=== PATIENT | male | born 1930 | race Caucasian/White ===

== ENCOUNTER 2016-06-02 09:30 | Inpatient (IN) | payer BC, OTHER ==
[~2016-06-02] VITALS: Ht 177.8 cm; Wt 93.2 kg
[~2016-06-02 09:30] MED LIST: ASPEC81 PO; AVD5 PO; B-COCAP2 PO; CRD4 PO; CRS10 PO; HYDR-5688 PO; LANS30CA12; METO1TAB69 PO; METR0.754; OMEG10007 PO; PRENTAB26 PO; PRLSR20 PO; SILD100T PO
[2016-06-02] MEDS ORDERED: CELE100C PO (09:45)
[2016-06-02] MEDS ORDERED: LISI1TAB3 PO (09:45)
[2016-06-02] MEDS ORDERED: CARB25TA12 PO (09:45)
[2016-06-02] MEDS ORDERED: B-CO1CAP3 PO (09:45)
[2016-06-02] MEDS ORDERED: MULTCAP42 PO (09:45)
[2016-06-02] MEDS ORDERED: METR0.7527 TOP (09:45)
[2016-06-02] MEDS ORDERED: METOPROLOL SUCC 50MG EXT REL TAB PO STA (10:10)
[2016-06-02] MEDS ORDERED: ACETAMINOPHEN 325 MG TAB PO STA (10:10)
[2016-06-02] MEDS ORDERED: ROSUVASTATIN CALCIUM 5 MG TAB PO ONE (10:15)
[2016-06-02] MEDS ORDERED: LISINOPRIL 5 MG TAB PO ONE (10:15)
[2016-06-02] MEDS ORDERED: SODIUM CHLORIDE 0.9% 1000ML 1,000 ML IV ONE (10:15)
[2016-06-02] MEDS ORDERED: CARBIDOPA/LEVODOPA 25/100MG TAB PO ONE ×2 (10:15→15:00)
[2016-06-02] MEDS ORDERED: ACETAMINOPHEN 500 MG TAB PO ONE (10:18)
[2016-06-02] MEDS ORDERED: LISINOPRIL 10 MG TAB PO ONE (10:30)
--- NOTE | 2016-06-02 10:33 | EMERGENCY ROOM VISIT NOTE ---
History Report prepared by Markie: Trinity Alford Under the Supervision of: Dr. Rolan Turner M.D. First contact with patient: 09:55 Chief Complaint: FEVER Stated Complaint: WEAKNESS History of Present Illness The patient is a 85 year old male who presents to the Emergency Room with complaints of worsening weakness beginning yesterday evening. He states that he just feels generally weak all over and denies feeling more weak on one side of his body. The patient had a fever on arrival in the ED. He denies feeling confused but is unsure of the day or month. He does not know who the president is. He denies any cough or abdominal pain. The patient's family states that he has had increased urinary frequency and some urinary incontinence. He was recently treated for a UTI. He has been moving his bowels normally and eating and drinking normally. The patient has not taken any medications for his fever. He has not had any of his daily medications today. Source of History: patient, family, spouse/significant other Onset: yesterday evening Position: other (global) Quality: other (weakness) Timing: worsening Associated Symptoms: + fevers, + urinary symptoms, No abdominal pain, No cough Review of Systems All systems have been listed, reviewed, and are negative other than those previously mentioned. Please see Additional Medical History Sheet. Past Medical & Surgical Medical Problems: (1) Aortic stenosis (2) Bilateral sensorineural hearing loss (3) CKD (chronic kidney disease), stage III (4) Dyslipidemia (5) Esophageal reflux (6) HTN (hypertension) (7) Hx of malignant melanoma (8) Hypoxia (9) Mild coronary artery disease (10) Osteoarthritis (11) Parkinsons disease (12) Rosacea Surgical Problems: (1) H/O aortic valve replacement (2) H/O arthroscopic knee surgery (3) H/O exploratory laparotomy (4) H/O inguinal hernia repair (5) H/O total hip arthroplasty (6) History of appendectomy (7) History of cataract surgery (8) S/P appendectomy (9) S/P AVR (aortic valve replacement) (10) S/P cardiac cath (11) S/P ear surgery (12) S/p excision malignant melanoma (13) S/p reduction of bowel obstruction Family History Non-pertinent due to advanced age. Social History Smoking Status: Never Smoker Marital Status: Housing Status: lives with family Occupation Status: retired Current/Historical Medications Scheduled Aspirin Enteric Coated (Ecotrin Or Generic *), 81 MG PO HS B-Complex Vitamins (B Complex), 1 CAP PO DAILY Carbidopa/Levodopa (Sinemet 25MG/100MG), 2 TAB PO TID Doxazosin Mesylate (Cardura *), 4 MG PO HS Dutasteride (Avodart *), 0.5 MG PO DAILY Lisinopril (Zestril), 30 MG PO DAILY Metoprolol Succ (Toprol Xl) (Toprol-Xl ), 100 MG PO DAILY Metronidazole (Topical) (Metrogel), 1 APPLN TOP DAILY Multiple Vitamin (Multivitamins), 1 CAP PO DAILY Omeprazole (Prilosec), 20 MG PO HS Rosuvastatin Calcium (Crestor *), 10 MG PO DAILY Scheduled PRN Celecoxib (Celebrex), 200 MG PO DAILY PRN for Pain Allergies Coded Allergies: No Known Allergies (Verified , 06/02/16) Physical Exam Vital Signs Date Time Temp Pulse Resp B/P Pulse Ox O2 Delivery O2 Flow Rate FiO2 06/02/16 14:10 73 22 96 06/02/16 14:00 138/67 06/02/16 13:40 70 17 96 06/02/16 13:30 125/61 06/02/16 13:15 93 Nasal Cannula 2.0 06/02/16 13:10 70 24 95 06/02/16 13:00 107/62 06/02/16 12:53 37.1 06/02/16 12:40 75 25 92 06/02/16 12:35 80 17 93 06/02/16 12:30 105/64 06/02/16 12:05 Nasal Cannula 2.0 06/02/16 12:05 80 22 92 06/02/16 12:04 86 Room Air 06/02/16 12:03 89 Room Air 06/02/16 12:00 107/55 06/02/16 11:35 84 23 93 06/02/16 11:30 116/65 06/02/16 11:05 88 23 91 06/02/16 11:00 90 23 140/68 06/02/16 10:47 93 Nasal Cannula 2.0 06/02/16 10:36 92 Room Air 06/02/16 10:30 101 25 183/96 91 3/9/17 10:01 179/96 06/02/16 09:38 39.0 99 22 183/95 99 Room Air Physical Exam GENERAL: Patient awake, alert, oriented x 3. Very hard of hearing, confused, disoriented to time and person. Patient follows commands. Patient does not appear toxic. Patient is adequately hydrated and well-nourished but feels warm to touch. SKIN: No erythema, pallor, cyanosis or rash HEENT: Normal head, pupils equal, reactive to light and accommodation. Ears with bilateral hearing aids but after removal no signs of infection. Oral cavity and posterior pharynx appear normal, upper and lower dentures with no signs of infection. Neck: Without adenopathy, no neck vein distention. LUNGS: Clear to auscultation. No wheezes, no rales, no rhonchi. HEART: 2/6 systolic murmurs. No gallops. No rubs CHEST: Well-healed sternotomy scar. ABDOMEN: No masses, no rebound, no hepatomegaly or splenomegaly. Well-healed suprapubic scar. EXTREMITIES: No signs of trauma. No pedal or pretibial edema. No calf or thigh tenderness. Old bruise on his right hand. NEUROLOGIC: Cranial nerves II-XII within normal limits. No gross motor sensory function deficits. Medical Decision & Procedures ER Provider Diagnostic Interpretation: Radiology results as stated below per my review and radiologist interpretation: CHEST ONE VIEW PORTABLE HISTORY: fever COMPARISON: Chest 08/10/2010. FINDINGS: The heart remains mildly enlarged. There are poststernotomy changes and a cardiac valve prosthesis. No focal lung consolidations to suggest pneumonia. No pleural effusions. No pneumothorax. Surgical within the left axilla. No evidence for pulmonary edema. IMPRESSION: No significant change compared to the prior study. No acute process. Electronically signed by: Italo Byrd M.D. 06/02/2016 11:38 AM Dictated Date/Time: 06/02/2016 11:37 AM Laboratory Results 06/02/16 09:48 Red Blood Count 4.15, Mean Corpuscular Volume 91.6, Mean Corpuscular Hemoglobin 31.8, Mean Corpuscular Hemoglobin Concent 34.7, Mean Platelet Volume 9.5, Neutrophils (%) (Auto) 93.3, Lymphocytes (%) (Auto) 3.9, Monocytes (%) (Auto) 1.6, Eosinophils (%) (Auto) 0.0, Basophils (%) (Auto) 0.3, Neutrophils # (Auto) 6.43, Lymphocytes # (Auto) 0.27, Monocytes # (Auto) 0.11, Eosinophils # (Auto) 0.00, Basophils # (Auto) 0.02 Test 06/02/16 09:48 06/02/16 10:29 06/02/16 10:36 06/02/16 13:06 White Blood Count 6.89 K/uL (4.8-10.8) Red Blood Count 4.15 M/uL (4.7-6.1) Hemoglobin 13.2 g/dL (14.0-18.0) Hematocrit 38.0 % (42-52) Mean Corpuscular Volume 91.6 fL (80-100) Mean Corpuscular Hemoglobin 31.8 pg (25-34) Mean Corpuscular Hemoglobin Concent 34.7 g/dl (32-36) Platelet Count 202 K/uL (130-400) Mean Platelet Volume 9.5 fL (7.4-10.4) Neutrophils (%) (Auto) 93.3 % Lymphocytes (%) (Auto) 3.9 % Monocytes (%) (Auto) 1.6 % Eosinophils (%) (Auto) 0.0 % Basophils (%) (Auto) 0.3 % Neutrophils # (Auto) 6.43 K/uL (1.4-6.5) Lymphocytes # (Auto) 0.27 K/uL (1.2-3.4) Monocytes # (Auto) 0.11 K/uL (0.11-0.59) Eosinophils # (Auto) 0.00 K/uL (0-0.5) Basophils # (Auto) 0.02 K/uL (0-0.2) RDW Standard Deviation 46.9 fL (36.4-46.3) RDW Coefficient of Variation 14.1 % (11.5-14.5) Immature Granulocyte % (Auto) 0.9 % Immature Granulocyte # (Auto) 0.06 K/uL (0.00-0.02) Total Bilirubin 0.5 mg/dl (0.2-1) Aspartate Amino Transf (AST/SGOT) 28 U/L (15-37) Alanine Aminotransferase (ALT/SGPT) 31 U/L (12-78) Alkaline Phosphatase 100 U/L (45-117) Total Protein 7.1 gm/dl (6.4-8.2) Albumin 3.7 gm/dl (3.4-5.0) Globulin 3.4 gm/dl (2.5-4.0) Albumin/Globulin Ratio 1.1 (0.9-2) Urine Color YELLOW Urine Appearance CLEAR (CLEAR) Urine pH 5.0 (4.5-7.5) Urine Specific [place] 1.018 (1.000-1.030) Urine Protein 1+ (NEG) Urine Glucose (UA) NEG (NEG) Urine Ketones 1+ (NEG) Urine Occult Blood 2+ (NEG) Urine Nitrite POS (NEG) Urine Bilirubin NEG (NEG) Urine Urobilinogen NEG (NEG) Urine Leukocyte Esterase SMALL (NEG) Urine WBC (Auto) 10-30 /hpf (0-5) Urine RBC (Auto) 0-4 /hpf (0-4) Urine Hyaline Casts (Auto) 1-5 /lpf (0-5) Urine Epithelial Cells (Auto) 10-20 /lpf (0-5) Urine Bacteria (Auto) 2+ (NEG) Influenza Type A Antigen Neg for Influ A (NEG) Influenza Type B Antigen Neg for Influ B (NEG) Lactic Acid Level 0.8 mmol/L (0.4-2.0) Influenza Type A (RT-PCR) Neg for Influ A (NEG) Influenza Type B (RT-PCR) Neg for Influ B (NEG) Laboratory results as stated above per my review. Medications Administered Medications (Trade) Dose Ordered Sig/Carlos Route Start Time Stop Time Status Last Admin Dose Admin Sodium Chloride (Nss 1000ml) 1,000 ml @ 1,000 mls/hr Q1H ONCE IV 06/02/16 10:15 06/02/16 11:14 DC 06/02/16 10:40 1,000 MLS/HR Carbidopa/Levodopa (Sinemet 25/ 100MG Tab) 2 tab ONE ONCE PO 06/02/16 10:15 06/02/16 10:17 DC 06/02/16 10:46 2 TAB Metoprolol Succinate (Toprol Xl Tab) 100 mg NOW STAT PO 06/02/16 10:10 06/02/16 10:17 DC 06/02/16 10:45 100 MG Rosuvastatin Calcium (Crestor Tab) 10 mg ONE ONCE PO 06/02/16 10:15 06/02/16 10:17 DC 06/02/16 10:43 10 MG Acetaminophen (Tylenol Tab) 1,000 mg STK-MED ONCE PO 06/02/16 10:18 06/02/16 10:21 DC 06/02/16 10:26 1,000 MG Lisinopril (Zestril Tab) 30 mg NOW ONCE PO 06/02/16 10:30 06/02/16 10:31 DC 06/02/16 10:44 30 MG Ceftriaxone Sodium (Rocephin Inj) 1 gm NOW STAT IV 06/02/16 12:50 06/02/16 12:51 DC 06/02/16 13:03 1 GM ECG Indication: weakness Rate (beats per minute): 95 Rhythm: normal sinus Findings: no acute ischemic change, no ectopy ED Course 0955: Past medical records reviewed. The patient was evaluated in room B12B. A complete history and physical examination was performed. 1010: Toprol XI tab 100 mg PO, Tylenol 1000 mg PO 1015: Crestor tab 10 mg PO, Carbidopa/Levodopa 2 tab PO, NSS 1000 ml @ 1000 mls/ hr IV 1030: Lisinopril 30 mg PO 1152: I reassessed the patient. He is sleeping soundly. His pulse ox goes to 89 % despite being on oxygen. The patient is not typically on oxygen. 1240: I reassessed the patient at this time. He is resting comfortably. I discussed the results and treatment plan with the patient and his family. I answered all pertaining questions that they had. They expressed understanding and verbalized agreement. 1248: I spoke with Dr. Ramachandran. We discussed the patient's results and treatment plan. The patient will be evaluated by the [facility] for further management. 1642: At this time I spoke with the patient's son Tal. I updated him on the results and treatment plan and answered all of his questions. Medical Decision Differential diagnoses includes Parkinson's disease, dementia, influenza, viral illness, pneumonia, UTI. Multiple labs, urinalysis, EKG and imaging were obtained. The patient appears to have urinary check infection. He arrives here with a fever but does not have significant elevation of his white count her lactic acid. The patient's mental status has declined. The patient is hypoxic. Patient will require further evaluation in the hospital with IV antibiotics. I discussed care with the hospitalist. I also discussed care with the patient and family members. Consults Time Called: [phone] Consulting Physician: Dr. Ramachandran Returned Call: [phone] Ramachandran. We discussed the patient's results and treatment plan. The patient will be evaluated by the [facility] for further management. Impression Primary Impression: Hypoxemia Additional Impressions: UTI (urinary tract infection) Fever Scribe Attestation The scribe's documentation has been prepared under my direction and personally reviewed by me in its entirety. I confirm that the note above accurately reflects all work, treatment, procedures, and medical decision making performed by me. Departure Information Dispostion Being Evaluated By Hospitalist Referrals Ahmet Heredia M.D. (PCP) Patient Instructions My [facility] Problem Qualifiers Additional Impressions: UTI (urinary tract infection) Urinary tract infection type: site unspecified Hematuria presence: without hematuria Qualified Codes: N39.0 - Urinary tract infection, site not specified Fever Fever type: unspecified Qualified Codes: R50.9 - Fever, unspecified
[2016-06-02 10:37] LABS: BASO % 0.3 %; BASO ABS # 0.02 K/uL (0-0.2); COMPLETE YES; IG% 0.9 %; LYMPH % 3.9 %; LYMPH ABS # 0.27 K/uL (1.2-3.4); MEAN CELL VOLUME 91.6 fL (80-100); MEAN CORPUSCULAR HEMOGLOBIN 31.8 pg (25-34); MEAN CORPUSCULAR HGB CONC 34.7 g/dl (32-36); MEAN PLATELET VOLUME 9.5 fL (7.4-10.4); MONO % 1.6 %; NEUT % 93.3 %; PLATELET COUNT 202 K/uL (130-400); RED BLOOD COUNT 4.15 M/uL (4.7-6.1); WHITE BLOOD COUNT 6.89 K/uL (4.8-10.8)
[2016-06-02 10:44] LABS: BUN/CREATININE RATIO 14.2 (10-20); CALCIUM 8.7 mg/dl (8.5-10.1); CREATININE 1.4 mg/dl (0.60-1.40); POTASSIUM 4.2 mmol/L (3.5-5.1)
[2016-06-02 10:47] LABS: ALB/GLOB RATIO 1.1 (0.9-2)
[2016-06-02 10:55] LABS: URINE APPEARANCE CLEAR (CLEAR); URINE BILIRUBIN NEG (NEG); URINE COLOR YELLOW; URINE NITRITE POS (NEG); URINE SPECIFIC GRAVITY 1.018 (1.000-1.030); UROBILINOGEN NEG (NEG); ZZURINE CULT IF INDIC CATH YES
[2016-06-02 11:03] LABS: MANUAL MICROSCOPIC REQUIRED? NO; REVIEW REQ? NO
--- NOTE | 2016-06-02 11:40 | DIAGNOSTIC IMAGING REPORT ---
CHEST ONE VIEW PORTABLE HISTORY: fever COMPARISON: Chest 08/10/2010. FINDINGS: The heart remains mildly enlarged. There are poststernotomy changes and a cardiac valve prosthesis. No focal lung consolidations to suggest pneumonia. No pleural effusions. No pneumothorax. Surgical within the left axilla. No evidence for pulmonary edema. IMPRESSION: No significant change compared to the prior study. No acute process. Electronically signed by: Italo Byrd M.D. 06/02/2016 11:38 AM Dictated Date/Time: 06/02/2016 11:37 AM
[2016-06-02] MEDS ORDERED: CEFTRIAXONE SOD INJ 1 GM ADDVIAL IV STA (12:50)
[2016-06-02 13:15] VITALS: O2SAT 93; Ht 177.8 cm; Wt 93.2 kg
[2016-06-02] MEDS ORDERED: ONDANSETRON INJ 2 MG/ML 2 ML VIAL IV PRN (14:15)
[2016-06-02] MEDS ORDERED: SODIUM CHLORIDE 0.9% 1000ML 1,000 ML IV SCH (14:15)
[2016-06-02 14:42] LABS: INFLUENZA A PCR Neg for Influ A (NEG); INFLUENZA B PCR Neg for Influ B (NEG)
--- NOTE | 2016-06-02 14:58 | History and Physical ---
History & Physical Date & Time of Service: Jun 02, 2016 at 14:16 Chief Complaint: Weakness Primary Care Physician: Ahmet Heredia M.D. History of Present Illness Source: patient, family ( and daughter at bedside), clinic records This is an 85 year old male with PMH bioprosthetic AVR, mild CAD, HTN, HL, who presented to the ED with generalized weakness. Hx obtained from family due to patient's mental status. Pt is unaware of why he is in the hospital. His family brought him over due to generalized weakness starting yesterday. Patient was unable to stand up today and was more lethargic and confused than usual. states usually he is off on days of the week but knows the year. Earlier today he not tell the year. He is now oriented to person, place, and year. In the ER he was found to be febrile but family did not notice fever, chills, sweats at home. Pt denies chest pain or SOB. He admits to coughing "a little bit" but states he was not coughing at home and denies sputum production. He has had rhinorrhea. Pt was recently treated for suspected UTI with Bactrim after presenting to PCP with dysuria on 04/25/16. Urinary sx resolved and urine cx grew 04/25 grew multiple lupillo. Repeat urine cx 04/28 also grew mixed lupillo. states pt is now having frequency and incontinence. No dizziness, falls, PINEDA, sinus pain, sore throat, unusual body aches, abdominal pain, N/V/D, appetite loss, dysuria, leg pain, edema, rash, wounds. No recent travel, immobilization, surgery, hospitalizations, sick contacts. Pt was hypoxic to 86% on RA in the ER. No home oxygen use. Denies hx of lung disease or VTE. Denies recent change in meds or use of OTC meds. Past Medical/Surgical History Medical Problems: (1) Aortic stenosis Status: Chronic (2) Bilateral sensorineural hearing loss Status: Chronic (3) CKD (chronic kidney disease), stage III Status: Chronic (4) Dyslipidemia Status: Chronic (5) Esophageal reflux Status: Chronic (6) HTN (hypertension) Status: Chronic (7) Hx of malignant melanoma Status: Chronic (8) Mild coronary artery disease Status: Chronic (9) Osteoarthritis Status: Chronic (10) Parkinsons disease Status: Chronic (11) Rosacea Status: Chronic Surgical Problems: (1) H/O aortic valve replacement Permanent Comment: bioprosthetic Status: Resolved (2) H/O arthroscopic knee surgery Status: Chronic (3) H/O exploratory laparotomy Status: Chronic (4) H/O inguinal hernia repair Status: Chronic (5) H/O total hip arthroplasty Status: Chronic (6) History of appendectomy Status: Resolved (7) History of cataract surgery Status: Chronic (8) S/P appendectomy Status: Chronic (9) S/P AVR (aortic valve replacement) Status: Chronic (10) S/P cardiac cath Status: Chronic (11) S/P ear surgery Status: Chronic (12) S/p excision malignant melanoma Status: Chronic (13) S/p reduction of bowel obstruction Status: Chronic Family History FH: CAD (coronary artery disease) SISTER Hypertension FATHER Social History Smoking Status: Former Smoker (quit in 1970s, prior 1 ppd several years) Alcohol Use: 1-2 glasses of wine per day Drug Use: none Marital Status: Housing status: lives with family Occupational Status: retired Immunizations History of Influenza Vaccine: Unknown Influenza Vaccine Date: Feb 01, 2008 History of Tetanus Vaccine?: yes unknown date History of Pneumococcal: yes unknown date History of Hepatitis B Vaccine: Unknown Multi-Drug Resistant Organisms History of MDRO: No Allergies Coded Allergies: No Known Allergies (Verified , 06/02/16) Home Medications Scheduled Aspirin Enteric Coated (Ecotrin Or Generic *), 81 MG PO DAILY B-Complex Vitamins (B Complex), 1 CAP PO DAILY Carbidopa/Levodopa (Sinemet 25MG/100MG), 1 TAB PO TID Celecoxib (Celebrex), 200 MG PO DAILY Doxazosin Mesylate (Cardura *), 4 MG PO HS Dutasteride (Avodart *), 0.5 MG PO DAILY Lisinopril (Zestril), 30 MG PO DAILY Metoprolol Succ (Toprol Xl) (Toprol-Xl ), 100 MG PO DAILY Metronidazole (Topical) (Metrogel), Unknown Dose TOP UD Multiple Vitamin (Multivitamins), 1 CAP PO DAILY Omeprazole (Prilosec), 20 MG PO HS Rosuvastatin Calcium (Crestor *), 10 MG PO DAILY Review of Systems Ten point ROS performed with pertinent positives and negatives noted in HPI. Physical Exam Vital Signs Date Time Temp Pulse Resp B/P Pulse Ox O2 Delivery O2 Flow Rate FiO2 06/02/16 12:53 37.1 06/02/16 12:35 80 17 93 06/02/16 12:30 105/64 06/02/16 12:05 Nasal Cannula 2.0 06/02/16 12:05 80 22 92 06/02/16 12:04 86 Room Air 06/02/16 12:03 89 Room Air 06/02/16 12:00 107/55 06/02/16 11:35 84 23 93 06/02/16 11:30 116/65 06/02/16 11:05 88 23 91 06/02/16 11:00 90 23 140/68 06/02/16 10:47 93 Nasal Cannula 2.0 06/02/16 10:36 92 Room Air 06/02/16 10:30 101 25 183/96 91 06/02/16 10:01 179/96 06/02/16 09:38 39.0 99 22 183/95 99 Room Air General Appearance: + pertinent finding (elderly male, initially sleeping but awakens easily, cooperative, in good spirits, no distress) Eyes: normal inspection, PERRL, EOMI ENT: pharynx normal, + pertinent finding (severely hard of hearing. has hearing aids bilaterally. no sinus tenderness. dry mucuous membranes.) Neck: supple, no JVD, trachea midline Respiratory/Chest: lungs clear, normal breath sounds, no respiratory distress, no accessory muscle use, + pertinent finding (O2 sats high 90s on 2L NC, decreases to 92% on RA during exam) Cardiovascular: regular rate, rhythm, no murmur, normal peripheral pulses Abdomen/GI: normal bowel sounds, non tender, soft Extremities/Musculoskelatal: no calf tenderness, normal capillary refill, no pedal edema Neurologic/Psych: normal mood/affect, + pertinent finding (initially sleeping but awakens easily and cooperates with exam, oriented to person, place, year. unable to recall why he is in the hospital. no facial droop or dysarthria. ) Skin: normal color, warm/dry, + pertinent finding (ecchymosis on RUE) Diagnostics Laboratory Results Results Past 24 Hours Test 06/02/16 09:48 06/02/16 10:29 06/02/16 10:36 06/02/16 13:06 Range/Units White Blood Count 6.89 4.8-10.8 K/uL Red Blood Count 4.15 4.7-6.1 M/uL Hemoglobin 13.2 14.0-18.0 g/dL Hematocrit 38.0 42-52 % Mean Corpuscular Volume 91.6 80-100 fL Mean Corpuscular Hemoglobin 31.8 25-34 pg Mean Corpuscular Hemoglobin Concent 34.7 32-36 g/dl Platelet Count 202 130-400 K/uL Mean Platelet Volume 9.5 7.4-10.4 fL Neutrophils (%) (Auto) 93.3 % Lymphocytes (%) (Auto) 3.9 % Monocytes (%) (Auto) 1.6 % Eosinophils (%) (Auto) 0.0 % Basophils (%) (Auto) 0.3 % Neutrophils # (Auto) 6.43 1.4-6.5 K/uL Lymphocytes # (Auto) 0.27 1.2-3.4 K/uL Monocytes # (Auto) 0.11 0.11-0.59 K/uL Eosinophils # (Auto) 0.00 0-0.5 K/uL Basophils # (Auto) 0.02 0-0.2 K/uL RDW Standard Deviation 46.9 36.4-46.3 fL RDW Coefficient of Variation 14.1 11.5-14.5 % Immature Granulocyte % (Auto) 0.9 % Immature Granulocyte # (Auto) 0.06 0.00-0.02 K/uL Sodium Level 136 136-145 mmol/L Potassium Level 4.2 3.5-5.1 mmol/L Chloride Level 104 98-107 mmol/L Carbon Dioxide Level 21 21-32 mmol/L Anion Gap 11.0 3-11 mmol/L Blood Urea Nitrogen 20 7-18 mg/dl Creatinine 1.40 0.60-1.40 mg/dl Est Creatinine Clear Calc Drug Dose 43.9 ml/min Estimated GFR () 52.7 Estimated GFR (Non- 45.5 BUN/Creatinine Ratio 14.2 10-20 Random Glucose 100 70-99 mg/dl Calcium Level 8.7 8.5-10.1 mg/dl Total Bilirubin 0.5 0.2-1 mg/dl Aspartate Amino Transf (AST/SGOT) 28 15-37 U/L Alanine Aminotransferase (ALT/SGPT) 31 12-78 U/L Alkaline Phosphatase 100 45-117 U/L Total Protein 7.1 6.4-8.2 gm/dl Albumin 3.7 3.4-5.0 gm/dl Globulin 3.4 2.5-4.0 gm/dl Albumin/Globulin Ratio 1.1 0.9-2 Urine Color YELLOW Urine Appearance CLEAR CLEAR Urine pH 5.0 4.5-7.5 Urine Specific [place] 1.018 1.000-1.030 Urine Protein 1+ NEG Urine Glucose (UA) NEG NEG Urine Ketones 1+ NEG Urine Occult Blood 2+ NEG Urine Nitrite POS NEG Urine Bilirubin NEG NEG Urine Urobilinogen NEG NEG Urine Leukocyte Esterase SMALL NEG Urine WBC (Auto) 10-30 0-5 /hpf Urine RBC (Auto) 0-4 0-4 /hpf Urine Hyaline Casts (Auto) 1-5 0-5 /lpf Urine Epithelial Cells (Auto) 10-20 0-5 /lpf Urine Bacteria (Auto) 2+ NEG Influenza Type A Antigen Neg for Influ A NEG Influenza Type B Antigen Neg for Influ B NEG Lactic Acid Level 0.8 0.4-2.0 mmol/L Microbiology Results 06/02/16 Blood Culture, Received Pending 06/02/16 Blood Culture, Received Pending 06/02/16 Urine Culture, Received Pending Diagnostic Radiology CHEST ONE VIEW PORTABLE HISTORY: fever COMPARISON: Chest 08/10/2010. FINDINGS: The heart remains mildly enlarged. There are poststernotomy changes and a cardiac valve prosthesis. No focal lung consolidations to suggest pneumonia. No pleural effusions. No pneumothorax. Surgical within the left axilla. No evidence for pulmonary edema. IMPRESSION: No significant change compared to the prior study. No acute process. EKG sinus rhythm, 95 bpm, no significant change from prior EKG as per cardiology read Impression Assessment and Plan FEVER/ TACHYCARDIA/ HYPOXIA CXR- no infiltrate or failure No leukocytosis, no hypotension, lactic acid WNL Influenza antigen negative; check influenza PCR Rule out PE- check d dimer Received 1 liter IVF's in ER Will give additional 1 liter at 100 mL/hour F/u blood cultures Continue supplemental O2 per protocol URINARY TRACT INFECTION Recent urine cultures in [facility] grew multiple lupillo Received empiric ceftriaxone in ER Continue ceftriaxone for now F/u urine culture ALTERED MENTAL STATUS Probable metabolic encephalopathy from UTI GENERALIZED WEAKNESS Likely due to UTI PT and OT consults HYPERTENSION BP initially elevated- normalized after given missed dose of lisinopril Continue lisinopril PARKINSON'S DISEASE Continue Sinemet MILD NONOBSTRUCTIVE CAD Continue aspirin, BB, KRIS-I, statin CKD STAGE III Creat 1.4; baseline 1.1-1.3 Monitor renal function Avoid nephrotoxins BPH Continue Avodart and Cardura GERD Continue PPI CODE STATUS Full code per my discussion with the /daughter. Patient seen in collaboration with Dr. Ramachandran. Please see her addendum. ADDENDUM: I have seen and examined the patient and have discussed the case with the provider above. I agree with the assessment and plan as stated. I agree with metabolic encephalopathy, however, patient is alert and appropriate in general. Generalized weakness is present with no focal deficits on exam and 5/5 strength throughout, reflexes intact, and I believe this can be explained by the UTI. There are no focal findings, or reports of dysarthria, dysphagia, odynophagia, facial droop, headache, or focal asymmetry per family who is at bedside. He lives with his alone at home. His hypoxia is mild and may be explained by poor ventilation in the setting of generalized weakness and someone exerting himself who has poor reserve. He is 97% on 2L NC and is not working to breath with no conversational dyspnea or respiratory distress. Reports of sats dropping into the mid-80s off oxygen, prompted a closer look at his lungs. CXR reveals no acute process, flu PCR is negative. Despite the known infection, fever, tachycardia, and hypoxia is concerning for PE. As he is low risk aside from age, a D-dimer was ordered and is pending. If positive, will screen with CTA. I discussed the case with Dr. Tal Granados who is the patient's some and a Radiologist in [place], [place] at the family's request. Agree with monitoring on telemetry overnight initially. Cassie Ramachandran, DO Hospitalist Level of Care Telemetry Resuscitation Status FULL RESUSCITATION VTE Prophylaxis VTE Risk Assessment Done? Y/N: Yes Risk Level: High Given or contraindicated: Enoxaparin (Lovenox)SQ
[2016-06-02 15:55] VITALS: BP 201/83; PULSE 84; TEMP 37.3; O2SAT 94
[2016-06-02] MEDS: AVODART - ORDER AWAITING ACTION SCH ×2 (16:00→22:07)
[2016-06-02 16:40] VITALS: BP 144/65
[2016-06-02 16:40] LABS: INR 1.2 (0.9-1.1); PARTIAL THROMBOPLASTIN RATIO 1.1; PROTHROMBIN TIME (PATIENT) 12.4 SECONDS (9.0-12.0)
[2016-06-02] MEDS ORDERED: OPTIRAY 320 IV PRN (17:15)
--- NOTE | 2016-06-02 19:54 | DIAGNOSTIC IMAGING REPORT ---
CT ANGIOGRAM OF THE CHEST CLINICAL HISTORY: Hypoxia, fever. COMPARISON STUDY: Chest x-ray dated 06/02/2016 TECHNIQUE: Following the IV administration of 110 mL of Optiray-320, CT angiogram of the thorax was performed from the thoracic inlet to the lung bases utilizing the pulmonary embolus protocol. Images are reviewed in the axial, sagittal, and coronal planes. IV contrast was administered without complication. MIP imaging was performed. CT DOSE: 785.61 mGy.cm FINDINGS: Images the upper abdomen reveal bilateral hydronephrosis versus parapelvic cysts. The heart is enlarged. No pathologically enlarged axillary mediastinal or hilar lymph nodes were visualized. PA sitting thoracic aorta measures 38 mm. No intimal flaps are visualized. There are moderate coronary artery calcifications. Evaluation is limited secondary to respiratory motion artifact. No emboli are visualized. There are dependent atelectatic changes. The study is limited from a technical standpoint secondary to respiratory motion artifact. There is no focal pulmonary consolidation. IMPRESSION: 1. Technically limited study secondary to respiratory motion artifact 2. No CT evidence of acute pulmonary embolism 3. No evidence of focal pulmonary consolidation Electronically signed by: Nadir Dias M.D. 06/02/2016 7:53 PM Dictated Date/Time: 06/02/2016 7:48 PM
[2016-06-02 20:00] VITALS: O2SAT 95
[2016-06-02 20:16] VITALS: BP 155/72; PULSE 82; TEMP 37.7; O2SAT 95
[2016-06-02] MEDS: DOXAZosin MESYLATE TAB 4 MG TAB PO SCH (21:14)
[2016-06-02] MEDS: ASPIRIN 81 MG ECTAB PO SCH (21:15)
[2016-06-02] MEDS: ENOXAPARIN 40 MG/0.4 ML SYR SC SCH (21:16)
[2016-06-02] MEDS: CARBIDOPA/LEVODOPA 25/100MG TAB PO SCH (21:16)
[2016-06-02] MEDS ORDERED: LEVALBUTEROL/IPRATROPIUM NEB INH SCH (21:45)
[2016-06-02] MEDS ORDERED: LEVALBUTEROL 1.25MG/0.5ML NEB INH STA (21:49)
[2016-06-02] MEDS ORDERED: IPRATROPIUM BROMIDE NEB SOLN 0.02% 2.5 ML VIAL INH STA (21:49)
--- NOTE | 2016-06-02 22:51 | DIAGNOSTIC IMAGING REPORT ---
ULTRASOUND VENOUS DOPPLER LWR EXT BILA CLINICAL HISTORY: elevated D-dimer, hypoxia COMPARISON STUDY: No previous studies for comparison. FINDINGS: Real-time and color flow Doppler imaging were performed. Flow was seen within the femoral, popliteal and calf veins with no intraluminal thrombus demonstrated. The saphenous vein is patent. IMPRESSION: No evidence of lower extremity DVT. Electronically signed by: Nadir Dias M.D. 06/02/2016 10:50 PM Dictated Date/Time: 06/02/2016 10:49 PM
[2016-06-02] MEDS: LEVALBUTEROL 1.25MG/0.5ML NEB INH SCH (23:24)
[2016-06-02] MEDS: IPRATROPIUM BROMIDE NEB SOLN 0.02% 2.5 ML VIAL INH SCH (23:24)
[2016-06-02 23:25] VITALS: PULSE 84; O2SAT 91
[2016-06-03] VITALS (16 sets, daily range): BP systolic 123–158; BP diastolic 63–72; PULSE 62–92; TEMP 36–38.9; O2SAT 91–95
[2016-06-03] MEDS: LEVALBUTEROL 1.25MG/0.5ML NEB INH SCH ×6 (03:36→23:11)
[2016-06-03] MEDS: IPRATROPIUM BROMIDE NEB SOLN 0.02% 2.5 ML VIAL INH SCH ×6 (03:36→23:11)
[2016-06-03] MEDS: ACETAMINOPHEN 325 MG TAB PO PRN ×2 (04:27→15:53)
[2016-06-03 07:03] LABS: BUN/CREATININE RATIO 18.2 (10-20); CALCIUM 8.1 mg/dl (8.5-10.1); CREATININE 1.2 mg/dl (0.60-1.40); POTASSIUM 3.4 mmol/L (3.5-5.1)
[2016-06-03] MEDS: AVODART - ORDER AWAITING ACTION SCH (08:00)
[2016-06-03] MEDS: METOPROLOL SUCC 50MG EXT REL TAB PO SCH (08:01)
[2016-06-03] MEDS: VITAMIN B COMPLEX TAB PO SCH (08:01)
[2016-06-03] MEDS: LISINOPRIL 20 MG TAB PO SCH (08:01)
[2016-06-03] MEDS: CARBIDOPA/LEVODOPA 25/100MG TAB PO SCH ×3 (08:01→20:13)
[2016-06-03] MEDS: ROSUVASTATIN CALCIUM 10 MG TAB PO SCH (08:01)
[2016-06-03] MEDS: CEROVITE ADV FORMULA TAB PO SCH (08:02)
[2016-06-03] MEDS: PANTOprazole SOD 40 MG TAB PO SCH (08:02)
[2016-06-03] MEDS: METRONIDAZOLE 0.75% TOPICAL GEL 45 GM TUBE TOP SCH (08:03)
[2016-06-03] MEDS ORDERED: POTASSIUM CHLORIDE 20 MEQ TABCR PO STA (08:06)
--- NOTE | 2016-06-03 12:00 | Progress Note ---
Medicine Progress Note Date & Time of Visit: Jun 03, 2016 at 11:39. (Maria Isabel Reyes PA-C) Subjective Patient seen and examined. at bedside states he is back to baseline mental status. Pt states his weakness has improved. He was transferred out of bed to chair by OT. He continues with urinary frequency and incontinence. Last fever was around 4 am and patient was medicated with Tylenol. He is tolerating PO. Pt denies dizziness, cough, SOB, chest pain, abdominal pain, N/V, dysuria. Has not had a BM yet. (Maria Isabel Reyes PA-C) Patient is lying in his bed comfortably in no apparent distress. No other new change or complaint. (Homero Holliday MD) Objective Last 8 Hrs Date Time Temp Pulse Resp B/P Pulse Ox O2 Delivery O2 Flow Rate FiO2 06/03/16 11:20 36.8 70 18 128/72 93 Nasal Cannula 2.0 06/03/16 08:00 92 Nasal Cannula 2.0 06/03/16 07:48 37.0 64 18 123/63 92 Room Air 06/03/16 07:21 62 20 92 Nasal Cannula 3.0 06/03/16 04:25 38.0 06/03/16 04:04 37.7 92 20 145/69 91 Nasal Cannula 3.0 06/03/16 04:00 Nasal Cannula 3.0 Physical Exam: General- pleasant alert elderly male sitting in bedside chair Eyes-anicteric ENT-hard of hearing Neck-supple, trachea midline Lungs-CTA bilaterally, no respiratory distress Heart-RRR no murmur Abdomen-soft, nontender, normal BS Extremities-no edema, no calf tenderness Neuro-alert, oriented to person and place, unable to name the year, speech clear , no facial droop, strength 5/5 all extremities Laboratory Results: Last 24 Hours Test 06/02/16 13:06 06/02/16 16:11 06/03/16 05:50 Influenza Type A (RT-PCR) Neg for Influ A Influenza Type B (RT-PCR) Neg for Influ B Prothrombin Time 12.4 SECONDS Prothromb Time International Ratio 1.2 Activated Partial Thromboplast Time 28.2 SECONDS Partial Thromboplastin Ratio 1.1 D-Dimer 8670 ug/L FEU Sodium Level 137 mmol/L Potassium Level 3.4 mmol/L Chloride Level 105 mmol/L Carbon Dioxide Level 18 mmol/L Anion Gap 14.0 mmol/L Blood Urea Nitrogen 22 mg/dl Creatinine 1.20 mg/dl Est Creatinine Clear Calc Drug Dose 50.8 ml/min Estimated GFR () 63.5 Estimated GFR (Non- 54.8 BUN/Creatinine Ratio 18.2 Random Glucose 95 mg/dl Calcium Level 8.1 mg/dl (Maria Isabel Reyes PA-C) Assessment & Plan FEVER/ TACHYCARDIA/ HYPOXIA CXR- no infiltrate or failure Presented with fever, tachycardia- resolved, hypoxia, no leukocytosis, no hypotension, lactic acid WNL Influenza antigen and PCR- negative D dimer elevated; ruled out for PE/ DVT with CTA chest and doppler of BLLE Received 1 liter IVF's in ER Given an additional 1 liter at 100 mL/hour Fever can be attributed to UTI May have been hypoxic due to poor ventilation while lethargic/ encephalopathic from UTI Wean oxygen May need 2 step prior to discharge URINARY TRACT INFECTION Recent urine cultures in [facility] grew multiple lupillo Received empiric ceftriaxone in ER On ceftriaxone (day 2) Urine culture growing gram negative bacilli Blood cultures pending HYPOKALEMIA Replace and monitor ALTERED MENTAL STATUS Probable metabolic encephalopathy from UTI Back to baseline as per GENERALIZED WEAKNESS Likely due to UTI Starting to improve PT and OT consults HYPERTENSION BP is stable Continue lisinopril PARKINSON'S DISEASE Continue Sinemet MILD NONOBSTRUCTIVE CAD Continue aspirin, BB, KRIS-I, statin CKD STAGE III Creat 1.4 -> 1.2 which is his baseline Monitor renal function Avoid nephrotoxins BPH Continue Avodart and Cardura GERD Continue PPI CODE STATUS Full code per my discussion with the /daughter. DISPOSITION Lives at home with PT, OT, social service consulted PCP is Dr. Candido Mcconnell Patient seen in collaboration with Dr. Holliday. Please see his addendum. Current Inpatient Medications: Current Inpatient Medications Medications (Trade) Dose Ordered Sig/Carlos Route Start Time Stop Time Status Last Admin Dose Admin Acetaminophen (Tylenol Tab) 650 mg Q4H PRN PO 06/02/16 14:15 07/02/16 14:14 06/03/16 04:27 650 MG Ondansetron HCl (Zofran Inj) 4 mg Q6H PRN IV 06/02/16 14:15 07/02/16 14:14 Enoxaparin Sodium 40 mg 40 mg QPM SC 06/02/16 21:00 07/02/16 20:59 06/02/16 21:16 40 MG Ceftriaxone Sodium/Dextrose (Rocephin Inj/ Dextrose Add-[place] 50ML) 50 ml @ 100 mls/hr Q24H IV 06/03/16 13:00 06/06/16 13:29 Aspirin (Ecotrin Tab) 81 mg HS PO 06/02/16 21:00 07/02/16 20:59 06/02/16 21:15 81 MG Vitamin B Complex (Vitamin B Complex) 1 tab DAILY PO 06/03/16 09:00 07/03/16 08:59 06/03/16 08:01 1 TAB Carbidopa/Levodopa (Sinemet 25/ 100MG Tab) 2 tab TID PO 06/02/16 21:00 07/02/16 20:59 06/03/16 08:01 2 TAB Doxazosin Mesylate (Cardura Tab) 4 mg HS PO 06/02/16 21:00 07/02/16 20:59 06/02/16 21:14 4 MG Lisinopril (Zestril Tab) 30 mg DAILY PO 06/03/16 09:00 07/03/16 08:59 06/03/16 08:01 30 MG Metoprolol Succinate (Toprol Xl Tab) 100 mg DAILY PO 06/03/16 09:00 07/03/16 08:59 06/03/16 08:01 100 MG Metronidazole HCl (Metrogel Topical Gel) 1 appln DAILY TOP 06/03/16 09:00 06/13/16 08:59 06/03/16 08:03 1 APPLN Rosuvastatin Calcium (Crestor Tab) 10 mg DAILY PO 06/03/16 09:00 07/03/16 08:59 06/03/16 08:01 10 MG Multivitamins/ Minerals (Multivitamin W/ Minerals Tab) 1 tab DAILY PO 06/03/16 09:00 07/03/16 08:59 06/03/16 08:02 1 TAB Pantoprazole Sodium (Protonix Tab) 40 mg QAM PO 06/03/16 09:00 07/03/16 08:59 06/03/16 08:02 40 MG Ioversol (Optiray 320) 125 ml UD PRN IV 06/02/16 17:15 06/06/16 17:14 Ipratropium Olds (Atrovent 0.02% 0.5MG/2.5ML Neb) 0.5 mg Q4R INH 06/03/16 00:00 07/03/16 00:00 06/03/16 07:21 0.5 MG Levalbuterol (Xopenex 1.25MG/ 0.5ML Neb) 1.25 mg Q4R INH 06/03/16 00:00 07/03/16 00:00 06/03/16 07:20 1.25 MG Dutasteride (Avodart Cap) 0.5 mg DAILY PO 06/04/16 09:00 07/04/16 08:59 (Maria Isabel Reyes, PA-C) Clinically improving. Urine culture is growing Gram negative bacilli. Will wait for identification. Continue Rocephin for now. Reviewed all the current management. Homero Holliday MD (Homero Holliday MD)
[2016-06-03] MEDS: CEFTRIAXONE SOD INJ 1 GM in DEXTROSE 5% ADD-VANTAGE 50ML 50 ML IV SCH (12:33)
[2016-06-03] MEDS: DOXAZosin MESYLATE TAB 4 MG TAB PO SCH (20:13)
[2016-06-03] MEDS: ASPIRIN 81 MG ECTAB PO SCH (20:14)
[2016-06-03] MEDS: ENOXAPARIN 40 MG/0.4 ML SYR SC SCH (20:15)
[2016-06-04] VITALS (21 sets, daily range): BP systolic 86–183; BP diastolic 51–85; PULSE 74–112; TEMP 36.6–39.3; O2SAT 90–95
[2016-06-04] MEDS: IPRATROPIUM BROMIDE NEB SOLN 0.02% 2.5 ML VIAL INH SCH ×2 (03:32→07:30)
[2016-06-04] MEDS: LEVALBUTEROL 1.25MG/0.5ML NEB INH SCH ×7 (03:32→23:39)
[2016-06-04] MEDS: ACETAMINOPHEN 325 MG TAB PO PRN ×2 (03:44→14:02)
[2016-06-04 07:59] LABS: HEMATOCRIT 36.2 % (42-52); MEAN CELL VOLUME 89.4 fL (80-100); MEAN CORPUSCULAR HEMOGLOBIN 31.1 pg (25-34); MEAN CORPUSCULAR HGB CONC 34.8 g/dl (32-36); RED BLOOD COUNT 4.05 M/uL (4.7-6.1)
[2016-06-04 08:25] LABS: BUN/CREATININE RATIO 20.3 (10-20); CALCIUM 7.9 mg/dl (8.5-10.1); CREATININE 1.5 mg/dl (0.60-1.40); POTASSIUM 4.2 mmol/L (3.5-5.1)
[2016-06-04] MEDS: ROSUVASTATIN CALCIUM 10 MG TAB PO SCH (08:27)
[2016-06-04] MEDS: METOPROLOL SUCC 50MG EXT REL TAB PO SCH (08:28)
[2016-06-04] MEDS: LISINOPRIL 20 MG TAB PO SCH (08:28)
[2016-06-04] MEDS: CEROVITE ADV FORMULA TAB PO SCH (08:28)
[2016-06-04 08:29] LABS: MEAN PLATELET VOLUME 10.5 fL (7.4-10.4); PLATELET COUNT 83 K/uL (130-400)
[2016-06-04] MEDS: VITAMIN B COMPLEX TAB PO SCH (08:31)
[2016-06-04] MEDS: PANTOprazole SOD 40 MG TAB PO SCH (08:31)
[2016-06-04] MEDS: DUTASTERIDE 0.5 MG PO SCH (08:32)
[2016-06-04] MEDS: METRONIDAZOLE 0.75% TOPICAL GEL 45 GM TUBE TOP SCH (08:32)
[2016-06-04] MEDS: CARBIDOPA/LEVODOPA 25/100MG TAB PO SCH ×3 (08:32→21:41)
[2016-06-04 08:46] LABS: BASO % 0.2 %; BASO ABS # 0.01 K/uL (0-0.2); COMPLETE YES; IG% 0.2 %; LYMPH % 4.3 %; MONO % 1.5 %; NEUT % 93.8 %; PLT ESTIMATE DECREASED
[2016-06-04 11:02] LABS: VACUOLIZATION 1+
[2016-06-04] MEDS: CEFTRIAXONE SOD INJ 1 GM in DEXTROSE 5% ADD-VANTAGE 50ML 50 ML IV SCH (13:07)
[2016-06-04] MEDS ORDERED: SODIUM CHLORIDE 0.9% 1000ML 1,000 ML IV SCH (13:45)
--- NOTE | 2016-06-04 13:46 | Progress Note ---
Internal Med Progress Note Date of Service: Jun 04, 2016. Provider Documentation: SUBJECTIVE: Patient is lying in his bed and is no apparent distress. More alert and answers my simple questions. Intermittent dry cough. Denies any nausea/vomiting. No other new change or complaint. OBJECTIVE: Vital Signs-as noted below Examination: General- pleasant alert elderly male sitting in bedside chair Eyes-anicteric ENT-Hard of hearing. Ears, Nose & Throat are normal looking. Neck-supple, trachea midline Lungs-CTA bilaterally, no respiratory distress Heart-RRR no murmur, Normal s1,S2. Abdomen-soft, nontender, normal BS Extremities-no edema, no calf tenderness, Weak distal pulses are present. Neuro-alert, oriented to person and place, unable to name the year, speech clear , no facial droop, strength 5/5 all extremities Lab data as noted below. ASSESSMENT & PLAN: UTI: Clinically improving.Has recurrent episodes of UTI in the recnt past. -Urine culture is growing Klebsiella and is sensitive to Cipro. Will treat for total 14 days as had episode of UTI recently. -CXR- no infiltrate or failure -Influenza antigen and PCR- negative -D dimer elevated; ruled out for PE/ DVT with CTA chest and Doppler of B/L Lower extremities. Altered Mental Status: Gradually resolving.Probably metabolic encephalopathy from UTI Back to baseline as per Generalized Weakness: Likely due to UTI. Improving now. -PT and OT consults Hypokalemia: Resolved.Continue monitoring. CKD Stage III: Creat 1.4 -> 1.2 which is his baseline -Monitoring renal function -Avoid nephrotoxins History HTN: BP has been fluctuating. -Continue lisinopril Parkinson's Disease: Stable. Continue Sinemet History Mild Non-obstructive CAD: Stable.No acute cardiac symptoms. -Continue aspirin, BB, KRIS-I, statin History BPH: Continue Avodart and Cardura GERD :Continue PPI Code Status: Full code per discussion with the /daughter. Disposition: Lives at home with . Discharge once is clinically stable. PT, OT, social service consulted PCP is Dr. Candido Mcconnell Discussed with the son in detail at bedside who is a Radiologist. Vital Signs: Date Time Temp Pulse Resp B/P Pulse Ox O2 Delivery O2 Flow Rate FiO2 06/04/16 12:27 37.0 90 18 183/85 92 Nasal Cannula 2.0 06/04/16 11:43 90 16 92 Nasal Cannula 1.0 06/04/16 08:00 93 Nasal Cannula 2.0 06/04/16 07:49 36.6 85 18 137/75 93 Nasal Cannula 2.0 06/04/16 07:32 74 16 95 Room Air 06/04/16 04:50 94 Nasal Cannula 2.0 06/04/16 04:47 36.7 06/04/16 04:02 37.6 89 18 164/79 94 2.0 06/04/16 03:32 94 20 90 Room Air 06/04/16 00:18 39.3 100 18 124/69 93 2.0 06/04/16 00:00 94 Nasal Cannula 2.0 06/03/16 23:11 73 20 92 Nasal Cannula 1.0 06/03/16 20:01 78 18 93 Nasal Cannula 1.0 06/03/16 20:00 94 Nasal Cannula 2.0 06/03/16 19:47 36.4 76 19 134/66 94 Nasal Cannula 2.0 06/03/16 16:00 94 Nasal Cannula 1.0 06/03/16 15:54 38.9 86 18 158/71 94 Nasal Cannula 1.0 06/03/16 15:29 81 22 95 Nasal Cannula 2.0 Lab Results: Results Past 24 Hours Test 06/04/16 07:18 Range/Units White Blood Count 4.70 4.8-10.8 K/uL Red Blood Count 4.05 4.7-6.1 M/uL Hemoglobin 12.6 14.0-18.0 g/dL Hematocrit 36.2 42-52 % Mean Corpuscular Volume 89.4 80-100 fL Mean Corpuscular Hemoglobin 31.1 25-34 pg Mean Corpuscular Hemoglobin Concent 34.8 32-36 g/dl Platelet Count 83 130-400 K/uL Mean Platelet Volume 10.5 7.4-10.4 fL Neutrophils (%) (Auto) 93.8 % Lymphocytes (%) (Auto) 4.3 % Monocytes (%) (Auto) 1.5 % Eosinophils (%) (Auto) 0.0 % Basophils (%) (Auto) 0.2 % Neutrophils # (Auto) 4.41 1.4-6.5 K/uL Lymphocytes # (Auto) 0.20 1.2-3.4 K/uL Monocytes # (Auto) 0.07 0.11-0.59 K/uL Eosinophils # (Auto) 0.00 0-0.5 K/uL Basophils # (Auto) 0.01 0-0.2 K/uL RDW Standard Deviation 46.0 36.4-46.3 fL RDW Coefficient of Variation 14.0 11.5-14.5 % Immature Granulocyte % (Auto) 0.2 % Immature Granulocyte # (Auto) 0.01 0.00-0.02 K/uL Blood Smear Review Toxic Vacuolation 1+ Platelet Estimate DECREASED Sodium Level 135 136-145 mmol/L Potassium Level 4.2 3.5-5.1 mmol/L Chloride Level 101 98-107 mmol/L Carbon Dioxide Level 23 21-32 mmol/L Anion Gap 11.0 3-11 mmol/L Blood Urea Nitrogen 30 7-18 mg/dl Creatinine 1.50 0.60-1.40 mg/dl Est Creatinine Clear Calc Drug Dose 40.6 ml/min Estimated GFR () 48.5 Estimated GFR (Non- 41.9 BUN/Creatinine Ratio 20.3 10-20 Random Glucose 106 70-99 mg/dl Calcium Level 7.9 8.5-10.1 mg/dl
[2016-06-04] MEDS ORDERED: DILTIAZEM HCL 5 MG/ML 5 ML VIAL IV STA (14:45)
[2016-06-04] MEDS ORDERED: METOPROLOL SUCC 50MG EXT REL TAB PO STA (17:32)
[2016-06-04] MEDS: HEPARIN 25,000 UNIT/500ML D5W 500 ML IV PRN (19:38)
[2016-06-04] MEDS: CIPROFLOXACIN 500 MG TAB PO SCH (21:41)
[2016-06-04] MEDS: ASPIRIN 81 MG ECTAB PO SCH (21:41)
[2016-06-04] MEDS: DOXAZosin MESYLATE TAB 4 MG TAB PO SCH (21:41)
[2016-06-05] VITALS (14 sets, daily range): BP systolic 98–130; BP diastolic 62–72; PULSE 74–112; TEMP 36.4–37; O2SAT 92–96
[2016-06-05] MEDS: LEVALBUTEROL 1.25MG/0.5ML NEB INH SCH ×2 (03:09→07:42)
[2016-06-05 03:26] LABS: PARTIAL THROMBOPLASTIN RATIO 6.4
[2016-06-05 04:59] LABS: PARTIAL THROMBOPLASTIN RATIO 4.5
[2016-06-05 05:46] LABS: HEMATOCRIT 34.5 % (42-52); MEAN CELL VOLUME 88.7 fL (80-100); MEAN CORPUSCULAR HEMOGLOBIN 31.4 pg (25-34); MEAN CORPUSCULAR HGB CONC 35.4 g/dl (32-36); RED BLOOD COUNT 3.89 M/uL (4.7-6.1)
[2016-06-05 05:55] LABS: PLATELET COUNT 53 K/uL (130-400)
[2016-06-05 06:06] LABS: PARTIAL THROMBOPLASTIN RATIO 2.8
[2016-06-05] MEDS: HEPARIN 25,000 UNIT/500ML D5W 500 ML IV PRN ×3 (06:14→22:24)
[2016-06-05 06:17] LABS: BUN/CREATININE RATIO 21.4 (10-20); CALCIUM 7.4 mg/dl (8.5-10.1); CREATININE 1.7 mg/dl (0.60-1.40); POTASSIUM 4.1 mmol/L (3.5-5.1)
[2016-06-05 06:31] LABS: THYROID STIMULATING HORMONE 1.85 uIu/ml (0.300-4.500)
[2016-06-05] MEDS: METOPROLOL SUCC 50MG EXT REL TAB PO SCH (07:31)
[2016-06-05] MEDS: LISINOPRIL 20 MG TAB PO SCH (07:32)
[2016-06-05] MEDS: DUTASTERIDE 0.5 MG PO SCH (07:33)
[2016-06-05] MEDS: CIPROFLOXACIN 500 MG TAB PO SCH ×2 (07:34→21:23)
[2016-06-05] MEDS: ROSUVASTATIN CALCIUM 10 MG TAB PO SCH (07:34)
[2016-06-05] MEDS: PANTOprazole SOD 40 MG TAB PO SCH (07:35)
[2016-06-05] MEDS: CARBIDOPA/LEVODOPA 25/100MG TAB PO SCH ×3 (07:35→21:24)
[2016-06-05] MEDS: METRONIDAZOLE 0.75% TOPICAL GEL 45 GM TUBE TOP SCH (07:35)
[2016-06-05] MEDS: SODIUM CHLORIDE 0.9% 1000ML 1,000 ML IV SCH ×2 (11:15→21:28)
[2016-06-05] MEDS ORDERED: AMIODARONE 360MG / 200ML D5W ONE (11:28)
[2016-06-05] MEDS ORDERED: AMIODARONE 150MG / 100ML D5W ONE (11:28)
[2016-06-05] MEDS ORDERED: AMIODARONE IV BOLUS / DRIP IV STA (11:48)
[2016-06-05] MEDS ORDERED: SODIUM CHLORIDE 0.9% 500ML 500 ML IV SCH (12:00)
[2016-06-05] MEDS ORDERED: METOPROLOL TARTRATE 1 MG/ML VIAL IV PRN (12:00)
--- NOTE | 2016-06-05 12:01 | Progress Note ---
Internal Med Progress Note Date of Service: Jun 05, 2016. Provider Documentation: SUBJECTIVE: Patient is lying in his bed and is no apparent distress. More alert and answers my simple questions. Intermittent dry cough. Denies any nausea/vomiting. Reviewed all the events since yesterday. No other new change or complaint. OBJECTIVE: Vital Signs-as noted below Examination: General- pleasant alert elderly male sitting in bedside chair Eyes-anicteric ENT-Hard of hearing. Ears, Nose & Throat are normal looking. Neck-supple, trachea midline Lungs-CTA bilaterally, no respiratory distress Heart: Irregular, no murmur, Normal s1,S2. Rate in 90-120 range. Abdomen-soft, nontender, normal BS Extremities-no edema, no calf tenderness, Weak distal pulses are present. Neuro-alert, oriented to person and place, unable to name the year, speech clear , no facial droop, strength 5/5 all extremities Lab data as noted below. ASSESSMENT & PLAN: UTI: Clinically improving.Has recurrent episodes of UTI in the recnt past. -Urine culture is growing Klebsiella and is sensitive to Cipro. Will treat for total 14 days as had episode of UTI recently. -CXR- no infiltrate or failure -Influenza antigen and PCR- negative -D dimer elevated; ruled out for PE/ DVT with CTA chest and Doppler of B/L Lower extremities. New Onset Atrial Fibrillation: Rate has been above 100. -Started I/V Heparin -Started metoprolol XR 50 mg daily -Requested Cardiology consult -Ordered Echocardiogram Elevated Troponin: Likely due to demand ischemia caused by Atrial Fibrillation. -Troponin is trending downwards ( 0.106--> 0.118 --> 0.106) -Continue monitoring -Already on Heparin Altered Mental Status: Gradually resolving.Probably metabolic encephalopathy from UTI Back to baseline as per Generalized Weakness: Likely due to UTI. Improving now. -PT and OT consults Hypokalemia: Resolved.Continue monitoring. CKD Stage III: Creat 1.4 -> 1.2 which is his baseline -Monitoring renal function -Avoid nephrotoxins History HTN: BP has been fluctuating. -Continue lisinopril Parkinson's Disease: Stable. Continue Sinemet History Mild Non-obstructive CAD: Stable.No acute cardiac symptoms. -Continue aspirin, BB, KRIS-I, statin History BPH: Continue Avodart and Cardura GERD :Continue PPI Code Status: Full code per discussion with the /daughter. DVT Prophylaxis: I/V Heparin Disposition: Lives at home with . Discharge once is clinically stable. PT, OT, social service consulted PCP is Dr. Cnadido Mcconnell Discussed with the son in detail at bedside who is a Radiologist. Vital Signs: Date Time Temp Pulse Resp B/P Pulse Ox O2 Delivery O2 Flow Rate FiO2 06/05/16 08:00 Nasal Cannula 1.0 06/05/16 07:42 90 20 95 Nasal Cannula 1.0 06/05/16 07:39 37.0 85 20 130/72 95 Nasal Cannula 1.0 06/05/16 04:02 36.8 112 20 120/70 95 Nasal Cannula 1.0 06/05/16 04:00 95 Nasal Cannula 1.0 06/05/16 03:09 100 20 93 Nasal Cannula 2.0 06/05/16 00:00 92 Nasal Cannula 1.0 06/04/16 23:39 82 22 91 Nasal Cannula 2.0 06/04/16 23:22 37.0 104 16 112/68 92 Nasal Cannula 1.0 06/04/16 20:12 36.9 97 20 114/69 93 Nasal Cannula 1.0 06/04/16 20:00 90 Nasal Cannula 2.0 06/04/16 19:21 81 14 90 Nasal Cannula 2.0 06/04/16 17:24 90 16 93 Nasal Cannula 0.5 06/04/16 16:14 36.7 110 20 86/58 93 Nasal Cannula 1.0 06/04/16 15:48 36.7 112 20 92 1.0 06/04/16 15:15 36.7 112 20 97/51 92 Nasal Cannula 1.0 06/04/16 12:27 37.0 90 18 183/85 92 Nasal Cannula 2.0 06/04/16 12:00 93 Nasal Cannula 2.0 06/04/16 12:00 93 Nasal Cannula 2.0 Lab Results: Results Past 24 Hours Test 06/04/16 22:17 06/05/16 01:45 06/05/16 04:30 06/05/16 05:35 Range/Units Troponin I 0.118 0.106 0-0.045 ng/ml Activated Partial Thromboplast Time 167.6 116.9 73.0 21.0-31.0 SECONDS Partial Thromboplastin Ratio 6.4 4.5 2.8 White Blood Count 4.20 4.8-10.8 K/uL Red Blood Count 3.89 4.7-6.1 M/uL Hemoglobin 12.2 14.0-18.0 g/dL Hematocrit 34.5 42-52 % Mean Corpuscular Volume 88.7 80-100 fL Mean Corpuscular Hemoglobin 31.4 25-34 pg Mean Corpuscular Hemoglobin Concent 35.4 32-36 g/dl RDW Standard Deviation 46.8 36.4-46.3 fL RDW Coefficient of Variation 14.3 11.5-14.5 % Platelet Count 53 130-400 K/uL Mean Platelet Volume 12.0 7.4-10.4 fL Sodium Level 136 136-145 mmol/L Potassium Level 4.1 3.5-5.1 mmol/L Chloride Level 104 98-107 mmol/L Carbon Dioxide Level 24 21-32 mmol/L Anion Gap 8.0 3-11 mmol/L Blood Urea Nitrogen 36 7-18 mg/dl Creatinine 1.70 0.60-1.40 mg/dl Est Creatinine Clear Calc Drug Dose 35.7 ml/min Estimated GFR () 41.7 Estimated GFR (Non- 36.0 BUN/Creatinine Ratio 21.4 10-20 Random Glucose 99 70-99 mg/dl Calcium Level 7.4 8.5-10.1 mg/dl Thyroid Stimulating Hormone (TSH) 1.850 0.300-4.500 uIu/ml
--- NOTE | 2016-06-05 12:27 | ECHOCARDIOGRAM REPORT ---
*NOTICE TO RECEIVING CONSTITUTION PARTY AGENCY This information is strictly Confidential and protected under [place] law. [place] law prohibits you from making any further disclosure of this information unless further disclosure is expressly permitted by the written consent of the person to whom it pertains or is authorized by law. A general authorization for the release of medical or other information is not sufficient for this purpose. Hospital accepts no responsibility if the information is made available to any other person, INCLUDING THE PATIENT. Interpretation Summary * Name: MANISH MUKHERJEE Study Date: 06/05/2016 10:29 AM BP: 120/70 mmHg * Patient Location: [facility] [place] HR: 115 * : 1930 (M/d/yyyy) Gender: Male Height: 70 in * Age: 85 yrs Ethnicity: [place] Weight: 198 lb * Ordering Physician: Homero Holliday * Referring Physician: Self, Referred * Performed By: Manish Mendieta RDCS * * Reason For Study: A-fib * BSA: 2.1 m2 * -- Conclusions -- * Small, underfilled LV chamber with mild concentric LVH. * Hyperdynamic LV systolic function, EF >70%. * No segmental left ventricular wall motion abnormalities are noted. * There is a bioprosthetic aortic valve. * The gradient is normal for this prosthetic aortic valve. * Doppler evidence of regurgitation is probably normal for this prosthetic aortic valve. * There is moderate mitral annular calcification. * The mitral valve leaflets appear thickened, but open well. * There is no mitral regurgitation noted. * There is no mitral valve stenosis. * Mild left atrial enlargement. Procedure Details * A complete two-dimensional transthoracic echocardiogram was performed (2D, M-mode, Doppler and color flow Doppler). * The study was technically adequate. Left Ventricle * The left ventricular cavity is small. * There is mild concentric left ventricular hypertrophy. * The left ventricle is hyperdynamic. * No segmental left ventricular wall motion abnormalities are noted. * Ejection Fraction = >70 %. * The left ventricular wall motion is normal. Right Ventricle * The right ventricular cavity size is normal (basal dimension <4.2 cm in right ventricular apical 4-chamber view). * The right ventricular systolic function is normal as assessed by tricuspid annular plane systolic excursion (TAPSE) (normal >1.5 cm). Atria * The left atrium is mildly dilated. * Right atrial size is normal. * No ASD detected; PFO is not assessed. Mitral Valve * There is moderate mitral annular calcification. * The mitral valve leaflets appear thickened, but open well. * There is no mitral valve stenosis. * There is no mitral regurgitation noted. Tricuspid Valve * The tricuspid valve is normal in structure and function. Aortic Valve * There is a bioprosthetic aortic valve. * The gradient is normal for this prosthetic aortic valve. * Doppler evidence of regurgitation is probably normal for this prosthetic aortic valve. Pulmonic Valve * The pulmonary valve is not well seen, but the Doppler examination is normal without significant regurgitation or stenosis. Great Vessels * The aortic root and proximal ascending aorta are normal sized. Pericardium/Pleural * There is no pericardial effusion. MMode 2D Measurements and Calculations IVSd 1.2 cm IVSs 1.8 cm LVIDd 3.7 cm LVIDs 2.1 cm LVPWd 1.2 cm LVPWs 1.6 cm IVS/LVPW 0.98 FS 44.2 % EDV(Teich) 57.5 ml ESV(Teich) 13.6 ml EF(Teich) 76.3 % EDV(cubed) 50.0 ml ESV(cubed) 8.7 ml EF(cubed) 82.6 % % IVS thick 47.1 % % LVPW thick 25.2 % LV mass(C)d 152.3 grams LV mass(C)dI 73.3 grams/m\S\2 LV mass(C)s 125.0 grams LV mass(C)sI 60.1 grams/m\S\2 SV(Teich) 43.9 ml SI(Teich) 21.1 ml/m\S\2 SV(cubed) 41.3 ml SI(cubed) 19.9 ml/m\S\2 EPSS 0.52 cm Ao root diam 3.3 cm Ao root area 8.5 cm\S\2 ACS 1.1 cm LA dimension 4.7 cm asc Aorta Diam 4.0 cm LA/Ao 1.4 LVOT diam 2.0 cm LVOT area 3.2 cm\S\2 LVAd ap4 28.2 cm\S\2 LVLd ap4 9.2 cm EDV(MOD-sp4) 71.0 ml LVAs ap4 13.3 cm\S\2 LVLs ap4 7.4 cm ESV(MOD-sp4) 20.0 ml EF(MOD-sp4) 71.8 % LVAd ap2 19.0 cm\S\2 LVLd ap2 8.0 cm EDV(MOD-sp2) 37.0 ml LVAs ap2 9.2 cm\S\2 LVLs ap2 6.5 cm ESV(MOD-sp2) 11.0 ml EF(MOD-sp2) 70.3 % SV(MOD-sp4) 51.0 ml SI(MOD-sp4) 24.5 ml/m\S\2 SV(MOD-sp2) 26.0 ml SI(MOD-sp2) 12.5 ml/m\S\2 Doppler Measurements and Calculations MV E max aline 97.2 cm/sec MV dec time 0.21 sec Ao V2 max 254.9 cm/sec Ao max PG 26.0 mmHg Ao max PG (full) 22.0 mmHg Ao V2 mean 177.0 cm/sec Ao mean PG 14.6 mmHg Ao mean PG (full) 12.4 mmHg Ao V2 VTI 41.1 cm GENEVIEVE(I,A) 1.3 cm\S\2 GENEVIEVE(I,D) 1.3 cm\S\2 GENEIVEVE(V,A) 1.2 cm\S\2 GENEVIEVE(V,D) 1.2 cm\S\2 LV V1 max PG 3.9 mmHg LV V1 mean PG 2.2 mmHg LV V1 max 99.3 cm/sec LV V1 mean 69.4 cm/sec LV V1 VTI 16.6 cm SV(Ao) 351.5 ml SI(Ao) 169.1 ml/m\S\2 SV(LVOT) 53.0 ml SI(LVOT) 25.5 ml/m\S\2 PA V2 max 153.7 cm/sec PA max PG 9.4 mmHg TR max aline 235.7 cm/sec
[2016-06-05] MEDS: AMIODARONE / D5W 200 ML IV SCH ×3 (12:30→21:29)
[2016-06-05 12:49] LABS: PARTIAL THROMBOPLASTIN RATIO 5.8
[2016-06-05] MEDS: IPRATROPIUM BROMIDE NEB SOLN 0.02% 2.5 ML VIAL INH SCH ×3 (14:31→19:28)
[2016-06-05 14:40] LABS: PARTIAL THROMBOPLASTIN RATIO 3.7
--- NOTE | 2016-06-05 17:15 | CARDIOLOGY CONSULTATION ---
DATE OF CONSULTATION: 06/05/2016 CONSULTATION REQUESTED BY: Dr. Holliday. REASON FOR CONSULTATION: New onset of atrial fibrillation with rapid ventricular response. HISTORY OF PRESENT ILLNESS: Mr. Granados is a very pleasant 85-year-old gentleman who normally follows with Dr. Caballero of our cardiology practice. He presented to [facility] on 06/02/2016 with report of a mental status change and weakness. At that time, the patient was found to have a urinary tract infection and was started on appropriate medications. His mental status was starting to improve and was back to baseline according to his when on 06/04/2016, the patient went into atrial fibrillation with rapid ventricular response upon ambulating. At that time, he was transferred to the other telemetry unit. He was given IV Cardizem and metoprolol x1 for rate control and started on a heparin drip. From a cardiac standpoint, the patient is completely without complaint. He denies any chest pain, shortness of breath, palpitations, lightheadedness, dizziness, or syncope. He still does appear confused, but again this is apparently his baseline. His and son were at the bedside during the interview. PAST SURGICAL HISTORY: 1. Aortic valve replacement with a 23 mm Kim-De [place] pericardial valve in 2009. 2. Hip replacement. 3. Hernia repair. 4. Tonsil and adenoidectomy. 5. Cataract surgery. 6. Appendectomy. 7. Knee arthroscopy. 8. Exploratory laparotomy. 9. Colonoscopy. MEDICAL ILLNESSES: 1. Aortic stenosis, status post aortic valve replacement. 2. Ambulatory dysfunction not compliant with using a cane. 3. History of GERD. 4. Dyslipidemia. 5. Hypertension. 6. Stage III chronic kidney disease. FAMILY HISTORY: Noncontributory. SOCIAL HISTORY: The patient has a very remote tobacco use history, quit in 1974. Denies any alcohol or recreational drug use. He is and lives at home with his . Again, he has difficulty ambulating, he was supposed to ambulate with a cane, but he refuses. REVIEW OF SYSTEMS: As per HPI, all other review of systems reviewed and negative at this time. ALLERGIES: No known drug allergies. MEDICATIONS AN OUTPATIENT: 1. Toprol-XL 100 mg daily. 2. Crestor 10 mg daily. 3. Lisinopril 30 mg daily. 4. Aspirin 81 mg daily. 5. Cardura 4 mg at bedtime. 6. Sinemet 3 times a day. 7. Prilosec daily. 8. Avodart daily. PHYSICAL EXAMINATION: VITALS: Temperature is 36.9, pulse 88, respiratory rate 12, blood pressure 100/62. GENERAL: Awake, alert, oriented times self and place, no acute distress. HEENT: Normocephalic, atraumatic. Pupils equal, round, and reactive to light and accommodation. Extraocular muscles intact. Anicteric sclerae. Moist mucous membranes. NECK: No JVD, no bruit. CARDIOVASCULAR: Irregularly irregular and fast. Unable to appreciate murmurs, rubs or gallops. PULMONARY: Clear to auscultation bilaterally. No rales, rhonchi, or wheezing. ABDOMEN: Bowel sounds x4, soft. No rebound, guarding, tenderness. No organomegaly. EXTREMITIES: No clubbing, cyanosis or edema. +2 pedal pulses bilaterally. SKIN: Warm and dry. TEST RESULTS: A 12-lead EKG performed 06/02/2016 independently reviewed at this time shows normal sinus rhythm at 95 beats per minute, normal axis, normal intervals, normal study. EKG from 06/04/2016 at 1351 independently reviewed at this time shows atrial fibrillation with rapid ventricular response at 122 beats per minute, QTC of 370 milliseconds. A 2-D echocardiogram was read as hyperdynamic LV systolic function, EF greater than 70%, small under filled LV chamber with mild concentric LVH, no segmental left ventricular wall motion abnormalities were noted. Bioprosthetic aortic valve with normal gradients, moderate mitral annular calcification, thickened mitral valve leaflets, no regurgitation, mild left atrial enlargement. LABORATORY STUDIES OF SIGNIFICANCE: Sodium 136, potassium 4.1, BUN 36, creatinine 1.7. IMPRESSION: 1. New onset of atrial fibrillation with rapid ventricular response. 2. Urinary tract infection. 3. Volume depletion. 4. Ambulatory dysfunction. 5. Status post aortic valve replacement. RECOMMENDATIONS: It was my pleasure to see Mr. Granados in consultation today. The pathophysiology and treatment options for atrial fibrillation were discussed with the patient, his and his son who is also a radiologist in great detail. They are counseled that given the fact that he has been in atrial fibrillation for less than 48 hours along with the fact that I do not believe him to be a long-term anticoagulation candidate, that I believe the most prudent course of action at this point would be to try and convert him to normal sinus rhythm. So in order to do that we will correct his volume depletion and start him on IV amiodarone. He has already been started on heparin, but again I do not believe he is a long-term anticoagulation candidate. Otherwise, he is to be continued on his beta-savage which could be titrated as needed depending on his vital signs. The results of the echocardiogram were also discussed with the patient's son. Thank you very much for allowing me to participate in the care of your patient.
[2016-06-05] MEDS: ASPIRIN 81 MG ECTAB PO SCH (21:23)
[2016-06-05] MEDS: DOXAZosin MESYLATE TAB 4 MG TAB PO SCH (21:24)
[2016-06-05 21:27] LABS: PARTIAL THROMBOPLASTIN RATIO 3.4
[2016-06-06] VITALS (14 sets, daily range): BP systolic 105–123; BP diastolic 69–79; PULSE 74–88; TEMP 36.3–36.7; O2SAT 94–98
[2016-06-06] MEDS: AMIODARONE / D5W 200 ML IV SCH ×2 (04:15→17:07)
[2016-06-06 04:25] LABS: HEMATOCRIT 33.9 % (42-52); MEAN CELL VOLUME 87.8 fL (80-100); MEAN CORPUSCULAR HEMOGLOBIN 31.1 pg (25-34); MEAN CORPUSCULAR HGB CONC 35.4 g/dl (32-36); MEAN PLATELET VOLUME 12.4 fL (7.4-10.4); PLATELET COUNT 57 K/uL (130-400); RED BLOOD COUNT 3.86 M/uL (4.7-6.1); WHITE BLOOD COUNT 4.96 K/uL (4.8-10.8)
[2016-06-06 04:39] LABS: BUN/CREATININE RATIO 22.7 (10-20); CALCIUM 7.3 mg/dl (8.5-10.1); CREATININE 1.8 mg/dl (0.60-1.40); MAGNESIUM 2.4 mg/dl (1.8-2.4); POTASSIUM 4.3 mmol/L (3.5-5.1)
[2016-06-06 04:43] LABS: PARTIAL THROMBOPLASTIN RATIO 2.7
[2016-06-06] MEDS: HEPARIN 25,000 UNIT/500ML D5W 500 ML IV PRN ×2 (05:20→13:33)
[2016-06-06] MEDS: SODIUM CHLORIDE 0.9% 1000ML 1,000 ML IV SCH ×2 (06:16→16:21)
[2016-06-06 07:16] LABS: COMPLETE YES; ECHINOCYTES 1+; EOSINOPHIL % 2.7 %; LARGE PLATELETS 2+; LYMPHOCYTE % 18.2 %; NEUTROPHILS % 39.1 %; VACUOLIZATION 1+; VARIANT LYM ABS # 1.85 K/uL; VARIANT LYMPHOCYTE % 37.3 %
[2016-06-06] MEDS: CIPROFLOXACIN 500 MG TAB PO SCH ×2 (07:48→20:46)
[2016-06-06] MEDS: ROSUVASTATIN CALCIUM 10 MG TAB PO SCH (07:48)
[2016-06-06] MEDS: METOPROLOL SUCC 50MG EXT REL TAB PO SCH (07:49)
[2016-06-06] MEDS: LISINOPRIL 20 MG TAB PO SCH (07:49)
[2016-06-06] MEDS: PANTOprazole SOD 40 MG TAB PO SCH (07:50)
[2016-06-06] MEDS: CARBIDOPA/LEVODOPA 25/100MG TAB PO SCH ×3 (07:50→20:46)
[2016-06-06] MEDS: METRONIDAZOLE 0.75% TOPICAL GEL 45 GM TUBE TOP SCH (07:51)
[2016-06-06] MEDS: DUTASTERIDE 0.5 MG PO SCH (07:52)
--- NOTE | 2016-06-06 11:43 | Progress Note ---
Internal Med Progress Note Date of Service: Jun 06, 2016. Provider Documentation: SUBJECTIVE: Patient is sitting in the chair comfortably and is no apparent distress. More alert and answers my simple questions. Intermittent dry cough. Denies any nausea/vomiting. Remains in A. Fib and rate is now in 80's. No other new change or complaint. OBJECTIVE: Vital Signs-as noted below Examination: General- pleasant alert elderly male sitting in bedside chair Eyes-anicteric ENT-Hard of hearing. Ears, Nose & Throat are normal looking. Neck-supple, trachea midline Lungs-CTA bilaterally, no respiratory distress Heart: Irregular, no murmur, Normal s1,S2. Rate in low 80s. Abdomen-soft, nontender, normal BS Extremities-no edema, no calf tenderness, Weak distal pulses are present. Neuro-alert, oriented to person and place, unable to name the year, speech clear , no facial droop, strength 5/5 all extremities Lab data as noted below. ASSESSMENT & PLAN: Echocardiogram (06/05/2016) Small, underfilled LV chamber with mild concentric LVH. Hyperdynamic LV systolic function, EF >70%. No segmental left ventricular wall motion abnormalities are noted. There is a bioprosthetic aortic valve. The gradient is normal for this prosthetic aortic valve. Doppler evidence of regurgitation is probably normal for this prosthetic aortic valve. There is moderate mitral annular calcification. The mitral valve leaflets appear thickened, but open well.There is no mitral regurgitation noted. There is no mitral valve stenosis. Mild left atrial enlargement. UTI: Clinically improving.Has recurrent episodes of UTI in the recent past. -Urine culture is growing Klebsiella and is sensitive to Cipro Day # 3). Received Rocephin for 3 days. Will treat for total 14 days as had episode of UTI recently. -CXR- no infiltrate or failure -Influenza antigen and PCR- negative -D dimer elevated; ruled out for PE/ DVT with CTA chest and Doppler of B/L Lower extremities. New Onset Atrial Fibrillation: Rate has been i 80's. -Continue I/V Heparin -Continue metoprolol XR 50 mg daily -Continue Amiodarone. may need cardioversion if doped not covert. -Reviewed Cardiology consult. Thanks for input. -Reviewed the findings of Echocardiogram Elevated Troponin: Likely due to demand ischemia caused by Atrial Fibrillation. -Troponin is trending downwards ( 0.106--> 0.118 --> 0.106) -Continue monitoring -Already on Heparin Thrombocytopenia: Likely due to heparin. Will continue monitoring. -Check for HIT Altered Mental Status: Gradually resolving.Probably metabolic encephalopathy from UTI Back to baseline as per Generalized Weakness: Likely due to UTI. Improving now. -PT and OT consults Hypokalemia: Resolved.Continue monitoring. VERONIKA On CKD Stage III: Creat 1.8 -> 1.2 which is his baseline -Monitoring renal function -Avoid nephrotoxins History HTN: BP has been fluctuating. -Continue lisinopril Parkinson's Disease: Stable. Continue Sinemet History Mild Non-obstructive CAD: Stable.No acute cardiac symptoms. -Continue aspirin, BB, KRIS-I, statin History BPH: Continue Avodart and Cardura GERD :Continue PPI Code Status: Full code per discussion with the /daughter. DVT Prophylaxis: I/V Heparin Disposition: Lives at home with . Discharge once is clinically stable. PT, OT, social service consulted PCP is Dr. Candido Mcconnell Called and left message for son for update . Discussed with the and daughter in detail at bedside. Vital Signs: Date Time Temp Pulse Resp B/P Pulse Ox O2 Delivery O2 Flow Rate FiO2 06/06/16 11:25 36.3 83 16 112/74 97 2.0 06/06/16 08:00 98 Nasal Cannula 1.0 06/06/16 07:46 36.6 84 16 111/69 98 2.0 06/06/16 04:00 98 Nasal Cannula 1.0 06/06/16 03:45 36.5 74 18 112/72 98 Nasal Cannula 2.0 06/06/16 00:03 36.3 81 18 105/72 96 Nasal Cannula 2.0 06/06/16 00:00 96 Nasal Cannula 1.0 06/05/16 20:02 36.5 83 18 98/62 96 Nasal Cannula 1.0 06/05/16 20:00 96 Nasal Cannula 1.0 06/05/16 19:28 77 12 96 Nasal Cannula 1.0 06/05/16 16:11 36.4 81 16 100/63 95 Nasal Cannula 1.0 06/05/16 16:00 96 Nasal Cannula 1.0 06/05/16 15:50 74 12 96 Nasal Cannula 1.0 06/05/16 14:31 74 20 96 Nasal Cannula 1.0 06/05/16 12:00 Nasal Cannula 1.0 Lab Results: Results Past 24 Hours Test 06/05/16 12:13 06/05/16 14:08 06/05/16 20:57 06/06/16 04:05 Range/Units Activated Partial Thromboplast Time 151.5 97.0 88.1 70.0 21.0-31.0 SECONDS Partial Thromboplastin Ratio 5.8 3.7 3.4 2.7 Troponin I 0.083 0.045 0-0.045 ng/ml White Blood Count 4.96 4.8-10.8 K/uL Red Blood Count 3.86 4.7-6.1 M/uL Hemoglobin 12.0 14.0-18.0 g/dL Hematocrit 33.9 42-52 % Mean Corpuscular Volume 87.8 80-100 fL Mean Corpuscular Hemoglobin 31.1 25-34 pg Mean Corpuscular Hemoglobin Concent 35.4 32-36 g/dl Platelet Count 57 130-400 K/uL Mean Platelet Volume 12.4 7.4-10.4 fL RDW Standard Deviation 46.5 36.4-46.3 fL RDW Coefficient of Variation 14.4 11.5-14.5 % Neutrophils % (Manual) 39.1 % Lymphocytes % (Manual) 18.2 % Variant Lymphocytes % (manual) 37.3 % Monocytes % (Manual) 2.7 % Eosinophils % (Manual) 2.7 % Neutrophils # (Manual) 1.94 1.4-6.5 K/uL Total Absolute Neutrophils 1.94 1.4-6.5 K/uL Lymphocytes # (Manual) 0.90 1.2-3.4 K/uL Absolute Variant Lymphocytes 1.85 K/uL Total Absolute Lymphocytes 2.75 1.2-3.4 K/uL Monocytes # (Manual) 0.13 0.11-0.59 K/uL Eosinophils # (Manual) 0.13 0-0.5 K/uL Toxic Vacuolation 1+ Large Platelets 2+ Echinocytes 1+ Sodium Level 139 136-145 mmol/L Potassium Level 4.3 3.5-5.1 mmol/L Chloride Level 106 98-107 mmol/L Carbon Dioxide Level 24 21-32 mmol/L Anion Gap 9.0 3-11 mmol/L Blood Urea Nitrogen 41 7-18 mg/dl Creatinine 1.80 0.60-1.40 mg/dl Est Creatinine Clear Calc Drug Dose 33.7 ml/min Estimated GFR () 38.9 Estimated GFR (Non- 33.6 BUN/Creatinine Ratio 22.7 10-20 Random Glucose 100 70-99 mg/dl Calcium Level 7.3 8.5-10.1 mg/dl Magnesium Level 2.4 1.8-2.4 mg/dl Test 06/06/16 11:20 Range/Units
--- NOTE | 2016-06-06 12:41 | Cardiology Follow-Up ---
Subjective General Date of Service: Jun 06, 2016. Chief Complaint: afib; UTI Pt evaluation today including: conversation w/ patient, physical exam, chart review, lab review, review of studies, review of inpatient medication list History of Present Illness Patient resting comfortably in bed. Offers no complaints. Full ROS unreliable. Family at bedside. Allergies Coded Allergies: No Known Allergies (Verified , 06/02/16) Social History Smoking Status: Former Smoker (quit in 1970s, prior 1 ppd several years) Hx Tobacco Use In Past Year?: No Hx Alcohol Use - Type And Amou: Yes (wine mostly, a glass a day) Hx Substance Use - Type And Am: No Problem List Medical Problems: (1) Fever Status: Acute (2) Hypoxemia Status: Acute (3) UTI (urinary tract infection) Status: Acute Review of Systems Respiratory: + see HPI Cardiac: + see HPI Physical Exam Vital Signs Last Vital Signs Documentation Date Time Temp Pulse Resp B/P Pulse Ox O2 Delivery O2 Flow Rate FiO2 06/06/16 12:12 97 Nasal Cannula 1.0 06/06/16 11:25 36.3 83 16 112/74 Physical Exam Constitutional: General Apperance: well-developed Level of Distress: NAD Psychiatric: Mental Status: normal mood, lethargic Eyes: Pupils: PERRLA Neck: supple Lungs: Auscultation: breath sounds normal, no wheezing, no rales/crackles, no rhonchi Cardiovascular: Heart Auscultation: II/ TASIA, irregular rate rhythm Extremities: no edema Assessment and Plan Assessment and Plan IMPRESSION: 1. New onset of atrial fibrillation with rapid ventricular response. -rates improved with addition of amiodarone -continue heparin for now -if patient does not convert with IV/oral amiodarone, plan for DCCV -Patient is not a intermediate accountant anticoagulation candidate. -NPO after midnight on 06/07 2. Urinary tract infection. -continue antibiotics per hospitalist 3. Thrombocytopenia -testing for HIT -monitor 4. Ambulatory dysfunction. 5. Status post aortic valve replacement. -stable echo findings. -* Small, underfilled LV chamber with mild concentric LVH. * Hyperdynamic LV systolic function, EF >70%. * No segmental left ventricular wall motion abnormalities are noted. * There is a bioprosthetic aortic valve. * The gradient is normal for this prosthetic aortic valve. * Doppler evidence of regurgitation is probably normal for this prosthetic aortic valve. * There is moderate mitral annular calcification. * The mitral valve leaflets appear thickened, but open well. * There is no mitral regurgitation noted. * There is no mitral valve stenosis. * Mild left atrial enlargement. Case discussed with Dr. Roberto. Will follow. Laboratory Results Last 24 Hours Test 06/05/16 14:08 06/05/16 20:57 06/06/16 04:05 06/06/16 11:20 Activated Partial Thromboplast Time 97.0 SECONDS 88.1 SECONDS 70.0 SECONDS Partial Thromboplastin Ratio 3.7 3.4 2.7 Troponin I 0.083 ng/ml 0.045 ng/ml White Blood Count 4.96 K/uL Red Blood Count 3.86 M/uL Hemoglobin 12.0 g/dL Hematocrit 33.9 % Mean Corpuscular Volume 87.8 fL Mean Corpuscular Hemoglobin 31.1 pg Mean Corpuscular Hemoglobin Concent 35.4 g/dl Platelet Count 57 K/uL Mean Platelet Volume 12.4 fL RDW Standard Deviation 46.5 fL RDW Coefficient of Variation 14.4 % Neutrophils % (Manual) 39.1 % Lymphocytes % (Manual) 18.2 % Variant Lymphocytes % (manual) 37.3 % Monocytes % (Manual) 2.7 % Eosinophils % (Manual) 2.7 % Neutrophils # (Manual) 1.94 K/uL Total Absolute Neutrophils 1.94 K/uL Lymphocytes # (Manual) 0.90 K/uL Absolute Variant Lymphocytes 1.85 K/uL Total Absolute Lymphocytes 2.75 K/uL Monocytes # (Manual) 0.13 K/uL Eosinophils # (Manual) 0.13 K/uL Toxic Vacuolation 1+ Large Platelets 2+ Echinocytes 1+ Sodium Level 139 mmol/L Potassium Level 4.3 mmol/L Chloride Level 106 mmol/L Carbon Dioxide Level 24 mmol/L Anion Gap 9.0 mmol/L Blood Urea Nitrogen 41 mg/dl Creatinine 1.80 mg/dl Est Creatinine Clear Calc Drug Dose 33.7 ml/min Estimated GFR () 38.9 Estimated GFR (Non- 33.6 BUN/Creatinine Ratio 22.7 Random Glucose 100 mg/dl Calcium Level 7.3 mg/dl Magnesium Level 2.4 mg/dl Test 06/06/16 12:27
[2016-06-06 13:01] LABS: PARTIAL THROMBOPLASTIN RATIO 1.7
[2016-06-06] MEDS ORDERED: HEPARIN IV BOLUS 3,000 UNIT in SYRINGE 0 ML IV ONE (14:15)
[2016-06-06] MEDS: IPRATROPIUM BROMIDE HFA INHALER INH SCH ×2 (14:25→20:47)
[2016-06-06 15:11] LABS: URINE APPEARANCE CLEAR (CLEAR); URINE BILIRUBIN NEG (NEG); URINE COLOR YELLOW; URINE EPITHELIAL CELL AUTO >30 /lpf (0-5); URINE NITRITE NEG (NEG); URINE SPECIFIC GRAVITY 1.009 (1.000-1.030); UROBILINOGEN NEG (NEG); ZZURINE CULT IF INDIC CATH YES
[2016-06-06 15:31] LABS: MANUAL MICROSCOPIC REQUIRED? NO; REVIEW REQ? YES
[2016-06-06 17:02] LABS: HEMATOCRIT 35.2 % (42-52); MEAN CELL VOLUME 88.4 fL (80-100); MEAN CORPUSCULAR HEMOGLOBIN 31.2 pg (25-34); MEAN CORPUSCULAR HGB CONC 35.2 g/dl (32-36); MEAN PLATELET VOLUME 12.4 fL (7.4-10.4); PLATELET COUNT 64 K/uL (130-400); RED BLOOD COUNT 3.98 M/uL (4.7-6.1)
[2016-06-06 19:58] LABS: PARTIAL THROMBOPLASTIN RATIO 2.6
[2016-06-06] MEDS: DOXAZosin MESYLATE TAB 4 MG TAB PO SCH (20:46)
[2016-06-06] MEDS: ASPIRIN 81 MG ECTAB PO SCH (20:46)
[2016-06-06] MEDS ORDERED: NURSING VERBAL MED ORDER ONE (21:30)
[2016-06-07] VITALS (11 sets, daily range): BP systolic 114–159; BP diastolic 64–84; PULSE 68–88; TEMP 36.5–36.7; O2SAT 94–97
[2016-06-07] MEDS: HEPARIN 25,000 UNIT/500ML D5W 500 ML IV PRN (02:49)
[2016-06-07 05:41] LABS: HEMATOCRIT 32.6 % (42-52); MEAN CELL VOLUME 87.4 fL (80-100); MEAN CORPUSCULAR HEMOGLOBIN 31.1 pg (25-34); MEAN CORPUSCULAR HGB CONC 35.6 g/dl (32-36); RED BLOOD COUNT 3.73 M/uL (4.7-6.1); WHITE BLOOD COUNT 7.78 K/uL (4.8-10.8)
[2016-06-07 05:42] LABS: MEAN PLATELET VOLUME 11.9 fL (7.4-10.4); PLATELET COUNT 69 K/uL (130-400)
[2016-06-07] MEDS: AMIODARONE / D5W 200 ML IV SCH (05:59)
[2016-06-07 06:14] LABS: CALCIUM 7.4 mg/dl (8.5-10.1); CREATININE 1.4 mg/dl (0.60-1.40); POTASSIUM 3.9 mmol/L (3.5-5.1)
[2016-06-07 06:17] LABS: ALB/GLOB RATIO 0.8 (0.9-2)
[2016-06-07] MEDS: IPRATROPIUM BROMIDE HFA INHALER INH SCH ×3 (07:04→20:30)
[2016-06-07] MEDS: METOPROLOL SUCC 50MG EXT REL TAB PO SCH (07:05)
[2016-06-07] MEDS: LISINOPRIL 20 MG TAB PO SCH (07:06)
[2016-06-07] MEDS: CARBIDOPA/LEVODOPA 25/100MG TAB PO SCH ×3 (07:06→20:31)
[2016-06-07] MEDS: ROSUVASTATIN CALCIUM 10 MG TAB PO SCH (07:07)
[2016-06-07] MEDS: PANTOprazole SOD 40 MG TAB PO SCH (07:07)
[2016-06-07] MEDS: CIPROFLOXACIN 500 MG TAB PO SCH ×2 (07:08→20:31)
[2016-06-07] MEDS: DUTASTERIDE 0.5 MG PO SCH (07:08)
--- NOTE | 2016-06-07 07:14 | DIAGNOSTIC IMAGING REPORT ---
CHEST ONE VIEW PORTABLE CLINICAL HISTORY: wheezing dyspnea COMPARISON STUDY: 06/02/2016 FINDINGS: Mild cardiomegaly. Prior median sternotomy. Lungs remain clear. Diaphragms smooth. IMPRESSION: Mild stable cardiomegaly. Lungs remain clear. Electronically signed by: Tomas Santos M.D. 06/07/2016 7:13 AM Dictated Date/Time: 06/07/2016 7:12 AM
[2016-06-07 07:52] LABS: COMPLETE YES
[2016-06-07 07:54] LABS: ECHINOCYTES 1+; LARGE PLATELETS 1+; SMUDGE CELLS PRESENT
--- NOTE | 2016-06-07 08:57 | Progress Note ---
Internal Med Progress Note Date of Service: Jun 07, 2016. Provider Documentation: SUBJECTIVE: Patient is seen and examined at bedside. Feels well. Denies any chest pain, SOB , palpitations. Planned for cardioversion today. Offers no complaints. OBJECTIVE: Vital Signs-as noted below Physical Exam: Vitals signs as noted above General Appearance:Moderately built and nourished, no apparent distress Head: normocephalic, Atraumatic Eyes: normal inspection, EOMI, PERRLA Neck: supple, no JVD, Trachea midline Respiratory/Chest: Normal breath sounds, CTA Cardiovascular: Irregularly, irregular, No murmur Abdomen/GI:Soft, Non tender, Bowel sounds present Extremities/Musculoskelatal:normal inspection, no edema Neurologic/Psych:AAOX3, grossly no focal neurological deficits Skin: normal color, warm Lab data as noted below. ASSESSMENT & PLAN: New Onset AFib with RVR: On IV Heparin Continue metoprolol, amiodarone May need cardioversion Appreciate cardiology help ECHO as below Patient is not a half-way anticoagulation candidate. UTI: H/O recurrent episodes of UTI Urine culture: Klebsiella Continue Cipro Day # 4. S/P Rocephin for 3 days Plan for total 14 days therapy D dimer elevated: ruled out for PE/ DVT CTA and Doppler of B/L Lower extremities: Negative Elevated Troponin: Likely demand ischemia from Afib Troponin trended down ( 0.106--> 0.118 --> 0.106) Continue monitor on Heparin Thrombocytopenia: Likely secondary to heparin Continue to monitor HIT screen negative Altered Mental Status: Likely metabolic encephalopathy from UTI Back to baseline as per Generalized Weakness: Likely due to UTI. Improving now. PT/OT Hypokalemia: Resolved. Continue to monitor VERONIKA On CKD Stage III: Cr levels better: 1.4 Monitor renal function Avoid nephrotoxins Continue lisinopril for now Status post aortic valve replacement stable echo findings. H/O HTN: BP has been fluctuating. Continue current meds Parkinson's Disease: Stable Continue Sinemet History Mild Non-obstructive CAD: Stable.No acute cardiac symptoms. Continue aspirin, BB, KRIS-I, statin History BPH: Continue Avodart and Cardura GERD :Continue PPI Code Status: Full code DVT Prophylaxis: On IV Heparin Disposition: Lives at home with . PT, OT, social service consulted PCP is Dr. Candido Mcconnell PROCEDURE: ECHO: Small, underfilled LV chamber with mild concentric LVH. Hyperdynamic LV systolic function, EF >70%. No segmental left ventricular wall motion abnormalities are noted. There is a bioprosthetic aortic valve. The gradient is normal for this prosthetic aortic valve. Doppler evidence of regurgitation is probably normal for this prosthetic aortic valve. There is moderate mitral annular calcification. The mitral valve leaflets appear thickened, but open well.There is no mitral regurgitation noted. There is no mitral valve stenosis. Mild left atrial enlargement. Vital Signs: Date Time Temp Pulse Resp B/P Pulse Ox O2 Delivery O2 Flow Rate FiO2 06/07/16 08:09 36.6 88 18 126/79 95 Room Air 06/07/16 08:08 95 Room Air 06/07/16 04:00 94 Room Air 06/07/16 03:48 36.7 84 20 127/64 94 Room Air 06/07/16 02:44 36.7 88 20 114/79 94 Room Air 06/06/16 23:59 94 Room Air 06/06/16 23:42 36.7 88 20 114/79 94 Room Air 06/06/16 20:00 94 Room Air 06/06/16 19:31 36.3 77 18 123/76 94 Room Air 06/06/16 15:23 36.4 78 16 120/76 96 2.0 06/06/16 15:14 96 Nasal Cannula 1.0 06/06/16 12:12 97 Nasal Cannula 1.0 06/06/16 11:25 36.3 83 16 112/74 97 2.0 Lab Results: Results Past 24 Hours Test 06/06/16 11:20 06/06/16 14:35 06/06/16 16:40 06/06/16 19:25 Range/Units Heparin-PF4 Antibody Screen NEG NEG Urine Color YELLOW Urine Appearance CLEAR CLEAR Urine pH 5.0 4.5-7.5 Urine Specific [place] 1.009 1.000-1.030 Urine Protein NEG NEG Urine Glucose (UA) NEG NEG Urine Ketones NEG NEG Urine Occult Blood NEG NEG Urine Nitrite NEG NEG Urine Bilirubin NEG NEG Urine Urobilinogen NEG NEG Urine Leukocyte Esterase NEG NEG Urine WBC (Auto) 1-5 0-5 /hpf Urine RBC (Auto) 0-4 0-4 /hpf Urine Hyaline Casts (Auto) 5-10 0-5 /lpf Urine Epithelial Cells (Auto) >30 0-5 /lpf Urine Bacteria (Auto) NEG NEG Urine Yeast (Auto) NONE PRSENT White Blood Count 6.20 4.8-10.8 K/uL Red Blood Count 3.98 4.7-6.1 M/uL Hemoglobin 12.4 14.0-18.0 g/dL Hematocrit 35.2 42-52 % Mean Corpuscular Volume 88.4 80-100 fL Mean Corpuscular Hemoglobin 31.2 25-34 pg Mean Corpuscular Hemoglobin Concent 35.2 32-36 g/dl RDW Standard Deviation 47.4 36.4-46.3 fL RDW Coefficient of Variation 14.6 11.5-14.5 % Platelet Count 64 130-400 K/uL Mean Platelet Volume 12.4 7.4-10.4 fL Activated Partial Thromboplast Time 66.7 21.0-31.0 SECONDS Partial Thromboplastin Ratio 2.6 Test 06/07/16 05:18 Range/Units White Blood Count 7.78 4.8-10.8 K/uL Red Blood Count 3.73 4.7-6.1 M/uL Hemoglobin 11.6 14.0-18.0 g/dL Hematocrit 32.6 42-52 % Mean Corpuscular Volume 87.4 80-100 fL Mean Corpuscular Hemoglobin 31.1 25-34 pg Mean Corpuscular Hemoglobin Concent 35.6 32-36 g/dl Platelet Count 69 130-400 K/uL Mean Platelet Volume 11.9 7.4-10.4 fL Neutrophils (%) (Auto) 30.2 % Lymphocytes (%) (Auto) 57.2 % Monocytes (%) (Auto) 8.4 % Eosinophils (%) (Auto) 1.2 % Basophils (%) (Auto) 2.6 % Neutrophils # (Auto) 2.36 1.4-6.5 K/uL Lymphocytes # (Auto) 4.45 1.2-3.4 K/uL Monocytes # (Auto) 0.65 0.11-0.59 K/uL Eosinophils # (Auto) 0.09 0-0.5 K/uL Basophils # (Auto) 0.20 0-0.2 K/uL RDW Standard Deviation 47.1 36.4-46.3 fL RDW Coefficient of Variation 14.5 11.5-14.5 % Immature Granulocyte % (Auto) 0.4 % Immature Granulocyte # (Auto) 0.03 0.00-0.02 K/uL Smudge Cells PRESENT Large Platelets 1+ Echinocytes 1+ Activated Partial Thromboplast Time 52.6 21.0-31.0 SECONDS Partial Thromboplastin Ratio 2.0 Sodium Level 140 136-145 mmol/L Potassium Level 3.9 3.5-5.1 mmol/L Chloride Level 109 98-107 mmol/L Carbon Dioxide Level 24 21-32 mmol/L Anion Gap 7.0 3-11 mmol/L Blood Urea Nitrogen 39 7-18 mg/dl Creatinine 1.40 0.60-1.40 mg/dl Est Creatinine Clear Calc Drug Dose 44.6 ml/min Estimated GFR () 52.7 Estimated GFR (Non- 45.5 BUN/Creatinine Ratio 28.0 10-20 Random Glucose 93 70-99 mg/dl Calcium Level 7.4 8.5-10.1 mg/dl Total Bilirubin 0.4 0.2-1 mg/dl Aspartate Amino Transf (AST/SGOT) 98 15-37 U/L Alanine Aminotransferase (ALT/SGPT) 19 12-78 U/L Alkaline Phosphatase 209 45-117 U/L Total Protein 5.1 6.4-8.2 gm/dl Albumin 2.3 3.4-5.0 gm/dl Globulin 2.8 2.5-4.0 gm/dl Albumin/Globulin Ratio 0.8 0.9-2 Microbiology Results 06/06/16 Urine Culture, Received Pending
[2016-06-07] MEDS: METRONIDAZOLE 0.75% TOPICAL GEL 45 GM TUBE TOP SCH (09:00)
--- NOTE | 2016-06-07 10:21 | Cardiology Follow-Up ---
Subjective Subjective Date of Service: Jun 07, 2016. Pt evaluation today including: conversation w/ patient, conversation w/ family , physical exam, chart review, lab review, review of studies, review of inpatient medication list Additional Details: Pt seen and examined, less confused today. Answering questions appropriately, denies complaint. Had a long discussion with son, by phone, in regards to treatment options. Tele reviewed: atrial fibrillation with variable rate control Problem List Medical Problems: (1) Fever Status: Acute (2) Hypoxemia Status: Acute (3) UTI (urinary tract infection) Status: Acute Review of Systems Respiratory: No cough, No dyspnea at rest, No dyspnea on exertion, No hemoptysis, No problem reported, No see HPI, No shortness of breath, No sputum, No wheezing Cardiac: No PND, No chest pain, No claudication, No edema, No orthopnea, No palpitations, No problem reported, No see HPI Objective Vital Signs Last Vital Signs Documentation Date Time Temp Pulse Resp B/P Pulse Ox O2 Delivery O2 Flow Rate FiO2 06/07/16 08:09 36.6 88 18 126/79 95 Room Air 06/06/16 15:23 2.0 Physical Exam: General Appearance: WD/WN, no apparent distress Eyes: bilateral eyes EOMI, bilateral eyes PERRL, bilateral eyes normal inspection ENT: normal ENT inspection, hearing grossly normal, pharynx normal, + pertinent finding (hard of hearing) Neck: supple, no adenopathy, thyroid normal, no JVD, no carotid bruits, trachea midline Respiratory/Chest: chest non-tender, lungs clear, normal breath sounds, no respiratory distress Cardiovascular: no edema, no JVD, + tachycardia, + irregularly irregular Abdomen: normal bowel sounds, non tender, soft, no organomegaly Extremities: normal inspection, no pedal edema, no calf tenderness 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 New onset of atrial fibrillation with rapid ventricular response. rates improved yet has remained in afib heparin continued, platelet count improving patient is not a intermediate designer anticoagulation candidate spoke with son, a physician, at great length today discussed rate vs. rhythm control, benefits and risks agrees that patient is not a intermediate designer anticoagulation candidate will discuss options with family and let us know their decision did eat some breakfast this am so will restart diet npo after midnight for possible d/c in AM will change amio to po now, 400mg bid pending decision 2. Urinary tract infection. -continue antibiotics per hospitalist 3. Thrombocytopenia HIT antibody negative 4. Ambulatory dysfunction. 5. Status post aortic valve replacement. -stable echo findings.
[2016-06-07] MEDS ORDERED: AMIODARONE 200 MG TAB PO ONE ×2 (10:45→11:00)
[2016-06-07] MEDS: AMIODARONE 200 MG TAB PO SCH (20:31)
[2016-06-07] MEDS: ASPIRIN 81 MG ECTAB PO SCH (20:31)
[2016-06-07] MEDS: DOXAZosin MESYLATE TAB 4 MG TAB PO SCH (20:31)
[2016-06-08] VITALS (12 sets, daily range): BP systolic 109–168; BP diastolic 70–86; PULSE 66–91; TEMP 36.4–36.6; O2SAT 92–97
[2016-06-08 05:51] LABS: PARTIAL THROMBOPLASTIN RATIO 1.6
[2016-06-08 06:06] LABS: BUN/CREATININE RATIO 21.3 (10-20); CALCIUM 7.5 mg/dl (8.5-10.1); CREATININE 1.5 mg/dl (0.60-1.40)
[2016-06-08] MEDS: HEPARIN 25,000 UNIT/500ML D5W 500 ML IV PRN (06:13)
[2016-06-08] MEDS ORDERED: HEPARIN IV BOLUS 3,000 UNIT in SYRINGE 0 ML IV ONE (06:15)
[2016-06-08 06:36] LABS: MEAN CELL VOLUME 87.1 fL (80-100); MEAN CORPUSCULAR HEMOGLOBIN 31.1 pg (25-34); MEAN CORPUSCULAR HGB CONC 35.8 g/dl (32-36); MEAN PLATELET VOLUME 11.2 fL (7.4-10.4); PLATELET COUNT 117 K/uL (130-400); RED BLOOD COUNT 3.79 M/uL (4.7-6.1); WHITE BLOOD COUNT 11.12 K/uL (4.8-10.8)
[2016-06-08] MEDS: CIPROFLOXACIN 500 MG TAB PO SCH ×2 (08:11→21:40)
[2016-06-08] MEDS: CARBIDOPA/LEVODOPA 25/100MG TAB PO SCH ×3 (08:11→21:43)
[2016-06-08] MEDS: LISINOPRIL 20 MG TAB PO SCH (08:12)
[2016-06-08] MEDS: PANTOprazole SOD 40 MG TAB PO SCH (08:12)
[2016-06-08] MEDS: METOPROLOL SUCC 50MG EXT REL TAB PO SCH (08:12)
[2016-06-08] MEDS: ROSUVASTATIN CALCIUM 10 MG TAB PO SCH (08:12)
[2016-06-08] MEDS: AMIODARONE 200 MG TAB PO SCH ×2 (08:13→21:41)
[2016-06-08] MEDS: IPRATROPIUM BROMIDE HFA INHALER INH SCH ×3 (08:14→21:39)
[2016-06-08] MEDS: DUTASTERIDE 0.5 MG PO SCH (08:14)
[2016-06-08] MEDS: METRONIDAZOLE 0.75% TOPICAL GEL 45 GM TUBE TOP SCH (08:15)
[2016-06-08] MEDS ORDERED: FENTANYL CITRATE INJ 50 MCG/1 ML 2 ML VIAL ONE (09:18)
[2016-06-08] MEDS ORDERED: MIDAZOLAM HCL 1 MG/ML 2ML VIAL ONE (09:22)
--- NOTE | 2016-06-08 09:24 | Progress Note ---
Internal Med Progress Note Date of Service: Jun 08, 2016. Provider Documentation: SUBJECTIVE: Patient is seen and examined at bedside. Patient states he is doing well. Denies any chest pain, SOB, palpitations. Offers no complaints. S/P cardioversion today. OBJECTIVE: Vital Signs-as noted below Physical Exam: Vitals signs as noted above General Appearance:Moderately built and nourished, no apparent distress Head: normocephalic, Atraumatic Eyes: normal inspection, EOMI, PERRLA Neck: supple, no JVD, Trachea midline Respiratory/Chest: Normal breath sounds, CTA Cardiovascular: Irregularly, irregular, No murmur Abdomen/GI:Soft, Non tender, Bowel sounds present Extremities/Musculoskelatal:normal inspection, no edema Neurologic/Psych:AAOX3, grossly no focal neurological deficits Skin: normal color, warm Lab data as noted below. ASSESSMENT & PLAN: New Onset AFib with RVR: S/P cardioversion, currently in sinus S/P IV Heparin Continue metoprolol PO amiodarone: Per cardiology patient's son preference to be discontinued on amiodarone Appreciate cardiology help ECHO as below Patient is not a buttermaker continuous churn anticoagulation candidate. UTI: H/O recurrent episodes of UTI Urine culture: Klebsiella Continue Cipro Day # 5. S/P Rocephin for 3 days Plan for total 14 days therapy Mild leukocytosis, afebrile D dimer elevated: ruled out for PE/ DVT CTA and Doppler of B/L Lower extremities: Negative Elevated Troponin: Likely demand ischemia from Afib Troponin trended down ( 0.106--> 0.118 --> 0.106) Continue monitor on IV Heparin Thrombocytopenia: Likely secondary to heparin Improving Continue to monitor HIT screen negative Altered Mental Status: Likely metabolic encephalopathy from UTI Back to baseline as per Generalized Weakness: Likely due to UTI. Improving now. PT/OT Hypokalemia: Resolved. Continue to monitor VERONIKA On CKD Stage III: Cr levels better: 1.5 today Monitor renal function Avoid nephrotoxins Status post aortic valve replacement stable echo findings. H/O HTN: BP has been fluctuating. Continue current meds Parkinson's Disease: Stable Continue Sinemet History Mild Non-obstructive CAD: Stable.No acute cardiac symptoms. Continue aspirin, BB, KRIS-I, statin History BPH: Continue Avodart and Cardura GERD :Continue PPI Code Status: Full code DVT Prophylaxis: On IV Heparin Disposition: Plan to discharge home with Home Health, Home PT Follow up with Dr. Candido Mcconnell on 06/15/16 at 11:00AM Follow up with cardiology on 06/24/16 at 3:45pm PROCEDURE: ECHO: Small, underfilled LV chamber with mild concentric LVH. Hyperdynamic LV systolic function, EF >70%. No segmental left ventricular wall motion abnormalities are noted. There is a bioprosthetic aortic valve. The gradient is normal for this prosthetic aortic valve. Doppler evidence of regurgitation is probably normal for this prosthetic aortic valve. There is moderate mitral annular calcification. The mitral valve leaflets appear thickened, but open well.There is no mitral regurgitation noted. There is no mitral valve stenosis. Mild left atrial enlargement. Vital Signs: Date Time Temp Pulse Resp B/P Pulse Ox O2 Delivery O2 Flow Rate FiO2 06/08/16 15:06 36.5 71 18 128/73 96 Room Air 06/08/16 12:39 Room Air 06/08/16 12:00 Room Air 06/08/16 10:20 66 16 119/76 93 Room Air 06/08/16 09:43 68 18 109/71 94 Room Air 06/08/16 09:38 66 117/72 95 Room Air 06/08/16 09:33 66 16 133/75 96 06/08/16 09:26 87 120/70 95 Room Air 06/08/16 09:20 91 127/73 92 Room Air 06/08/16 09:18 68 129/74 92 Room Air 06/08/16 08:00 Room Air 06/08/16 07:37 36.6 88 18 168/70 95 Room Air 06/08/16 04:41 Room Air 06/08/16 04:10 36.6 74 20 134/86 95 Room Air 06/08/16 00:13 Room Air 06/07/16 23:56 36.7 68 20 131/84 95 Room Air 06/07/16 20:37 Room Air 06/07/16 18:55 36.5 87 20 159/83 96 Room Air Lab Results: Results Past 24 Hours Test 06/08/16 05:12 Range/Units White Blood Count 11.12 4.8-10.8 K/uL Red Blood Count 3.79 4.7-6.1 M/uL Hemoglobin 11.8 14.0-18.0 g/dL Hematocrit 33.0 42-52 % Mean Corpuscular Volume 87.1 80-100 fL Mean Corpuscular Hemoglobin 31.1 25-34 pg Mean Corpuscular Hemoglobin Concent 35.8 32-36 g/dl RDW Standard Deviation 46.7 36.4-46.3 fL RDW Coefficient of Variation 14.7 11.5-14.5 % Platelet Count 117 130-400 K/uL Mean Platelet Volume 11.2 7.4-10.4 fL Activated Partial Thromboplast Time 41.8 21.0-31.0 SECONDS Partial Thromboplastin Ratio 1.6 Sodium Level 142 136-145 mmol/L Potassium Level 4.0 3.5-5.1 mmol/L Chloride Level 109 98-107 mmol/L Carbon Dioxide Level 21 21-32 mmol/L Anion Gap 12.0 3-11 mmol/L Blood Urea Nitrogen 32 7-18 mg/dl Creatinine 1.50 0.60-1.40 mg/dl Est Creatinine Clear Calc Drug Dose 41.6 ml/min Estimated GFR () 48.5 Estimated GFR (Non- 41.9 BUN/Creatinine Ratio 21.3 10-20 Random Glucose 93 70-99 mg/dl Calcium Level 7.5 8.5-10.1 mg/dl
--- NOTE | 2016-06-08 10:27 | Procedure Note ---
Pre-Mod Sedation Assessment General Date of Moderate Sedation: Jun 08, 2016. Vital Signs: Vital Signs Past 12 Hours Date Time Temp Pulse Resp B/P Pulse Ox O2 Delivery O2 Flow Rate FiO2 06/08/16 08:00 Room Air 06/08/16 07:37 36.6 88 18 168/70 95 Room Air 06/08/16 04:41 Room Air 06/08/16 04:10 36.6 74 20 134/86 95 Room Air 06/08/16 00:13 Room Air 06/07/16 23:56 36.7 68 20 131/84 95 Room Air Review Cardiovascular: no edema, no gallop, no JVD, no murmur, normal peripheral pulses, + irregularly irregular Abdomen: normal bowel sounds, non tender, soft, no organomegaly, no pulsatile mass Lungs: chest non-tender, lungs clear, normal breath sounds, no respiratory distress, no accessory muscle use Airway Class: II Pre-Sedation Airway Assessment Oral Cavity: Dentures Short Thick Neck: No Hx of Sleep Apnea: No Smoking Status: Former Smoker Notes The planned sedation has been discussed with the patient and consent obtained. I have identified the patient, determined the appropriateness of sedation and have assessed the patient immediately prior to the procedure. All medicine(s) and interventions are by my order.
--- NOTE | 2016-06-08 10:33 | Procedure Note ---
Post-Mod Sedation Assessment General Date of Moderate Sedation Jun 08, 2016. Vital Signs: Vital Signs Past 12 Hours Date Time Temp Pulse Resp B/P Pulse Ox O2 Delivery O2 Flow Rate FiO2 06/08/16 08:00 Room Air 06/08/16 07:37 36.6 88 18 168/70 95 Room Air 06/08/16 04:41 Room Air 06/08/16 04:10 36.6 74 20 134/86 95 Room Air 06/08/16 00:13 Room Air 06/07/16 23:56 36.7 68 20 131/84 95 Room Air Review - Discharge Criteria Vital Signs Stable: Yes Alert/Oriented/Conversant: Yes Returned to Baseline Mental St: Yes Nausea Absent/Minimal: Yes Pain/Discomfort/Absent/Minimal: Yes Normal/Baseline Respirations: Yes Active Bleeding?: No Pt Received D/C Instructions: No Prescriptions Given: None
--- NOTE | 2016-06-08 10:36 | [facility] Post Operative Brief Note ---
Immediate Operative Summary Operative Date Jun 08, 2016. Pre-Operative Diagnosis paf Post-Operative Diagnosis same Procedure(s) Performed DC cardioversion Surgeon Pardeep Hand Stonecutter Surgeon(s) none Estimated Blood Loss none Findings successful cardioversion to sinus rhythm Specimens none Complication(s) None Disposition 232
--- NOTE | 2016-06-08 10:40 | Procedure Note ---
Procedure Note Date of Service Jun 08, 2016. Procedure Note Informed consent obtained, from sonTal Pt prepped adequate moderate sedation achieved with a total of 2mg of Versed and 25mg of Fentanyl 200J of DC energy delivered unsuccessful additional 25mg of Fentanyl given another 200J of DC biphasic energy delivered, successful cardioversion to sinus rhythm tolerated well EKG to confirm Recover per protocol in room
--- NOTE | 2016-06-08 10:46 | Cardiology Follow-Up ---
Subjective Subjective Date of Service: Jun 08, 2016. Pt evaluation today including: conversation w/ patient, conversation w/ family , physical exam, chart review, lab review, review of studies, review of inpatient medication list Additional Details: Pt seen and examined, states that he feels well, anxious to go home. Denies cp, sob, palpitations, lightheadedness or dizziness. Tele reviewed: atrial fibrillation overnight, successful cardioversion to sinus. Problem List Medical Problems: (1) Fever Status: Acute (2) Hypoxemia Status: Acute (3) UTI (urinary tract infection) Status: Acute Review of Systems Respiratory: No cough, No dyspnea at rest, No dyspnea on exertion, No hemoptysis, No problem reported, No see HPI, No shortness of breath, No sputum, No wheezing Cardiac: No PND, No chest pain, No claudication, No edema, No orthopnea, No palpitations, No problem reported, No see HPI Objective Vital Signs Last Vital Signs Documentation Date Time Temp Pulse Resp B/P Pulse Ox O2 Delivery O2 Flow Rate FiO2 06/08/16 08:00 Room Air 06/08/16 07:37 36.6 88 18 168/70 95 06/06/16 15:23 2.0 Physical Exam: General Appearance: WD/WN, no apparent distress Eyes: bilateral eyes EOMI, bilateral eyes PERRL, bilateral eyes normal inspection ENT: normal ENT inspection, hearing grossly normal, pharynx normal, + pertinent finding (hard of hearing) Neck: supple, no adenopathy, thyroid normal, no JVD, no carotid bruits, trachea midline Respiratory/Chest: chest non-tender, lungs clear, normal breath sounds, no respiratory distress Cardiovascular: no edema, no JVD, + tachycardia, + irregularly irregular Abdomen: normal bowel sounds, non tender, soft, no organomegaly Extremities: normal inspection, no pedal edema, no calf tenderness 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 New onset of atrial fibrillation with rapid ventricular response. successful cardioversion to sinus patient's son would prefer he not be on amiodarone will d/c to home on metoprolol 25mg bid not a coumadin candidate 2. Urinary tract infection. -continue antibiotics per hospitalist 3. Thrombocytopenia HIT antibody negative 4. Ambulatory dysfunction. 5. Status post aortic valve replacement. -stable echo findings. ok to d/c to home this afternoon once fully recovered
[2016-06-08] MEDS ORDERED: NURSING VERBAL MED ORDER ONE ×2 (11:15→16:30)
[2016-06-08 11:28] LABS: BASO ABS # 0.08 K/uL (0-0.2); LYMPH ABS # 0.47 K/uL (1.2-3.4)
[2016-06-08] MEDS ORDERED: CPR500 PO (16:26)
[2016-06-08] MEDS ORDERED: LPR25 PO (16:26)
--- NOTE | 2016-06-08 16:31 | Discharge Summary ---
Discharge Summary Date of Service Jun 08, 2016. Discharge Summary Admission Date: Jun 02, 2016 at 14:10 Discharge Date: Jun 09, 2016 Discharge Disposition: Home with services Principal Diagnosis: New Onset AFib with RVR S/P successful cardioversion Procedures: Cardioversion CXR: No significant change compared to the prior study. No acute process. CTA: 1. Technically limited study secondary to respiratory motion artifact 2. No CT evidence of acute pulmonary embolism 3. No evidence of focal pulmonary consolidation Venous Doppler: No evidence of lower extremity DVT Consultations: Cardiology Pending Studies/Follow-Up: Follow up with Dr. Candido Mcconnell on 06/15/16 at 11:00AM Follow up with cardiology on 06/24/16 at 3:45pm Medication Reconciliation New Medications: Metoprolol Tartrate (Lopressor) 25 Mg Tab 25 MG PO BID for 30 Days, #60 TAB Ciprofloxacin (Ciprofloxacin HCl) 500 Mg Tab 500 MG PO BID for 6 Days, #12 TAB Continued Medications: Aspirin Enteric Coated (Ecotrin Or Generic *) 81 Mg Ectab 81 MG PO HS, 0 Refills B-Complex Vitamins (B Complex) 1 Cap Cap 1 CAP PO DAILY Carbidopa/Levodopa (Sinemet 25MG/100MG) Tab 2 TAB PO TID, TAB Celecoxib (Celebrex) 100 Mg Cap 200 MG PO DAILY PRN for Pain, CAP Doxazosin Mesylate (Cardura *) 4 Mg Tab 4 MG PO HS, 0 Refills Dutasteride (Avodart *) 0.5 Mg Cap 0.5 MG PO DAILY, 0 Refills Lisinopril (Zestril) 30 Mg Tab 30 MG PO DAILY, TAB Metronidazole (Topical) (Metrogel) 0.75 % Gel 1 APPLN TOP DAILY Multiple Vitamin (Multivitamins) 1 Cap Cap 1 CAP PO DAILY Omeprazole (Prilosec) 20 Mg Capcr 20 MG PO HS, 0 Refills Rosuvastatin Calcium (Crestor *) 10 Mg Tab 10 MG PO DAILY, 0 Refills Discontinued Medications: Metoprolol Succ (Toprol Xl) (Toprol-Xl ) 100 Mg Tabcr 100 MG PO DAILY, 0 Refills Admission Information HPI (per Admitting provider): This is an 85 year old male with PMH bioprosthetic AVR, mild CAD, HTN, HL, who presented to the ED with generalized weakness. Hx obtained from family due to patient's mental status. Pt is unaware of why he is in the hospital. His family brought him over due to generalized weakness starting yesterday. Patient was unable to stand up today and was more lethargic and confused than usual. states usually he is off on days of the week but knows the year. Earlier today he not tell the year. He is now oriented to person, place, and year. In the ER he was found to be febrile but family did not notice fever, chills, sweats at home. Pt denies chest pain or SOB. He admits to coughing "a little bit" but states he was not coughing at home and denies sputum production. He has had rhinorrhea. Pt was recently treated for suspected UTI with Bactrim after presenting to PCP with dysuria on 04/25/16. Urinary sx resolved and urine cx grew 04/25 grew multiple lupillo. Repeat urine cx 04/28 also grew mixed lupillo. states pt is now having frequency and incontinence. No dizziness, falls, PINEDA, sinus pain, sore throat, unusual body aches, abdominal pain, N/V/D, appetite loss, dysuria, leg pain, edema, rash, wounds. No recent travel, immobilization, surgery, hospitalizations, sick contacts. Pt was hypoxic to 86% on RA in the ER. No home oxygen use. Denies hx of lung disease or VTE. Denies recent change in meds or use of OTC meds. Physical Exam (per Admitting): General Appearance: + pertinent finding (elderly male, initially sleeping but awakens easily, cooperative, in good spirits, no distress) Eyes: normal inspection, PERRL, EOMI ENT: pharynx normal, + pertinent finding (severely hard of hearing. has hearing aids bilaterally. no sinus tenderness. dry mucuous membranes.) Neck: supple, no JVD, trachea midline Respiratory/Chest: lungs clear, normal breath sounds, no respiratory distress, no accessory muscle use, + pertinent finding (O2 sats high 90s on 2L NC, decreases to 92% on RA during exam) Cardiovascular: regular rate, rhythm, no murmur, normal peripheral pulses Abdomen/GI: normal bowel sounds, non tender, soft Extremities/Musculoskelatal: no calf tenderness, normal capillary refill, no pedal edema Neurologic/Psych: normal mood/affect, + pertinent finding (initially sleeping but awakens easily and cooperates with exam, oriented to person, place , year. unable to recall why he is in the hospital. no facial droop or dysarthria. ) Skin: normal color, warm/dry, + pertinent finding (ecchymosis on RUE) Hospital Course New Onset AFib with RVR: S/P cardioversion, currently in sinus S/P IV Heparin Continue metoprolol PO amiodarone: Per cardiology patient's son preference to be discontinued on amiodarone Appreciate cardiology help ECHO as below Patient is not a alf anticoagulation candidate. UTI: H/O recurrent episodes of UTI Urine culture: Klebsiella Continue Cipro Day # 5. S/P Rocephin for 3 days Plan for total 14 days therapy Mild leukocytosis, afebrile D dimer elevated: ruled out for PE/ DVT CTA and Doppler of B/L Lower extremities: Negative Elevated Troponin: Likely demand ischemia from Afib Troponin trended down ( 0.106--> 0.118 --> 0.106) Continue monitor on IV Heparin Thrombocytopenia: Likely secondary to heparin Improving Continue to monitor HIT screen negative Altered Mental Status: Likely metabolic encephalopathy from UTI Back to baseline as per Generalized Weakness: Likely due to UTI. Improving now. PT/OT Hypokalemia: Resolved. Continue to monitor VERONIKA On CKD Stage III: Cr levels better: 1.5 today Monitor renal function Avoid nephrotoxins Status post aortic valve replacement stable echo findings. H/O HTN: BP has been fluctuating. Continue current meds Parkinson's Disease: Stable Continue Sinemet History Mild Non-obstructive CAD: Stable.No acute cardiac symptoms. Continue aspirin, BB, KRIS-I, statin History BPH: Continue Avodart and Cardura GERD :Continue PPI Code Status: Full code DVT Prophylaxis: On IV Heparin Disposition: Plan to discharge home with Home Health, Home PT Follow up with Dr. Candido Mcconnell on 06/15/16 at 11:00AM Follow up with cardiology on 06/24/16 at 3:45pm PROCEDURE: ECHO: Small, underfilled LV chamber with mild concentric LVH. Hyperdynamic LV systolic function, EF >70%. No segmental left ventricular wall motion abnormalities are noted. There is a bioprosthetic aortic valve. The gradient is normal for this prosthetic aortic valve. Doppler evidence of regurgitation is probably normal for this prosthetic aortic valve. There is moderate mitral annular calcification. The mitral valve leaflets appear thickened, but open well.There is no mitral regurgitation noted. There is no mitral valve stenosis. Mild left atrial enlargement. Total time spent on discharge = 25 minutes This includes examination of the patient, discharge planning, medication reconciliation, and communication with other providers. Discharge Instructions Discharge Instructions Date of Service Jun 08, 2016. Admission Reason for Admission: Fever, Hypoxia Discharge Discharge Diagnosis / Problem: Afib with RVR S/P cardioversion, UTI Discharge Goals Goal(s): Decrease discomfort, Improve function Activity Recommendations Activity Limitations: resume your previous activity Exercise/Sports Limitations: as tolerated . Instructions / Follow-Up Instructions / Follow-Up Follow up with Dr. Candido Mcconnell on 06/15/16 at 11:00AM Follow up with cardiology on 06/24/16 at 3:45pm Get BMP (Blood Test) as outpatient on 06/13/16 and follow up with results with your doctor as advised Complete the antibiotic course as prescribed. Current Hospital Diet Patient's current hospital diet: AHA Diet (Heart Healthy) Discharge Diet Recommended Diet: AHA Diet (Heart Healthy) Procedures Procedures Performed: DC cardioversion Pending Studies Studies pending at discharge: no Medical Emergencies . Who to Call and When: Medical Emergencies: If at any time you feel your situation is an emergency, please call 911 immediately. . Non-Emergent Contact Non-Emergency issues call your: Primary Care Provider, Drilling Rig Operator Call Non-Emergent contact if: you have a fever, your pain is not controlled, your pain is worsening, your pain is unusual for you, you have any medication questions You develop chest pain, palpitations . . "Provider Documentation" section prepared by Mendoza Howard. VTE Core Measure Inpt VTE Proph given/why not?: Enoxaparin (Lovenox)SQ
[2016-06-08] MEDS: DOXAZosin MESYLATE TAB 4 MG TAB PO SCH (21:40)
[2016-06-08] MEDS: ASPIRIN 81 MG ECTAB PO SCH (21:42)
[2016-06-09] VITALS: BP 115/69; PULSE 78; TEMP 36.6; O2SAT 92
[2016-06-09 07:25] VITALS: BP 162/82; PULSE 70; TEMP 36.8; O2SAT 96
[2016-06-09 07:28] LABS: PARTIAL THROMBOPLASTIN RATIO 1.1
[2016-06-09] MEDS: IPRATROPIUM BROMIDE HFA INHALER INH SCH (07:37)
[2016-06-09] MEDS: DUTASTERIDE 0.5 MG PO SCH (07:39)
[2016-06-09] MEDS: CIPROFLOXACIN 500 MG TAB PO SCH (07:39)
[2016-06-09] MEDS: AMIODARONE 200 MG TAB PO SCH (07:40)
[2016-06-09] MEDS: PANTOprazole SOD 40 MG TAB PO SCH (07:41)
[2016-06-09] MEDS: ROSUVASTATIN CALCIUM 10 MG TAB PO SCH (07:41)
[2016-06-09] MEDS: CARBIDOPA/LEVODOPA 25/100MG TAB PO SCH (07:41)
[2016-06-09] MEDS: METOPROLOL SUCC 50MG EXT REL TAB PO SCH (07:43)
[2016-06-09] MEDS: LISINOPRIL 20 MG TAB PO SCH (07:43)
[2016-06-09 07:46] LABS: BUN/CREATININE RATIO 18.8 (10-20); CALCIUM 8.1 mg/dl (8.5-10.1); CREATININE 1.6 mg/dl (0.60-1.40); POTASSIUM 4.1 mmol/L (3.5-5.1)
[2016-06-09] MEDS: METRONIDAZOLE 0.75% TOPICAL GEL 45 GM TUBE TOP SCH (07:58)
--- NOTE | 2016-06-09 08:35 | Progress Note ---
Internal Med Progress Note Date of Service: Jun 09, 2016. Provider Documentation: SUBJECTIVE: Patient is seen and examined at bedside. Patient denies any complaints. Feels well and states he is ready to get discharged. Denies any chest pain, SOB, palpitations. Denies any blurry vision, eye pain. OBJECTIVE: Vital Signs-as noted below Physical Exam: Vitals signs as noted above General Appearance:Moderately built and nourished, no apparent distress Head: normocephalic, Atraumatic Eyes: R subconjunctival hemorrhage, EOMI, PERRLA Neck: supple, no JVD, Trachea midline Respiratory/Chest: Normal breath sounds, CTA Cardiovascular: NSR, No murmur Abdomen/GI:Soft, Non tender, Bowel sounds present Extremities/Musculoskelatal:normal inspection, no edema Neurologic/Psych:AAOX3, grossly no focal neurological deficits Skin: normal color, warm Lab data as noted below. ASSESSMENT & PLAN: New Onset AFib with RVR: S/P cardioversion, currently in sinus S/P IV Heparin Continue metoprolol PO amiodarone: Per cardiology patient's son preference to be discontinued on amiodarone Appreciate cardiology help ECHO as below Patient is not a nursing home anticoagulation candidate. UTI: H/O recurrent episodes of UTI Urine culture: Klebsiella Continue Cipro Day # 6. S/P Rocephin for 3 days Plan for total 14 days therapy Mild leukocytosis, afebrile Right Subconjunctival hemorrhage: Likely secondary to cough Denies any symptoms Continue to monitor D dimer elevated: ruled out for PE/ DVT CTA and Doppler of B/L Lower extremities: Negative Elevated Troponin: Likely demand ischemia from Afib Troponin trended down ( 0.106--> 0.118 --> 0.106) Continue monitor No signs of Ischemia Thrombocytopenia: Likely secondary to heparin Improving Continue to monitor HIT screen negative Altered Mental Status: Likely metabolic encephalopathy from UTI Back to baseline as per Resolved Generalized Weakness: Likely due to UTI. Improved PT/OT Hypokalemia: Resolved. Continue to monitor VERONIKA On CKD Stage III: Cr levels better: 1.6 today Monitor renal function Avoid nephrotoxins Plan to retest BMP as outpatient and continue to monitor Status post aortic valve replacement stable echo findings. H/O HTN: Continue current meds Parkinson's Disease: Stable Continue Sinemet History Mild Non-obstructive CAD: Stable.No acute cardiac symptoms. Continue aspirin, BB, KRIS-I, statin History BPH: Continue Avodart and Cardura GERD :Continue PPI Code Status: Full code DVT Prophylaxis: IV Heparin discontinued SCDs Disposition: Plan to discharge home with Home Health, Home PT Follow up with Dr. Candido Mcconnell on 06/15/16 at 11:00AM Follow up with cardiology on 06/24/16 at 3:45pm PROCEDURE: ECHO: Small, underfilled LV chamber with mild concentric LVH. Hyperdynamic LV systolic function, EF >70%. No segmental left ventricular wall motion abnormalities are noted. There is a bioprosthetic aortic valve. The gradient is normal for this prosthetic aortic valve. Doppler evidence of regurgitation is probably normal for this prosthetic aortic valve. There is moderate mitral annular calcification. The mitral valve leaflets appear thickened, but open well.There is no mitral regurgitation noted. There is no mitral valve stenosis. Mild left atrial enlargement. Vital Signs: Date Time Temp Pulse Resp B/P Pulse Ox O2 Delivery O2 Flow Rate FiO2 06/09/16 07:25 36.8 70 20 162/82 96 Room Air 06/09/16 02:00 Room Air 06/09/16 00:00 36.6 78 20 115/69 92 Room Air 06/08/16 18:23 36.4 76 18 148/80 97 Room Air 06/08/16 18:20 Room Air 06/08/16 17:37 36.5 71 18 96 06/08/16 16:00 Room Air 06/08/16 15:06 36.5 71 18 128/73 96 Room Air 06/08/16 12:39 Room Air 06/08/16 12:00 Room Air 06/08/16 10:20 66 16 119/76 93 Room Air 06/08/16 09:43 68 18 109/71 94 Room Air 06/08/16 09:38 66 117/72 95 Room Air 06/08/16 09:33 66 16 133/75 96 06/08/16 09:26 87 120/70 95 Room Air 06/08/16 09:20 91 127/73 92 Room Air 06/08/16 09:18 68 129/74 92 Room Air Lab Results: Results Past 24 Hours Test 06/09/16 06:40 Range/Units Activated Partial Thromboplast Time 27.3 21.0-31.0 SECONDS Partial Thromboplastin Ratio 1.1 Sodium Level 143 136-145 mmol/L Potassium Level 4.1 3.5-5.1 mmol/L Chloride Level 111 98-107 mmol/L Carbon Dioxide Level 24 21-32 mmol/L Anion Gap 8.0 3-11 mmol/L Blood Urea Nitrogen 30 7-18 mg/dl Creatinine 1.60 0.60-1.40 mg/dl Est Creatinine Clear Calc Drug Dose 38.7 ml/min Estimated GFR () 44.9 Estimated GFR (Non- 38.7 BUN/Creatinine Ratio 18.8 10-20 Random Glucose 90 70-99 mg/dl Calcium Level 8.1 8.5-10.1 mg/dl
[2016-06-09 08:59] VITALS: BP 162/82; PULSE 70; TEMP 36.8; O2SAT 96
== END 2016-06-09 12:05 | disposition home health service (06) | DRG 689 ==
LOC: ENRESERVTM → ENRESERVDT → EDBD 09:30 → C.EDB 09:31 → C.MED 14:10 → C.2T 06-04 16:10 → C.MS2W 06-08 18:15
PROVIDERS: ADMIT Hospitalist; ATTEND Internal Medicine
PROC: 5A2204Z Restoration of Cardiac Rhythm, Single (ICD-10-PCS; principal; 2016-06-08)
DX: N39.0 Urinary tract infection, site not specified (principal); G93.41 Metabolic encephalopathy; N17.9 Acute kidney failure, unspecified; I24.8 Other forms of acute ischemic heart disease; I48.91 Unspecified atrial fibrillation; R32 Unspecified urinary incontinence; I25.10 Atherosclerotic heart disease of native coronary artery without angina pectoris; E78.5 Hyperlipidemia, unspecified; N40.1 Benign prostatic hyperplasia with lower urinary tract symptoms; H90.3 Sensorineural hearing loss, bilateral; K21.9 Gastro-esophageal reflux disease without esophagitis; M19.90 Unspecified osteoarthritis, unspecified site; G20 Parkinson's disease; L71.9 Rosacea, unspecified; Z90.49 Acquired absence of other specified parts of digestive tract; Z96.649 Presence of unspecified artificial hip joint; Z82.49 Family history of ischemic heart disease and other diseases of the circulatory system; Z87.891 Personal history of nicotine dependence; R09.02 Hypoxemia; I12.9 Hypertensive chronic kidney disease with stage 1 through stage 4 chronic kidney disease, or unspecified chronic kidney disease; N18.3 Chronic kidney disease, stage 3 (moderate); Z79.82 Long term (current) use of aspirin; Z79.899 Other long term (current) drug therapy; E86.1 Hypovolemia; R26.9 Unspecified abnormalities of gait and mobility; E87.6 Hypokalemia; B96.1 Klebsiella pneumoniae [K. pneumoniae] as the cause of diseases classified elsewhere; D72.829 Elevated white blood cell count, unspecified; D75.82 Heparin induced thrombocytopenia (HIT); Z85.820 Personal history of malignant melanoma of skin; Z95.2 Presence of prosthetic heart valve

== ENCOUNTER → 2016-06-13 | Outpatient (CLI) | payer BC, OTHER ==
[~2016-06-13] MED LIST changes: +ASPI81TA28 PO; +B-CO1CAP3 PO; -B-COCAP2 PO; +CARB25TA12 PO; +CELE100C PO; +CPR500 PO; +DUTA0.5C PO; -HYDR-5688 PO; -LANS30CA12; +LISI-725 PO; +LISI1TAB3 PO; +LPR25 PO; -METO1TAB69 PO; +METO25TA56 PO; +METR0.7527 TOP; -METR0.754; +MULTCAP42 PO; -OMEG10007 PO; -PRENTAB26 PO; -SILD100T PO
[2016-06-13 19:49] LABS: BLOOD UREA NITROGEN 18 mg/dl (7-18); BUN/CREATININE RATIO 14.7 (10-20); CALCIUM 8.3 mg/dl (8.5-10.1); CARBON DIOXIDE 25 mmol/L (21-32); CHLORIDE 104 mmol/L (98-107); GLUCOSE 86 mg/dl (70-99); POTASSIUM 4.2 mmol/L (3.5-5.1); SODIUM 138 mmol/L (136-145)
--- NOTE | 2016-06-15 10:57 | CODING QUERY NO DIAGNOSIS ---
Valid Physician Order Needed A valid physician order must be submitted in order to properly bill for the service(s) provided, including date of service(s), valid diagnosis, and physician signature. If these tests are done on a recurring basis the original physican order must be submitted in order to code and bill for the service(s) provided. Please fax us the original, signed physician order so that we may expedite billing to [phone] DOS 06/13/16 * PRP ORDERED BY DR. IZZY BOWERS Thank you Valentine [facility] Information Management
== END | disposition home or self-care (01) ==
LOC: C.LABSPEC 12:54
PROVIDERS: ATTEND Family Medicine
DX: N39.0 Urinary tract infection, site not specified (principal); R09.02 Hypoxemia; G20 Parkinson's disease

== ENCOUNTER 2016-10-19 16:00 | Emergency (ER) | payer BC ==
[~2016-10-19] VITALS: Ht 177.8 cm; Wt 89.4 kg
[~2016-10-19 16:00] MED LIST changes: -ASPI81TA28 PO; -DUTA0.5C PO; -LISI-725 PO; -LPR25 PO; -METO25TA56 PO
[2016-10-19 16:10] VITALS: TEMP 36.6; Ht 177.8 cm; Wt 89.4 kg
[2016-10-19] MEDS ORDERED: LPR25 PO (16:18)
[2016-10-19] MEDS ORDERED: METO25TA56 PO (16:18)
[2016-10-19] MEDS ORDERED: LISI-725 PO (16:18)
[2016-10-19] MEDS ORDERED: ASPI81TA28 PO (16:18)
[2016-10-19] MEDS ORDERED: DUTA0.5C PO (16:18)
--- NOTE | 2016-10-19 17:02 | DIAGNOSTIC IMAGING REPORT ---
CT OF THE HEAD WITHOUT CONTRAST CLINICAL HISTORY: Fall yesterday, [facility] COMPARISON STUDY: Head CT January 21, 2016. CT DOSE: 1251.37 mGy.cm TECHNIQUE: Helical axial images of the head were obtained without IV contrast. Automated exposure control was utilized for the study. A dose lowering technique was utilized adhering to the principles of ALARA. FINDINGS: No acute intracranial hemorrhage, midline shift or mass effect is present. The ventricular system is stable. Basilar cisterns are patent. There are no extra-axial collections. There is bilateral basal ganglia calcification. Moderate white matter hypodensity suggests small vessel disease. There is no calvarial fracture. There is minimal layering secretions within the left sphenoid sinus. IMPRESSION: 1. No acute intracranial findings. 2. No calvarial fracture. Electronically signed by: Ermias Pardo M.D. 10/19/2016 5:01 PM Dictated Date/Time: 10/19/2016 4:58 PM
--- NOTE | 2016-10-19 17:16 | DIAGNOSTIC IMAGING REPORT ---
CT OF THE CERVICAL SPINE WITHOUT CONTRAST CLINICAL HISTORY: Cervical pain, outside XR ? dens fx COMPARISON STUDY: No previous studies for comparison. TECHNIQUE: Helical axial images of the cervical spine were obtained without IV contrast. Sagittal and coronal reconstructions were viewed. A dose lowering technique was utilized adhering to the principles of ALARA. FINDINGS: Craniocervical junction is intact. There is an acute minimally distracted type II odontoid fracture located at the base of the odontoid. Fracture is distracted 2 mm. There is slight posterior tilt of the odontoid. No additional cervical spine fractures are present. There is severe multilevel facet arthrosis. There is no pneumothorax within visualized portions of the lung apices. There is moderate multilevel degenerative disc disease. IMPRESSION: 1. Acute minimally distracted type II odontoid fracture with slight posterior tilt of the odontoid. Type II odontoid fractures are often unstable. 2. No additional cervical spine fractures. 3. Moderate multilevel degenerative disc disease and severe multilevel facet arthrosis. Electronically signed by: Ermias Pardo M.D. 10/19/2016 5:15 PM Dictated Date/Time: 10/19/2016 5:01 PM
--- NOTE | 2016-10-19 17:23 | EMERGENCY ROOM VISIT NOTE ---
History Report prepared by Markie: Denny Weeks Under the Supervision of: Dr. Ana M Leigh M.D. First contact with patient: 16:23 Chief Complaint: NECK PAIN Stated Complaint: NECK PAIN & FX FROM FALL History of Present Illness The patient is a 85 year old male who presents to the Emergency Room with complaints of persistent neck pain starting yesterday afternoon secondary to a fall. The patient stepped backwards and fell into a drainage hole. He hit his head but is not sure if he hit a rock, cement, or grass. He has worsening pain with neck movement. He had Tylenol and Advil with some relief. He had an x-ray today and he was referred to the Emergency Room for concerns about a C2 fracture. He denies confusion, vomiting, or any other complaints. Source of History: patient Onset: yesterday afternoon Position: neck Timing: other (persistent) Modifying Factors (Worsening): movement Modifying Factors (Relieving): tylenol (with some relief), other (Advil with some relief) Associated Symptoms: No vomiting Review of Systems See HPI for pertinent positives & negatives. A total of 10 systems reviewed and were otherwise negative. Past Medical & Surgical Medical Problems: (1) Aortic stenosis (2) Bilateral sensorineural hearing loss (3) CKD (chronic kidney disease), stage III (4) Dyslipidemia (5) Esophageal reflux (6) HTN (hypertension) (7) Hx of malignant melanoma (8) Hypoxia (9) Mild coronary artery disease (10) Osteoarthritis (11) Parkinsons disease (12) Rosacea Surgical Problems: (1) H/O aortic valve replacement (2) H/O arthroscopic knee surgery (3) H/O exploratory laparotomy (4) H/O inguinal hernia repair (5) H/O total hip arthroplasty (6) History of appendectomy (7) History of cataract surgery (8) S/P appendectomy (9) S/P AVR (aortic valve replacement) (10) S/P cardiac cath (11) S/P ear surgery (12) S/p excision malignant melanoma (13) S/p reduction of bowel obstruction Family History FH: CAD (coronary artery disease) SISTER Hypertension FATHER Social History Smoking Status: Never Smoker Drug Use: none Marital Status: Housing Status: lives with family Occupation Status: retired Current/Historical Medications Scheduled Aspirin (Aspirin Ec), 81 MG PO DAILY B-Complex Vitamins (B Complex), 1 CAP PO DAILY Carbidopa/Levodopa (Sinemet 25MG/100MG), 2 TAB PO TID Dutasteride (Avodart), 0.5 MG PO DAILY Metoprolol Tartrate (Lopressor), 50 MG PO QAM Metoprolol Tartrate (Lopressor) (Lopressor), 25 MG PO QPM Multiple Vitamin (Multivitamins), 1 CAP PO DAILY Omeprazole (Prilosec), 20 MG PO HS Rosuvastatin Calcium (Crestor *), 10 MG PO DAILY Miscellaneous Medications Lisinopril (Zestril), 20 MG PO Allergies Coded Allergies: No Known Allergies (Verified , 10/19/16) Physical Exam Vital Signs Date Time Temp Pulse Resp B/P (MAP) Pulse Ox O2 Delivery O2 Flow Rate FiO2 10/19/16 18:46 67 18 95 10/19/16 17:44 62 18 165/83 98 Room Air 10/19/16 16:33 60 20 183/86 95 Room Air 10/19/16 16:15 62 10/19/16 16:10 36.6 95 16 179/87 95 Room Air Physical Exam Vital signs reviewed. General: Well-appearing, elderly, in no significant distress. HEENT: No scleral icterus, PERRLA, neck supple. Atraumatic. Cervical collar in place. No tenderness to palpation of the cervical spine. Cardiovascular: Regular rate and rhythm, no extra sounds. Pulmonary: Clear to auscultation bilaterally, normal work of breathing. Abdomen: Soft, nontender, nondistended, positive bowel sounds. Musculoskeletal: Atraumatic, no peripheral edema. Neurologic: Patient awake alert and oriented x 3, equal strength in bilateral upper and lower extremities. Answers questions appropriately. Follows commands. Cranial nerves 2 through 12 grossly intact. Skin: Warm, dry, no rash Medical Decision & Procedures ER Provider Diagnostic Interpretation: X-ray results as stated below per interpretation by me and the radiologist: CERVICAL SPINE 10/19/2016 Impression: 1. Cannot exclude dens fracture. Recommend CT cervical spine for further evaluation. 2. Chronic changes otherwise as above. Authenticated by: Mickey Davis DO CT results as stated below per my review and radiologist interpretation: CT OF THE HEAD WITHOUT CONTRAST CLINICAL HISTORY: Fall yesterday, [facility] COMPARISON STUDY: Head CT January 21, 2016. CT DOSE: 1251.37 mGy.cm TECHNIQUE: Helical axial images of the head were obtained without IV contrast. Automated exposure control was utilized for the study. A dose lowering technique was utilized adhering to the principles of ALARA. FINDINGS: No acute intracranial hemorrhage, midline shift or mass effect is present. The ventricular system is stable. Basilar cisterns are patent. There are no extra-axial collections. There is bilateral basal ganglia calcification. Moderate white matter hypodensity suggests small vessel disease. There is no calvarial fracture. There is minimal layering secretions within the left sphenoid sinus. IMPRESSION: 1. No acute intracranial findings. 2. No calvarial fracture. Electronically signed by: Ermias Pardo M.D. 10/19/2016 5:01 PM Dictated Date/Time: 10/19/2016 4:[address] OF THE CERVICAL SPINE WITHOUT CONTRAST CLINICAL HISTORY: Cervical pain, outside XR ? dens fx COMPARISON STUDY: No previous studies for comparison. TECHNIQUE: Helical axial images of the cervical spine were obtained without IV contrast. Sagittal and coronal reconstructions were viewed. A dose lowering technique was utilized adhering to the principles of ALARA. FINDINGS: Craniocervical junction is intact. There is an acute minimally distracted type II odontoid fracture located at the base of the odontoid. Fracture is distracted 2 mm. There is slight posterior tilt of the odontoid. No additional cervical spine fractures are present. There is severe multilevel facet arthrosis. There is no pneumothorax within visualized portions of the lung apices. There is moderate multilevel degenerative disc disease. IMPRESSION: 1. Acute minimally distracted type II odontoid fracture with slight posterior tilt of the odontoid. Type II odontoid fractures are often unstable. 2. No additional cervical spine fractures. 3. Moderate multilevel degenerative disc disease and severe multilevel facet arthrosis. Electronically signed by: Ermias Pardo M.D. 10/19/2016 5:15 PM Dictated Date/Time: 10/19/2016 5:01 PM ED Course 1623: Past medical records reviewed. The patient was evaluated in room B12B. A complete history and physical examination was performed. 1751: I discussed the patient's case with Dr. Baez, orthopedic surgeon with [facility]. 1800: Upon reevaluation, the patient is resting comfortably. I discussed findings with him. He verbalized agreement of the treatment plan. He was discharged home. Medical Decision Differential diagnosis includes but is not limited to fracture, musculoskeletal strain, spinal hematoma, disc herniation, intracranial hemorrhage, concussion. This patient was evaluated and appeared to be in no significant distress. IV access was obtained and laboratory work was drawn. CT scan of the head and neck was performed and reveals a dens fracture. CT scan of the head is negative for acute intracranial abnormality. Patient was switched a [place] J collar. I did speak with Dr. Baez of orthopedic spine. He has recommended that the patient is in this collar at all times with the exception of a shower. He will see the patient in one week for reevaluation and repeat films. I did speak with the patient's son who is a radiologist at an outside facility. I explained the findings on CT. The patient was discharged to the care of family and will return to the ER for worsening of symptoms or any medical concerns. Head Trauma GCS Score: 15 Medication Reconcilliation Current Medication List: was personally reviewed by me Blood Pressure Screening Patient's blood pressure: Elevated blood pressure Blood pressure disposition: Referred to PCP Consults Time Called: 1750 Consulting Physician: Dr. Baez, orthopedic surgeon with [facility] Returned Call: 1751 I discussed the patient's case with Dr. Baez, orthopedic surgeon with [facility]. Impression Primary Impression: Type II dens fracture of second cervical vertebra Scribe Attestation The scribe's documentation has been prepared under my direction and personally reviewed by me in its entirety. I confirm that the note above accurately reflects all work, treatment, procedures, and medical decision making performed by me. Departure Information Dispostion Home / Self-Care Referrals Pedro Baez,Tomy.O. Candido Mcconnell, D.O. Forms HOME CARE DOCUMENTATION FORM, IMPORTANT VISIT INFORMATION, WORK / SCHOOL INSTRUCTIONS Patient Instructions Fx Neck Spine, My [facility] Additional Instructions Diagnosis: Type II dens fracture Tylenol 650 mg every 6 hours as needed for pain. Wear the [place] J cervical collar at all times with the exception of bathing. Case management will help assist you in establishing and a follow-up appointment with Dr. Baez of spine surgery. You should be reevaluated in 1 week. Return to the emergency department for worsening of symptoms or any medical concerns.
[2016-10-19 17:44] VITALS: BP 165/83
[2016-10-19 18:46] VITALS: PULSE 67; O2SAT 95
== END 2016-10-19 18:47 | disposition home or self-care (01) ==
LOC: EDBD 16:00 → C.EDB 16:03
DX: S12.110A Anterior displaced Type II dens fracture, initial encounter for closed fracture (principal); W17.89XA Other fall from one level to another, initial encounter; I12.9 Hypertensive chronic kidney disease with stage 1 through stage 4 chronic kidney disease, or unspecified chronic kidney disease; N18.3 Chronic kidney disease, stage 3 (moderate); E78.5 Hyperlipidemia, unspecified; I25.10 Atherosclerotic heart disease of native coronary artery without angina pectoris; K21.9 Gastro-esophageal reflux disease without esophagitis; G20 Parkinson's disease; I35.0 Nonrheumatic aortic (valve) stenosis; M19.90 Unspecified osteoarthritis, unspecified site; Z95.2 Presence of prosthetic heart valve; Z98.49 Cataract extraction status, unspecified eye; Z98.890 Other specified postprocedural states; Z79.82 Long term (current) use of aspirin; Z79.899 Other long term (current) drug therapy; Z82.49 Family history of ischemic heart disease and other diseases of the circulatory system

== ENCOUNTER → 2017-02-15 | Outpatient (CLI) | payer BC ==
[~2017-02-15] MED LIST changes: -ASPEC81 PO; +ASPI81TA28 PO; -AVD5 PO; -CELE100C PO; -CPR500 PO; -CRD4 PO; +DUTA0.5C PO; +LISI-725 PO; -LISI1TAB3 PO; +LPR25 PO; +METO25TA56 PO; -METR0.7527 TOP
--- NOTE | 2017-02-15 14:34 | DIAGNOSTIC IMAGING REPORT ---
CT OF THE CERVICAL SPINE WITHOUT CONTRAST CLINICAL HISTORY: Follow up closed odontoid fracture. COMPARISON STUDY: Cervical spine CT October 19, 2016. TECHNIQUE: Helical axial images of the cervical spine were obtained without IV contrast. Sagittal and coronal reconstructions were viewed. A dose lowering technique was utilized adhering to the principles of ALARA. FINDINGS: Note is again made of a minimally distracted fracture through the base of the dens which is similar in appearance to exam of October 19, 2016. Adjacent sclerosis has slightly increased. No significant bony bridging is present. Minimal posterior tilt of the odontoid is unchanged. Craniocervical junction is unchanged. There is moderate multilevel degenerative disc disease and severe multilevel facet arthrosis. There is no prevertebral edema. IMPRESSION: No change in alignment of the minimally distracted type II odontoid fracture with slight posterior tilt of the odontoid since CT of October 19, 2016. No significant bony bridging. Slight interval increase in sclerosis along the fracture margins. Fracture healing is less than expected. Type II odontoid fractures are often unstable. Electronically signed by: Ermias Pardo M.D. 02/15/2017 2:33 PM Dictated Date/Time: 02/15/2017 2:24 PM
== END | disposition home or self-care (01) ==
LOC: C.CTS 13:05
PROVIDERS: ATTEND Physician Assistant Medical
DX: S12.100A Unspecified displaced fracture of second cervical vertebra, initial encounter for closed fracture (principal)

== ENCOUNTER 2020-06-29 09:30 | Inpatient (IN) ==
[2020-06-29] MEDS ORDERED: NITROGLYCERIN SL 0.4 MG/TAB TAB SL STA (10:02)
[2020-06-29] MEDS ORDERED: GI COCKTAIL ED USE PO ONE (10:02)
[2020-06-29] MEDS ORDERED: ONDANSETRON INJ 2 MG/ML 2 ML VIAL IV STA (10:02)
[2020-06-29] MEDS ORDERED: GLUCAGON 1 ML IV ONE (10:02)
--- NOTE | 2020-06-29 10:16 | Emergency Department Note ---
History of Present Illness General Chief complaint: Food Bolus Time Seen by Provider: 06/29/20 09:57 Source: EMS and RN notes reviewed History of Present Illness Provider complaint: Difficulty swallowing Onset (ago): day(s) 1 89-year-old male with history of dementia and Parkinson's disease presents emergency department with difficulty swallowing. Patient is from the dementia unit at [facility]. Patient was brought in via EMS.. EMS reports that the nursing reported since supper last night the patient has been coughing and spitt ing up, they are afraid that he might have something stuck in his throat. No falls. No fevers. Patient is a DNR. Home Medications Medication Instructions Recorded Confirmed Type carbidopa-levodopa [Sinemet] 2 tab PO BID 03/26/19 06/29/20 History doxazosin [Cardura] 4 mg PO HS 03/26/19 06/29/20 History ferrous sulfate 325 mg PO DAILY 03/26/19 06/29/20 History lisinopril 20 mg PO DAILY 03/26/19 06/29/20 History metoprolol tartrate 25 mg PO QPM 03/26/19 06/29/20 History metoprolol tartrate 50 mg PO QAM 03/26/19 06/29/20 History omeprazole 20 mg PO QAM 03/26/19 06/29/20 History rosuvastatin 10 mg PO DAILY 03/26/19 06/29/20 History acetaminophen [Tylenol 8 Hour] 650 mg PO Q12H PRN 08/17/19 06/29/20 History acetaminophen [Tylenol] 650 mg PO Q4H PRN 08/17/19 06/29/20 History aspirin 81 mg PO DAILY 08/17/19 06/29/20 History multivitamin 1 tab PO DAILY 08/17/19 06/29/20 History quetiapine [Seroquel] 25 mg PO BID 08/17/19 06/29/20 History albuterol sulfate 2 inh INHALATION Q6H PRN 06/29/20 06/29/20 History bisacodyl 10 mg VA DAILY PRN 06/29/20 06/29/20 History carbidopa-levodopa 1 tab PO DAILY@1400 06/29/20 06/29/20 History cholecalciferol (vitamin D3) 25 mcg PO DAILY 06/29/20 06/29/20 History escitalopram oxalate 10 mg PO HS 06/29/20 06/29/20 History finasteride 5 mg PO DAILY 06/29/20 06/29/20 History magnesium hydroxide [Milk of 30 ml PO DAILY PRN 06/29/20 06/29/20 History Magnesia] quetiapine 75 mg PO HS 06/29/20 06/29/20 History sodium phosphates [Fleet Enema] 118 ml VA HS PRN 06/29/20 06/29/20 History Allergies Allergy/AdvReac Type Severity Reaction Status Date / Time No Known Allergies Allergy Unknown Verified 06/29/20 10:35 Past Med/Surg History Medical History (Updated 06/29/20 @ 12:31 by Michele Asif) Aortic stenosis Bilateral sensorineural hearing loss CKD (chronic kidney disease), stage III Dyslipidemia Esophageal reflux HTN (hypertension) Hx of malignant melanoma Mild coronary artery disease Osteoarthritis Parkinsons disease Rosacea Surgical History H/O aortic valve replacement "bioprosthetic" H/O arthroscopic knee surgery H/O exploratory laparotomy H/O inguinal hernia repair H/O total hip arthroplasty History of appendectomy History of cataract surgery S/P appendectomy S/P AVR (aortic valve replacement) S/P cardiac cath S/P ear surgery Social History Smoking Status: Unknown if ever smoked Preferred Language: Sinhala Feels Safe at Home: Yes Review of Systems Unobtainable due to cognitive status (Due to dementia) Physical Exam Vital Signs Vital Signs - 24 hr 06/29/20 09:36 06/29/20 09:40 06/29/20 09:52 Temperature 36.8 C Temperature Source Oral Pulse Rate 86 90 100 H Pulse Rate from SpO2 Sensor Respiratory Rate 15 14 18 Blood Pressure 155/90 H 155/90 H Blood Pressure Mean 111 111 Pulse Oximetry 95 Oxygen Delivery Method Room Air Sepsis Recent Fever Within 48 Hours No Sepsis New/Unexplained Change in Mental Status No Sepsis Action Taken by Nursing No Action Required 06/29/20 10:00 06/29/20 10:30 06/29/20 11:14 Temperature Temperature Source Pulse Rate 95 H 87 84 Pulse Rate from SpO2 Sensor 100 H 92 H Respiratory Rate 12 19 15 Blood Pressure 145/103 H 150/92 H Blood Pressure Mean 117 111 Pulse Oximetry 90 90 Oxygen Delivery Method Sepsis Recent Fever Within 48 Hours Sepsis New/Unexplained Change in Mental Status Sepsis Action Taken by Nursing 06/29/20 11:15 06/29/20 11:30 06/29/20 11:31 Temperature Temperature Source Pulse Rate 83 78 66 Pulse Rate from SpO2 Sensor 74 71 Respiratory Rate 14 16 18 Blood Pressure 113/77 128/85 Blood Pressure Mean 89 99 Pulse Oximetry 91 91 Oxygen Delivery Method Sepsis Recent Fever Within 48 Hours Sepsis New/Unexplained Change in Mental Status Sepsis Action Taken by Nursing 06/29/20 12:00 Temperature Temperature Source Pulse Rate 87 Pulse Rate from SpO2 Sensor 87 Respiratory Rate 16 Blood Pressure 140/111 H Blood Pressure Mean 120 Pulse Oximetry 86 L Oxygen Delivery Method Sepsis Recent Fever Within 48 Hours Sepsis New/Unexplained Change in Mental Status Sepsis Action Taken by Nursing Physical Exam HENT: Exam performed. - Head: Normocephalic and atraumatic. - Right Ear: External ear normal. No mastoid tenderness. - Left Ear: External ear normal. No mastoid tenderness. - Mouth/Throat: The oropharynx is clear and moist. No trismus in the jaw. No dental abscesses or uvula swelling. No oropharyngeal exudate or tonsillar abscesses. EYES: Conjunctivae and EOM are normal. Pupils are equal, round, and reactive to light. Right eye exhibits no discharge. Left eye exhibits no discharge. No scleral icterus. NECK: Normal range of motion. Neck supple. No JVD present. No spinous process tenderness present. No carotid bruit present. No rigidity. No tracheal deviation and normal range of motion present. No Brudzinski's sign and no Kernig's sign noted. CV: Normal rate, regular rhythm, normal heart sounds and intact distal pulses. There is no peripheral edema. Palpable radial pulses bue. PULM/CHEST: Rhonchi bilaterally - Chest Wall: He exhibits no tenderness. ABD: The abdomen is soft. Bowel sounds are normal. He has no distension. No mass is present. There is no tenderness. There is no rebound, no guarding, no Felix's sign and no tenderness at McBurney's point. Rovsig negative. MUSC/SKEL: Normal range of motion. There is no peripheral edema, tenderness or deformity. LYMPH: No cervical adenopathy. NEURO: Motor and sensation grossly intact Course Course 09: The patient was evaluated in room A12. A complete history and physical exam was performed Cardiac monitoring: An order was placed for continuous cardiac monitoring. The monitor shows a rate of 90 with atrial fibrillation rhythm 1157: Patient still unable to tolerate p.o. Patient still keeps vomiting back up with acute put in his mouth. Spoke with GI they will come and evaluate the patient. 1206: Patient is now hypoxic requiring supplemental oxygen via nasal cannula. On 2 L nasal cannula patient's oxygen saturation is stabilized. Is thought that the patient could have aspirated given his chest x-ray findings and his history of difficulty swallowing with history of Parkinson's. Patient will be started on Unasyn 3 g. [facility] to admit to Dr. Acevedo. GI notified that the patient will be admitted to medicine. Administered Medications Discontinued Medications Al Hydrox/Mg Hydrox/Simethicone (Gi Cocktail Ed Use) 1 dose PO ONE ONE Stop: 06/29/20 10:03 Last Admin: 06/29/20 10:22 Dose: 1 dose Documented by: [id number] Glucagon (Glucagen) 1 mls @ 1 mls/min IV ONE ONE Stop: 06/29/20 10:03 Last Admin: 06/29/20 10:22 Dose: 1 mls/min Documented by: [id number] Nitroglycerin (Nitroglycerin Sl 0.4 Mg/Tab Tab) 0.4 mg SL NOW STA Stop: 06/29/20 10:03 Last Admin: 06/29/20 10:22 Dose: 0.4 mg Documented by: [id number] Ondansetron HCl (Ondansetron Inj 2 Mg/Ml 2 Ml Vial) 4 mg IV NOW STA Stop: 06/29/20 10:03 Last Admin: 06/29/20 10:22 Dose: 4 mg Documented by: [id number] Critical Care Time Critical Care Time: Yes Total Critical Care Time: 57 I have personally spent greater than 57 minutes of critical care time in the direct management of this patient. This includes bedside care, interpretation of diagnostic studies, and testing, discussion with consultants, patient, and family members, and other required patient management activities. This 57 minutes is in excess of all separately billable procedures. Medical Decision Making Laboratory Data Result diagrams: 06/29/20 09:50 06/29/20 11:37 Lab Results 06/29/20 06/29/20 06/29/20 Range/Units 09:50 09:50 09:50 WBC 9.88 (4.8-10.8) K/uL RBC 4.18 L (4.7-6.1) M/uL Hgb 13.4 L (14.0-18.0) g/dL Hct 39.7 L (42-52) % MCV 95.0 (80-100) fL MCH 32.1 (25-34) pg MCHC 33.8 (32-36) g/dL RDW Std Deviation 52.0 H (36.4-46.3) fL RDW Coeff of Arthur 15.0 H (11.5-14.5) % Plt Count 308 (130-400) K/uL MPV 10.3 (7.4-10.4) fL Immature Gran % (Auto) 0.2 % Neut % (Auto) 70.5 % Lymph % (Auto) 16.8 % [place] % (Auto) 8.8 % Eos % (Auto) 3.2 % Baso % (Auto) 0.5 % Neut # (Auto) 6.96 H (1.4-6.5) K/uL Lymph # (Auto) 1.66 (1.2-3.4) K/uL [place] # (Auto) 0.87 H (0.11-0.59) K/uL Eos # (Auto) 0.32 (0-0.5) K/uL Baso # (Auto) 0.05 (0-0.2) K/uL Immature Gran # (Auto) 0.02 (0.00-0.02) K/uL Sodium 141 (136-145) mmol/L Potassium (3.5-5.1) mmol/L Chloride 109 H (98-107) mmol/L Carbon Dioxide 27 (21-32) mmol/L Anion Gap 5.0 (3-11) BUN 32 H (7-18) mg/dl Creatinine 1.48 H (0.6-1.4) mg/dl Est Cr Clr Drug Dosing 41.4 ml/min Est GFR ( Amer) 47.9 Est GFR (Non-Af Amer) 41.4 BUN/Creatinine Ratio 21.4 H (10-20) Glucose 84 (70-99) mg/dl Calcium 8.9 (8.5-10.1) mg/dl Lipase 109 Cancelled (73-393) U/L 06/29/20 Range/Units 11:37 WBC (4.8-10.8) K/uL RBC (4.7-6.1) M/uL Hgb (14.0-18.0) g/dL Hct (42-52) % MCV (80-100) fL MCH (25-34) pg MCHC (32-36) g/dL RDW Std Deviation (36.4-46.3) fL RDW Coeff of Arthur (11.5-14.5) % Plt Count (130-400) K/uL MPV (7.4-10.4) fL Immature Gran % (Auto) % Neut % (Auto) % Lymph % (Auto) % [place] % (Auto) % Eos % (Auto) % Baso % (Auto) % Neut # (Auto) (1.4-6.5) K/uL Lymph # (Auto) (1.2-3.4) K/uL [place] # (Auto) (0.11-0.59) K/uL Eos # (Auto) (0-0.5) K/uL Baso # (Auto) (0-0.2) K/uL Immature Gran # (Auto) (0.00-0.02) K/uL Sodium (136-145) mmol/L Potassium 4.6 (3.5-5.1) mmol/L Chloride (98-107) mmol/L Carbon Dioxide (21-32) mmol/L Anion Gap (3-11) BUN (7-18) mg/dl Creatinine (0.6-1.4) mg/dl Est Cr Clr Drug Dosing ml/min Est GFR ( Amer) Est GFR (Non-Af Amer) BUN/Creatinine Ratio (10-20) Glucose (70-99) mg/dl Calcium (8.5-10.1) mg/dl Lipase (73-393) U/L Imaging Data Radiologist's Impression: Chest X-Ray 06/29/20 10:28 SINGLE VIEW CHEST CLINICAL HISTORY: Dysphagia. FINDINGS: An AP, portable, upright chest radiograph is compared to study dated 06/07/2016 and correlated with chest CT dated 06/02/2016. The examination is degraded by portable technique and patient rotation. The patient is status post midline sternotomy. There are calcified right hilar lymph nodes. The heart is enlarged noting atherosclerotic calcification of the thoracic aorta. The pulmonary vasculature is noncongested. Chronic interstitial thickening is similar to previous. Interstitial airspace opacities are suggested throughout both lungs, left greater than right. There is bibasilar scarring/atelectasis. No pneumothorax is seen. The skeletal structures are osteopenic. The bony thorax is grossly intact. IMPRESSION: 1. Cardiomegaly without radiographic evidence of congestive failure. 2. Interstitial airspace opacities are suggested in both lungs, left greater than right. Correlate clinically for evidence of an infectious/inflammatory pneumonitis. Radiographic follow-up to resolution is recommended. ACT 112: Negative or not required by law. Electronically signed by: Ricky Sanchez M.D. 06/29/2020 11:17 AM Soft Tissue Neck X-Ray 06/29/20 10:28 XR soft tissue neck CLINICAL HISTORY: dysphagia COMPARISON STUDY: CT scan dated 08/17/2019 FINDINGS: There is an ununited odontoid fracture. The retropharyngeal soft tissues appear unremarkable. The epiglottis appears normal. There are prominent carotid bulb calcifications. There is soft tissue prominence of the superior mediastinum, likely secondary to tortuous/ectatic great vessels. IMPRESSION: 1. 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 Normal-appearing epiglottis. No prevertebral soft tissue widening ACT 112: Negative or not required by law. Electronically signed by: Nadir Dias M.D. 06/29/2020 11:30 AM ECG Data Indication: + SOB/dyspnea Rate (beats per minute): 96 Rhythm: + atrial fibrillation ECG Intervals/blocks: + Normal QRS and + Normal QT-c ECG ST segments: + Normal ST segments MDM Narrative 0957: The patient was evaluated in room A12. A complete history and physical exam was performed Cardiac monitoring: An order was placed for continuous cardiac monitoring. The monitor shows a rate of 90 with atrial fibrillation rhythm 1157: Patient still unable to tolerate p.o. Patient still keeps vomiting back up with acute put in his mouth. Spoke with GI they will come and evaluate the patient. 1206: Patient is now hypoxic requiring supplemental oxygen via nasal cannula. On 2 L nasal cannula patient's oxygen saturation is stabilized. Is thought that the patient could have aspirated given his chest x-ray findings and his history of difficulty swallowing with history of Parkinson's. Patient will be started on Unasyn 3 g. Patient will be admitted to the [facility] hospitalist team Nicole minor to admit to Dr. Acevedo. GI notified that the patient will be admitted to medicine. Impression & Plan Hypoxia, Aspiration pneumonia Discharge Plan Visit Data Chief Complaint: Food Bolus ED Provider: Michele Asif Discharge Problem: Hypoxia, Aspiration pneumonia Patient Disposition: Being Evaluated by Hospitalist Forms Stand Alone Forms: [facility] Prescriptions Prescriptions: No Action lisinopril 20 mg tablet 20 mg PO DAILY RF: 0 ferrous sulfate 325 mg (65 mg iron) Tablet 325 mg PO DAILY RF: 0 omeprazole 20 mg capsule,delayed release(DR/EC) 20 mg PO QAM RF: 0 doxazosin [Cardura] 4 mg tablet 4 mg PO HS RF: 0 carbidopa-levodopa [Sinemet] 25-100 mg tablet 2 tab PO BID RF: 0 rosuvastatin 10 mg tablet 10 mg PO DAILY RF: 0 metoprolol tartrate 25 mg tablet 50 mg PO QAM RF: 0 metoprolol tartrate 25 mg tablet 25 mg PO QPM RF: 0 aspirin 81 mg Tablet,Delayed Release (Dr/Ec) 81 mg PO DAILY RF: 0 multivitamin Tablet 1 tab PO DAILY RF: 0 quetiapine [Seroquel] 25 mg Tablet 25 mg PO BID RF: 0 acetaminophen [Tylenol 8 Hour] 650 mg Tablet Extended Release 650 mg PO Q12H PRN (Reason: knee pain) RF: 0 acetaminophen [Tylenol] 325 mg Tablet 650 mg PO Q4H PRN (Reason: pain/fever) RF: 0 magnesium hydroxide [Milk of Magnesia] 400 mg/5 mL Suspension 30 ml PO DAILY PRN (Reason: Constipation) RF: 0 bisacodyl 10 mg Suppository 10 mg VA DAILY PRN (Reason: Constipation) RF: 0 Fleet Enema 19-7 gram/118 mL Enema 118 ml VA HS PRN (Reason: Constipation) RF: 0 carbidopa-levodopa 25-100 mg Tablet 1 tab PO DAILY@1400 RF: 0 finasteride 5 mg Tablet 5 mg PO DAILY RF: 0 escitalopram oxalate 10 mg Tablet 10 mg PO HS RF: 0 quetiapine 50 mg Tablet 75 mg PO HS RF: 0 cholecalciferol (vitamin D3) 25 mcg (1,000 unit) Tablet 25 mcg PO DAILY RF: 0 albuterol sulfate 90 mcg/actuation Aerosol Powdr Breath Activated 2 inh INHALATION Q6H PRN (Reason: Wheezing) RF: 0 Referrals Referrals: Taylor Ware at [place] [Primary Care Provider] - Discharge Problem: Aspiration pneumonia Qualifiers: Aspiration pneumonia type: unspecified Laterality: bilateral Lung location: unspecified part of lung Qualified Code(s): J69.0 - Pneumonitis due to inhalation of food and vomit
[2020-06-29 10:46] LABS: Basophils # (auto) 0.05 K/uL (0-0.2); Basophils % (auto) 0.5 %; Eosinophils # (auto) 0.32 K/uL (0-0.5); Eosinophils % (auto) 3.2 %; Hematocrit (blood only) 39.7 % (42-52); Hemoglobin 13.4 g/dL (14.0-18.0); Immature Granulocytes # (auto) 0.02 K/uL (0.00-0.02); Immature Granulocytes % (auto) 0.2 %; Lymphocytes # (auto) 1.66 K/uL (1.2-3.4); Lymphocytes % (auto) 16.8 %; Mean Corpuscular Hemoglobin 32.1 pg (25-34); Mean Corpuscular Hgb Conc 33.8 g/dL (32-36); Mean Platelet Volume 10.3 fL (7.4-10.4); Monocytes # (auto) 0.87 K/uL (0.11-0.59); Monocytes % (auto) 8.8 %; Neutrophils # (auto) 6.96 K/uL (1.4-6.5); Neutrophils % (auto) 70.5 %; Platelet Count 308 K/uL (130-400); Red Blood Count 4.18 M/uL (4.7-6.1); White Blood Count 9.88 K/uL (4.8-10.8)
[2020-06-29 11:14] LABS: BUN Creatinine Ratio 21.4 (10-20); Calcium 8.9 mg/dl (8.5-10.1); Creatinine Clr Calc Pharmacy 41.4 ml/min; Est GFR (African American) 47.9; Est GFR (Non-African American) 41.4
--- NOTE | 2020-06-29 11:19 | XRay Report ---
SINGLE VIEW CHEST CLINICAL HISTORY: Dysphagia. FINDINGS: An AP, portable, upright chest radiograph is compared to study dated 06/07/2016 and correlat ed with chest CT dated 06/02/2016. The examination is degraded by portable technique and patient rotati on. The patient is status post midline sternotomy. There are calcified right hilar lymph nodes. The h eart is enlarged noting atherosclerotic calcification of the thoracic aorta. The pulmonary vasculatur e is noncongested. Chronic interstitial thickening is similar to previous. Interstitial airspace opac ities are suggested throughout both lungs, left greater than right. There is bibasilar scarring/atele ctasis. No pneumothorax is seen. The skeletal structures are osteopenic. The bony thorax is grossly i ntact. IMPRESSION: 1. Cardiomegaly without radiographic evidence of congestive failure. 2. Interstitial airspace opacities are suggested in both lungs, left greater than right. Correlate cl inically for evidence of an infectious/inflammatory pneumonitis. Radiographic follow-up to resolution is recommended. ACT 112: Negative or not required by law. Electronically signed by: Ricky Sanchez M.D. 06/29/2020 11:17 AM
--- NOTE | 2020-06-29 11:31 | XRay Report ---
XR soft tissue neck CLINICAL HISTORY: dysphagia COMPARISON STUDY: CT scan dated 08/17/2019 FINDINGS: There is an ununited odontoid fracture. The retropharyngeal soft tissues appear unremarkabl e. The epiglottis appears normal. There are prominent carotid bulb calcifications. There is soft tiss ue prominence of the superior mediastinum, likely secondary to tortuous/ectatic great vessels. IMPRESSION: 1. 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 Normal-appearing epiglottis. No prevertebral soft tissue widening ACT 112: Negative or not required by law. Electronically signed by: Nadir Dias M.D. 06/29/2020 11:30 AM
[2020-06-29] MEDS ORDERED: AMPICILLIN/SULBACTAM SOD 3,000 MG in 0.9 % SODIUM CHLORIDE 100 ML IV STA (12:07)
--- NOTE | 2020-06-29 12:39 | Gastrointestinal Consultation ---
Date of Consultation June 29, 2020 Assessment & Plan (1) Aspiration pneumonia: Pt is a 89 y/o male resident of [facility] w hx of dementia and Parkinson's disease who presented to ED for suspected food bolus - per nursing staff was coughing and spitting up since supper last night. On exam however no signs of drooling, spitting up or n/v. Nurse did mentioned that a piece of ham was suctioned out of pt's mouth. Lung sounds diminished w L > R opacities in CXR noted, one episode of O2 desaturation on RA. He has diminished cough and lack of ability to clear oral secretions at back of throat. Suspect he has aspiration and perhaps residual food in esophagus. Will proceed with EGD eval in OR by Dr. Jimenez. Please keep pt NPO. Will obtain consent from next of kin. Supervising Physician Co-Signing Physician Notes I have seen and discussed the managment with JARON Gautam. Consent obtained over the phone from his son to proceed with egd. Concerns for spitting up per chart review since yesterday evening- possibly ate ham. No active signs of drooling noted on today's examination, gurgling and reportedly suctioning of ham by the nurse. Only on aspirin EGD for evaluation of possible food bolus. History of Present Illness Reason for Consultation: ? Food bolus Requesting Physician: Dr. Ruth Bautista Attending Physician: Dr. Melly Jimenez History of Present Illness Pt is a 89 y/o male resident of [facility], who was brought to ED from correction as nursing staff there report he's been coughing and spitting up since supper last night. Pt w hx of dementia and Parkinson's. He is unable to provide ROS nor answering much questions. He is examined in ED room, sitting up in ED bed. He is not drooling or spitting up saliva. His making wet and gurgling sounds, oral secretions is able to be suctioned out some. Lung sounds diminished, no abd pain, no n/v observed. O2 sat currently 95% on RA though noted desaturation x 1 to 86% earlier. Medical chart including history, meds, labs and chest, soft tissue neck xray reviewed. CXR showed bilateral lung opacities L >R ? infectious/inflammatory pneumonitis. Allergies Allergy/AdvReac Type Severity Reaction Status Date / Time No Known Allergies Allergy Unknown Verified 06/29/20 10:35 Home Medications Medication Instructions Recorded Confirmed Type carbidopa-levodopa [Sinemet] 2 tab PO BID 03/26/19 06/29/20 History doxazosin [Cardura] 4 mg PO HS 03/26/19 06/29/20 History ferrous sulfate 325 mg PO DAILY 03/26/19 06/29/20 History lisinopril 20 mg PO DAILY 03/26/19 06/29/20 History metoprolol tartrate 25 mg PO QPM 03/26/19 06/29/20 History metoprolol tartrate 50 mg PO QAM 03/26/19 06/29/20 History omeprazole 20 mg PO QAM 03/26/19 06/29/20 History rosuvastatin 10 mg PO DAILY 03/26/19 06/29/20 History acetaminophen [Tylenol 8 Hour] 650 mg PO BID 08/17/19 06/29/20 History acetaminophen [Tylenol] 650 mg PO Q4H PRN 08/17/19 06/29/20 History aspirin 81 mg PO DAILY 08/17/19 06/29/20 History multivitamin 1 tab PO DAILY 08/17/19 06/29/20 History quetiapine [Seroquel] 25 mg PO BID 08/17/19 06/29/20 History albuterol sulfate 2 inh INHALATION Q6H PRN 06/29/20 06/29/20 History bisacodyl 10 mg MS DAILY PRN 06/29/20 06/29/20 History carbidopa-levodopa 1 tab PO DAILY@1400 06/29/20 06/29/20 History cholecalciferol (vitamin D3) 25 mcg PO DAILY 06/29/20 06/29/20 History escitalopram oxalate 10 mg PO HS 06/29/20 06/29/20 History finasteride 5 mg PO DAILY 06/29/20 06/29/20 History magnesium hydroxide [Milk of 30 ml PO DAILY PRN 06/29/20 06/29/20 History Magnesia] quetiapine 75 mg PO HS 06/29/20 06/29/20 History sodium phosphates [Fleet Enema] 118 ml MS HS PRN 06/29/20 06/29/20 History Patient History Medical History Aortic stenosis Bilateral sensorineural hearing loss CKD (chronic kidney disease), stage III Dyslipidemia Esophageal reflux HTN (hypertension) Hx of malignant melanoma Mild coronary artery disease Osteoarthritis Parkinsons disease Rosacea Surgical History H/O aortic valve replacement "bioprosthetic" H/O arthroscopic knee surgery H/O exploratory laparotomy H/O inguinal hernia repair H/O total hip arthroplasty History of appendectomy History of cataract surgery S/P appendectomy S/P AVR (aortic valve replacement) S/P cardiac cath S/P ear surgery Social History Smoking Status: Unknown if ever smoked Preferred Language: Andorran Feels Safe at Home: Yes Review of Systems Review of Systems: Unobtainable due to cognitive status Physical Exam Constitutional: + frail appearing, well groomed, cooperative and comfortable Eyes: PERRL, conjunctivae normal, anicteric sclerae ENMT: external ear and nose normal, oropharynx normal Neck: no crepitus on soft tissue neck Respiratory: + cough; no respiratory distress and does not use accessory muscles Auscultation: + diminished lung sounds Cardiovascular: RRR, no murmur, no edema Gastrointestinal (Abdomen): Inspection/Auscultation: + hypoactive bowel sounds Percussion/Palpation: abdomen soft; abdomen nontender Skin: no rashes, warm and dry no jaundice Psychiatric: Orientation: alert, oriented to person and cooperative Results & Data ([facility]) Vital Signs (Past 12 Hours) Vital Signs Temp Pulse Resp BP Pulse Ox 06/29/20 12:00 87 16 140/111 H 86 L 06/29/20 11:31 66 18 91 06/29/20 11:30 78 16 128/85 91 06/29/20 11:15 83 14 113/77 06/29/20 11:14 84 15 06/29/20 10:30 87 19 150/92 H 90 06/29/20 10:00 95 H 12 145/103 H 90 06/29/20 09:52 36.8 C 100 H 18 155/90 H 95 06/29/20 09:40 90 14 06/29/20 09:36 86 15 155/90 H (1) Aspiration pneumonia Aspiration pneumonia type: unspecified Laterality: bilateral Lung location: unspecified part of lung Qualified Code(s): J69.0 - Pneumonitis due to inhalation of food and vomit
[2020-06-29] MEDS ORDERED: LORazepam 2 MG/4 ML VIAL ONE (12:49)
[2020-06-29] MEDS ORDERED: LORazepam 1 MG/2 ML VIAL IV STA (12:50)
[2020-06-29] MEDS ORDERED: LORazepam 0.5 MG/1 ML VIAL IV STA (13:10)
[2020-06-29 13:53] LABS: Influenza A virus by PCR Negative (Neg); Influenza B virus by PCR Negative (Neg); RSV by PCR Negative (Neg); SARS CoV2 RNA(COVID-19) InHosp NEGATIVE (Negative)
[2020-06-29] MEDS ORDERED: fentaNYL citrate 100 MCG/2 ML VIAL IV PRN (14:31)
[2020-06-29] MEDS ORDERED: ONDANSETRON INJ 2 MG/ML 2 ML VIAL IV PRN (14:31)
[2020-06-29] MEDS ORDERED: ePHEDrine sulfate 50 MG/ML AMP IV PRN (14:31)
[2020-06-29] MEDS ORDERED: ATROPINE SULFATE 0.1 MG/ML 10ML SYR IV PRN (14:31)
--- NOTE | 2020-06-29 14:35 | Anesthesiology Consultation ---
Date of Service June 29, 2020 Assessment & Plan (1) Encounter for pre-operative examination: Chart Review Chart Review: Acceptable Risk for Surgery and Patient NOT seen in Pre Admission Testing Consults Requested medical & cardiac Pulmonary ASA ASA4 Proposed Anesthesia Anesthesia Type: General (rsi) Risk / Benefits Reviewed With: PT / POA / Parent / Guardian, Accepts Plan and Informed Consent Obtained History Surgery Operation Date: 06/29/20 08:20 Proposed Procedures p Esophagogastroduodenoscopy - Melly Jimenez MD Height/Weight Height: 6 ft Weight: 99.8 kg Allergies Allergy/AdvReac Type Severity Reaction Status Date / Time No Known Allergies Allergy Unknown Verified 06/29/20 10:35 Medications Home Medications Medication Instructions Recorded Confirmed Last Taken carbidopa-levodopa [Sinemet] 2 tab PO BID 03/26/19 06/29/20 06/28/20 doxazosin [Cardura] 4 mg PO HS 03/26/19 06/29/20 06/28/20 ferrous sulfate 325 mg PO DAILY 03/26/19 06/29/20 06/28/20 lisinopril 20 mg PO DAILY 03/26/19 06/29/20 06/28/20 metoprolol tartrate 25 mg PO QPM 03/26/19 06/29/20 06/28/20 metoprolol tartrate 50 mg PO QAM 03/26/19 06/29/20 06/28/20 omeprazole 20 mg PO QAM 03/26/19 06/29/20 06/28/20 rosuvastatin 10 mg PO DAILY 03/26/19 06/29/20 06/28/20 acetaminophen [Tylenol 8 Hour] 650 mg PO BID 08/17/19 06/29/20 06/28/20 acetaminophen [Tylenol] 650 mg PO Q4H PRN 08/17/19 06/29/20 Unknown aspirin 81 mg PO DAILY 08/17/19 06/29/20 06/28/20 multivitamin 1 tab PO DAILY 08/17/19 06/29/20 06/28/20 quetiapine [Seroquel] 25 mg PO BID 08/17/19 06/29/20 06/28/20 albuterol sulfate 2 inh INHALATION Q6H PRN 06/29/20 06/29/20 Unknown bisacodyl 10 mg VT DAILY PRN 06/29/20 06/29/20 06/27/20 carbidopa-levodopa 1 tab PO DAILY@1400 06/29/20 06/29/20 06/28/20 cholecalciferol (vitamin D3) 25 mcg PO DAILY 06/29/20 06/29/20 06/28/20 escitalopram oxalate 10 mg PO HS 06/29/20 06/29/20 06/28/20 finasteride 5 mg PO DAILY 06/29/20 06/29/20 06/28/20 magnesium hydroxide [Milk of 30 ml PO DAILY PRN 06/29/20 06/29/20 Unknown Magnesia] quetiapine 75 mg PO HS 06/29/20 06/29/20 06/28/20 sodium phosphates [Fleet Enema] 118 ml VT HS PRN 06/29/20 06/29/20 Unknown NPO Date Last Intake of Fluids: 06/29/20 Time Last Intake of Fluids: 08:00 Date Last Intake of Solids: 06/28/20 Time Last Intake of Solids: 20:00 Past Medical History Medical History (Updated 06/29/20 @ 14:35 by Gene Winkler MD) Aortic stenosis Bilateral sensorineural hearing loss CKD (chronic kidney disease), stage III Dyslipidemia Esophageal reflux HTN (hypertension) Hx of malignant melanoma Mild coronary artery disease Osteoarthritis Parkinsons disease Rosacea Exercise / Class Metabolic Activity II 4-5 Yardwork/Stairs/Walk up hill Past Surgical History Surgical History H/O aortic valve replacement "bioprosthetic" H/O arthroscopic knee surgery H/O exploratory laparotomy H/O inguinal hernia repair H/O total hip arthroplasty History of appendectomy History of cataract surgery S/P appendectomy S/P AVR (aortic valve replacement) S/P cardiac cath S/P ear surgery Past Anesthesia History No Hx of Anesthesia Complications and No Family Hx of Anesthesia Complications History of PONV No Hx of PONV and No Hx of Motion Sickness Social History Smoking Status: Unknown if ever smoked Physical Exam Vital Signs Last Vital Signs Temp 36.7 C 06/29/20 14:16 Pulse 129 H 06/29/20 14:16 Resp 20 06/29/20 14:16 BP 120/80 06/29/20 14:16 Pulse Ox 94 06/29/20 14:16 ENMT Mouth: no dentition abnormality Thyromental Distance: > or= 3.5 Finger Breadths Mallampati Class: II Neck normal visual inspection Respiratory normal respiratory effort Auscultation: lungs clear to auscultation bilaterally and + crackles Cardiovascular Rate/Rhythm: regular rate and regular rhythm Neurologic not oriented to person, place, or time Psychiatric Orientation: alert Testing Laboratory Results 06/29/20 09:50 06/29/20 11:37
--- NOTE | 2020-06-29 14:43 | Electrocardiogram Report ---
Test Reason : Blood Pressure : / mmHG Vent. Rate : 096 BPM Atrial Rate : 089 BPM P-R Int : 000 ms QRS Dur : 082 ms QT Int : 356 ms P-R-T Axes : 000 038 057 degrees QTc Int : 449 ms Atrial fibrillation Septal infarct , age undetermined Abnormal ECG When compared with ECG of 08-JUN-2016 10:32, Atrial fibrillation has replaced Sinus rhythm Septal infarct is now Present Confirmed by Tavo Yanes ([id number]) on 06/29/2020 2:42:58 PM Referred By: [facility] Confirmed By:Tavo Yanes
--- NOTE | 2020-06-29 15:03 | Operative Report ---
PG Post Operative Report Pre & Post Diagnosis Operation Date: 06/29/20 08:20 Pre-Op Diagnosis: FOOD BOLUS Post-Op Diagnosis: FOOD BOLUS I identified the patient and participated in the time-out.: Yes Procedure Operation Date: 06/29/20 08:20 Actual Procedures p Esophagogastroduodenoscopy(Not Applicable) - Melly Jimenez MD Surgeon Melly Jimenez MD [employer] Azul Ro Estimated Blood Loss 10 Findings Consistent with Post-Op Diagnosis Specimens None Description of Procedure EGD with removal of food bolus - suspected ham I attest to the content of the Intraoperative Record and any orders documented therein. Any exceptions are noted below.
--- NOTE | 2020-06-29 15:13 | History & Physical Report ---
Date of Service June 29, 2020 Assessment & Plan (1) Aspiration pneumonia: (2) Acute respiratory failure with hypoxia: -Admit to [facility] with telemetry -Patient presenting from [facility] for cough and difficulty swallowing -Suspected food bolus -Found to be hypoxic on room air at 86%, saturating well on 2 L of oxygen via nasal cannula -CXR suggestive of pneumonitis -S/p Unasyn in the ED, continue with -Nebs -GI consult -planning on EGD for possible food bolus today -speech eval - [facility] reports patient typically uses nectar thick liquids (3) Paroxysmal atrial fibrillation: -Rate controlled on metoprolol, continue -Not anticoagulated secondary to fall risk and history of thrombocytopenia (4) HTN (hypertension): -BP controlled, continue lisinopril and metoprolol (5) CKD (chronic kidney disease), stage III: -Baseline creatinine runs in the low 1's -Noted to be 1.4 today -Avoid nephrotoxic agents when able, monitor renal functions (6) Parkinsons disease: -Continue carbidopa-levodopa (7) Dementia: -Continue home meds (8) DVT prophylaxis: -SQ heparin History of Present Illness Chief Complaint: Cough, difficulty swallowing Primary Care Provider: [facility] [place] 89-year-old male with PMH mild CAD, paroxysmal atrial fibrillation not anticoagulated secondary to fall risk and thrombocytopenia, HTN, aortic stenosis s/p bioprosthetic aortic valve replacement, dementia, Parkinson's, CKD stage III, and other problems listed below who presents the ED from [facility] for evaluation of cough and difficulty swallowing. Due to patient's underlying dementia, history is unobtainable from him. I discussed with the staff at [facility]. This morning while at breakfast, patient was noted to be persistently coughing. Patient was given a small amount of nectar thickened liquids and was unable to swallow it. There was also some report of patient coughing throughout the night as well. Patient was then sent to the ED for further evaluation. While in the ED, patient was found to be hypoxic on room air at 86%. CXR is suggestive of pneumonitis. Patient was given IV Zofran, SL nitro, IV lorazepam, glucagon, GI cocktail, and IV Unasyn. Patient continues to have difficulty swallowing, requiring frequent suctioning by nursing. Nursing reports suctioning a piece of undigested ham. Patient was evaluated by GI in the ED and will have endoscopy performed for suspected food bolus. Allergies Allergy/AdvReac Type Severity Reaction Status Date / Time No Known Allergies Allergy Unknown Verified 06/29/20 10:35 Home Medications Medication Instructions Recorded Confirmed Type carbidopa-levodopa [Sinemet] 2 tab PO BID 03/26/19 06/29/20 History doxazosin [Cardura] 4 mg PO HS 03/26/19 06/29/20 History ferrous sulfate 325 mg PO DAILY 03/26/19 06/29/20 History lisinopril 20 mg PO DAILY 03/26/19 06/29/20 History metoprolol tartrate 25 mg PO QPM 03/26/19 06/29/20 History metoprolol tartrate 50 mg PO QAM 03/26/19 06/29/20 History omeprazole 20 mg PO QAM 03/26/19 06/29/20 History rosuvastatin 10 mg PO DAILY 03/26/19 06/29/20 History acetaminophen [Tylenol 8 Hour] 650 mg PO BID 08/17/19 06/29/20 History acetaminophen [Tylenol] 650 mg PO Q4H PRN 08/17/19 06/29/20 History aspirin 81 mg PO DAILY 08/17/19 06/29/20 History multivitamin 1 tab PO DAILY 08/17/19 06/29/20 History quetiapine [Seroquel] 25 mg PO BID 08/17/19 06/29/20 History albuterol sulfate 2 inh INHALATION Q6H PRN 06/29/20 06/29/20 History bisacodyl 10 mg SC DAILY PRN 06/29/20 06/29/20 History carbidopa-levodopa 1 tab PO DAILY@1400 06/29/20 06/29/20 History cholecalciferol (vitamin D3) 25 mcg PO DAILY 06/29/20 06/29/20 History escitalopram oxalate 10 mg PO HS 06/29/20 06/29/20 History finasteride 5 mg PO DAILY 06/29/20 06/29/20 History magnesium hydroxide [Milk of 30 ml PO DAILY PRN 06/29/20 06/29/20 History Magnesia] quetiapine 75 mg PO HS 06/29/20 06/29/20 History sodium phosphates [Fleet Enema] 118 ml SC HS PRN 06/29/20 06/29/20 History Past Med/Surg History Medical History Aortic stenosis Bilateral sensorineural hearing loss CKD (chronic kidney disease), stage III Dementia Dyslipidemia Esophageal reflux HTN (hypertension) Hx of malignant melanoma Mild coronary artery disease Osteoarthritis Parkinsons disease Paroxysmal atrial fibrillation Rosacea Surgical History H/O aortic valve replacement "bioprosthetic" H/O arthroscopic knee surgery H/O exploratory laparotomy H/O inguinal hernia repair H/O total hip arthroplasty History of appendectomy History of cataract surgery S/P appendectomy S/P AVR (aortic valve replacement) S/P cardiac cath S/P ear surgery Family History (Updated 06/29/20 @ 15:12 by JARON Ortez) Father Hypertension Social History Smoking Status: Former smoker Hx Alcohol Use: No Preferred Language: [place] Feels Safe at Home: Yes Physical Exam Constitutional: WD/WN, vitals as above + ill appearing (audible gurgling) Eyes: PERRL, conjunctivae normal, anicteric sclerae ENMT: Ears: no external ear abnormality Nose: no external nose abnormality Mouth: + oropharynx abnormality (increased secretions) Respiratory: normal respiratory effort and + cough; no respiratory distress and does not use accessory muscles Cardiovascular: Rate/Rhythm: regular rate and + irregularly irregular Vessels: normal peripheral pulses Extremities: + edema (+2 pitting edema BLE) Gastrointestinal (Abdomen): normal bowel sounds, soft, nontender, no hepatosplenomegaly Musculoskeletal: no cyanosis or clubbing, extremities motor strength 5/5 Skin: no rashes, warm and dry Neurologic: PERRL, EOMI, accommodation nl, no face palsy, no dysarthria Psychiatric: Orientation: alert and oriented to person; + not oriented to place and + not oriented to time Affect: euthymic affect Insight: + limited insight Results & Data Results & Data ([facility]) Vital Signs (Past 12 Hours) Vital Signs Temp Pulse Pulse Resp BP BP Pulse Ox 06/29/20 14:16 36.7 C 129 H 20 120/80 94 06/29/20 14:01 132 H 24 144/110 H 90 06/29/20 14:00 98 H 18 93 06/29/20 13:43 89 L 06/29/20 13:31 119 H 22 89 L 06/29/20 13:30 138 H 15 164/120 H 90 06/29/20 13:00 125 H 23 93 06/29/20 12:30 100 H 18 95 06/29/20 12:00 87 16 140/111 H 86 L 06/29/20 11:31 66 18 91 06/29/20 11:30 78 16 128/85 91 06/29/20 11:15 83 14 113/77 06/29/20 11:14 84 15 06/29/20 10:30 87 19 150/92 H 90 06/29/20 10:00 95 H 12 145/103 H 90 06/29/20 09:52 36.8 C 100 H 18 155/90 H 95 06/29/20 09:40 90 14 06/29/20 09:36 86 15 155/90 H Laboratory Results Short CBC 06/29/20 Range/Units 09:50 WBC 9.88 (4.8-10.8) K/uL Hgb 13.4 L (14.0-18.0) g/dL Hct 39.7 L (42-52) % Plt Count 308 (130-400) K/uL BMP 06/29/20 06/29/20 09:50 11:37 Sodium 141 Potassium 4.6 Chloride 109 H Carbon Dioxide 27 BUN 32 H Creatinine 1.48 H Glucose 84 Calcium 8.9 Cardiac Enzymes 06/29/20 Range/Units 11:37 Troponin I < 0.015 (0-0.045) ng/ml Diagnostic Findings Chest X-Ray 06/29/20 10:28 SINGLE VIEW CHEST CLINICAL HISTORY: Dysphagia. FINDINGS: An AP, portable, upright chest radiograph is compared to study dated 06/07/2016 and correlated with chest CT dated 06/02/2016. The examination is degraded by portable technique and patient rotation. The patient is status post midline sternotomy. There are calcified right hilar lymph nodes. The heart is enlarged noting atherosclerotic calcification of the thoracic aorta. The pulmonary vasculature is noncongested. Chronic interstitial thickening is similar to previous. Interstitial airspace opacities are suggested throughout both lungs, left greater than right. There is bibasilar scarring/atelectasis. No pneumothorax is seen. The skeletal structures are osteopenic. The bony thorax is grossly intact. IMPRESSION: 1. Cardiomegaly without radiographic evidence of congestive failure. 2. Interstitial airspace opacities are suggested in both lungs, left greater than right. Correlate clinically for evidence of an infectious/inflammatory pneumonitis. Radiographic follow-up to resolution is recommended. ACT 112: Negative or not required by law. Electronically signed by: Ricky Sanchez M.D. 06/29/2020 11:17 AM Soft Tissue Neck X-Ray 06/29/20 10:28 XR soft tissue neck CLINICAL HISTORY: dysphagia COMPARISON STUDY: CT scan dated 08/17/2019 FINDINGS: There is an ununited odontoid fracture. The retropharyngeal soft tissues appear unremarkable. The epiglottis appears normal. There are prominent carotid bulb calcifications. There is soft tissue prominence of the superior mediastinum, likely secondary to tortuous/ectatic great vessels. IMPRESSION: 1. 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 Normal-appearing epiglottis. No prevertebral soft tissue widening ACT 112: Negative or not required by law. Electronically signed by: Nadir Dias M.D. 06/29/2020 11:30 AM Code Status & VTE Plan Code Status Patient is a DNR as per my discussion with staff at [facility]. VTE Prophylaxis Plan VTE Prophylaxis will be ordered: Yes Supervising Physician Co-Signing Physician Notes Patient seen and examined by me, care coordinated with JARON Ortez, please refer to her note above for further detail. Patient is an 89-year-old male, who presented from [facility], for concern of aspiration and food bolus starting last evening after supper. He was seen in the ED, and GI was consulted. IV Unasyn given by ED physician for aspiration pna. Patient was taken for EGD, and food bolus found in mid/lower esophagus, and cleared from esophagus. There were secretions noted as well and per anesthesia, emesis noted. Patient initially presented with very coarse breath sounds, and cough. Currently after his EGD patient is intubated, unable to answer questions. He still has very coarse breath sounds, and currently is tachycardic. Abdomen is soft, lower extremities without any edema. Anesthesiologist discussed case with ICU attending. Further management per ICU team. Manolo Acevedo MD (1) Aspiration pneumonia Aspiration pneumonia type: unspecified Laterality: bilateral Lung location: unspecified part of lung Qualified Code(s): J69.0 - Pneumonitis due to inhalation of food and vomit
--- NOTE | 2020-06-29 15:14 | GI REPORT ---
Patient Name: Manish Granados Procedure Date: 06/29/2020 1:44 PM Date of : 1930 Admit Type: Emergency Department Age: 89 Gender: Male Attending MD: Melly Jimenez M.d. Procedure: Upper GI endoscopy Providers: Melly Jimenez M.d. Referring MD: Michele Grijalva . M.d. Indications: Suspected food bolus Medicines: See anesthesia record Complications: No immediate complications. Estimated Blood Loss: Estimated blood loss: none. Procedure: Pre-Anesthesia Assessment: - Patient identification and proposed procedure were verified prior to the procedure by the physician, the nurse and the anesthesiologist. The procedure was verified in the pre-procedure area. - Prior to the procedure, a History and Physical was performed, and patient medications, allergies and sensitivities were reviewed. The patient's tolerance of previous anesthesia was reviewed. - The risks and benefits of the procedure and the sedation options and risks were discussed with the patient. All questions were answered and informed consent was obtained. After obtaining informed consent, the endoscope was passed under direct vision. Throughout the procedure, the patient's blood pressure, pulse, and oxygen saturations were monitored continuously. The Endoscope was introduced through the mouth and advanced to the second part of duodenum. The upper GI endoscopy was somewhat difficult due to presence of food. Successful completion of the procedure was aided by performing the maneuvers documented (below) in this report. The patient tolerated the procedure well. Findings: Food was found in the middle and lower third of the esophagus with more proximal secretions that were suctioned. Successful removal of food was accomplished with a Juan R. Residual food was pushed forward into the stomach LA Grade A (one or more mucosal breaks less than 5 mm, not extending between tops of 2 mucosal folds) esophagitis without bleeding was found in the esophagus post removal. The examined stomach appeared normal. The duodenal bulb and second portion of the duodenum appeared normal. Impression: - Food in the middle and lower third of the esophagus. Removal was successful with a Juan R. Additional mild residual food was pushed forward into the esophagus. Mild esophagitis was noted in the esophagus post removal. - Normal stomach. - Normal duodenal bulb and second portion of the duodenum. Recommendation: - IV PPI for at least twenty four hours, then transition to po as tolerated. Ursula Richardson M.d. 06/29/2020 3:13:41 PM This report has been signed electronically. Note Initiated On: 06/29/2020 1:44 PM Number of Addenda: 0 I attest to the content of the Intraoperative Record and orders documented therein, exceptions below {[id number]}
--- NOTE | 2020-06-29 15:15 | Communication Note ---
Date of Service: June 29, 2020 EGD completed in OR 6. Successful removal of food in the middle to lower third of the esophagus (suspected ham based on history) with mild esophagitis noted in this area of the esophagus post removal. Normal stomach and duodenum Son will be updated with endoscopic results. IV ppi for 24 hours. Per anesthesia- he will remain intubated post procedure for now in the ICU.
[2020-06-29] MEDS ORDERED: PROPOFOL IV EMULSION 10 MG/ML 20 ML VIAL IV ONE (15:34)
[2020-06-29] MEDS ORDERED: SUCCINYLCHOLINE 100MG/5ML SYR IV ONE (15:34)
[2020-06-29] MEDS ORDERED: ROCURONIUM BROMIDE 10 MG/ML 5 ML VIAL IV ONE (15:34)
[2020-06-29] MEDS ORDERED: PHENYLEPHRINE 100MCG/ML 5ML SYR ONE (15:34)
[2020-06-29] MEDS ORDERED: LIDOCAINE HCL 2% 2 ML VIAL/AMP(20MG/ML) INFIL ONE (15:34)
[2020-06-29] MEDS ORDERED: PHENYLEPHRINE HCL 10 MG/ML VIAL ONE (15:34)
--- NOTE | 2020-06-29 16:12 | Anesthesiology Progress Note ---
Date of Service June 29, 2020 Anesthesia Post Procedure Vital Signs Vital Signs: Temp Pulse Pulse Resp BP BP Pulse Ox 06/29/20 14:16 98.1 F 129 H 20 120/80 94 06/29/20 14:01 132 H 24 144/110 H 90 06/29/20 14:00 98 H 18 93 06/29/20 13:43 89 L 06/29/20 13:31 119 H 22 89 L 06/29/20 13:30 138 H 15 164/120 H 90 06/29/20 13:00 125 H 23 93 06/29/20 12:30 100 H 18 95 06/29/20 12:00 87 16 140/111 H 86 L 06/29/20 11:31 66 18 91 06/29/20 11:30 78 16 128/85 91 06/29/20 11:15 83 14 113/77 06/29/20 11:14 84 15 06/29/20 10:30 87 19 150/92 H 90 06/29/20 10:00 95 H 12 145/103 H 90 06/29/20 09:52 98.2 F 100 H 18 155/90 H 95 06/29/20 09:40 90 14 06/29/20 09:36 86 15 155/90 H Transfer of Care Handoff Completed per policy Notes Mental Status: alert / awake / arousable and participated in evaluation Patient Amnestic to Procedure: Yes Nausea / Vomiting: adequately controlled Pain: adequately controlled Airway Patency, RR, SpO2: stable & adequate BP & HR: stable & adequate Hydration State: stable & adequate Anesthetic Complications: no major complications apparent and Pt Satisfied with anesthetic care
[2020-06-29] MEDS ORDERED: STAT IV Infusion **Titration per Protocol STA ×3 (16:24→17:17)
[2020-06-29] MEDS ORDERED: ICU PROTOCOL FOR HYPERGLYCEMIA PRN (16:24)
[2020-06-29] MEDS ORDERED: MAGNESIUM HYDROXIDE SUSP 30 ML UDC PO PRN (16:24)
[2020-06-29] MEDS ORDERED: PROPOFOL BOLUS FROM BAG IV PRN (16:24)
[2020-06-29] MEDS ORDERED: propofoL 1,000 MG/100 ML VIAL IV SCH (16:24)
[2020-06-29] MEDS ORDERED: bisacodyL 10 MG SUPP PR PRN (16:24)
[2020-06-29] MEDS ORDERED: POLYETHYLENE (MIRALAX) 17 GM PACK PO PRN (16:24)
--- NOTE | 2020-06-29 16:29 | Critical Care Consultation ---
Date of Consultation June 29, 2020 Assessment & Plan (1) Aspiration pneumonia: Reason Critically Ill: 89-year-old male here with a PMHx significant for mild CAD, paroxysmal atrial fibrillation not anticoagulated secondary to fall risk and thrombocytopenia, hypertension, aortic stenosis status post bioprosthetic aortic valve replacement, dementia, Parkinson's, CKD stage III who presented with concerns of food bolus and possible aspiration. Neuro - [facility] ICU: UNABLE TO ASSESS Sedation: Precedex and Versed Analgesia: Fentanyl - Patient sedated 2/2 need for continued intubation. Plan to maintain sedation overnight and possibly attempt extubation tomorrow. Cardiac - Patient with h/o paroxysmal afib. In afib with RVR on arrival to ICU. Amiodarone bolus given and gtt started. Respiratory - - Mechanically ventilated. Continue tonight and possibly attempt extubation tomorrow. GI - NPO. Food bolus removed during EGD and mild esophagitis noted. IV PPI per GI recommendations. RENAL/LYTES - CKD III. No significant electrolyte derangement. Replace lytes as needed. - - No concerns at this time. ENDO - - BSGs per unit protocol. SSI --> Insulin gtt per unit protocol HEME - - Stable H&H. ID - - Concer for aspiration pneumonitis. Treat with Unasyn 3 g IV every 6 hours. - Monitor fever curve. LINES/IV ACCESS - PIVs intact. DVT PROPHYLAXIS - - Heparin 5000 units subcu every 8 hours Thank you for allowing us to be part of this patient's care. Please refer to Dr. Mesa's documentation for any further recommendations. (2) Paroxysmal atrial fibrillation: (3) Acute respiratory failure with hypoxia: (4) Dementia: (5) DVT prophylaxis: Supervising Physician Co-Signing Physician Notes Dr. Goodwin was resident physician during care of patient. I separately evaluated patient for guevara portions of the history and the exam. I was present during the critical portion of medical decision making, and I discussed the case with the resident. I generally agree with the findings and plan. Obvious aspiration, concern for pneumonitis and A. fib with RVR will leave intubated overnight and correct hemodynamic issues prior to extubation. I have personally spent 40 minutes of critical care time in the direct management of this patient. This is a life/limb threatening event. This includes time spent evaluating patient, direct bedside care, chart review, placing orders, interpretation of diagnostic studies, discussion with consultants, patient, and/or family members regarding treatment decisions, as well as other required patient management activities. This time is exclusive of all separately billable procedures, and teaching time and separate from and in addition to any other critical care service time. History of Present Illness Attending Physician: Arun Acevedo MD History of Present Illness Manish Granados is an 89-year-old male with past medical history of mild CAD, paroxysmal atrial fibrillation not anticoagulated secondary to fall risk and thrombocytopenia, hypertension, aortic stenosis status post bioprosthetic aortic valve replacement, dementia, Parkinson's, CKD stage III who presented due to cough and difficulty swallowing. He lives at [facility], where the staff reported that this morning while eating breakfast patient was coughing persistently. He was given a small amount of thickened liquids and was unable to swallow. They also reported coughing overnight. Due to concerns for aspiration he was sent to our ED. In the ED he was found to be hypoxic on room air and a chest x-ray showed interstitial airspace opacities bilaterally suggestive of pneumonitis.Nurses reported suctioning a piece of undigested ham. The patient was eventually evaluated by GI and had an endoscopy performed for suspected food bolus. The anesthesiologist in his case was concerned that the patient would not do well post intubation and would likely need to be reintubated. As such, he recommended that patient be transferred intubated from the OR directly to the ICU. Upon arrival to the ICU patient remained mechanically ventilated. He was requi ring 50% FiO2 with PEEP of 5 and tidal volume 400. Patient was in atrial fibrillation with heart rate up to 170s. Allergies Allergy/AdvReac Type Severity Reaction Status Date / Time No Known Allergies Allergy Unknown Verified 06/29/20 10:35 Home Medications Medication Instructions Recorded Confirmed Type carbidopa-levodopa [Sinemet] 2 tab PO BID 03/26/19 06/29/20 History doxazosin [Cardura] 4 mg PO HS 03/26/19 06/29/20 History ferrous sulfate 325 mg PO DAILY 03/26/19 06/29/20 History lisinopril 20 mg PO DAILY 03/26/19 06/29/20 History metoprolol tartrate 25 mg PO QPM 03/26/19 06/29/20 History metoprolol tartrate 50 mg PO QAM 03/26/19 06/29/20 History omeprazole 20 mg PO QAM 03/26/19 06/29/20 History rosuvastatin 10 mg PO DAILY 03/26/19 06/29/20 History acetaminophen [Tylenol 8 Hour] 650 mg PO BID 08/17/19 06/29/20 History acetaminophen [Tylenol] 650 mg PO Q4H PRN 08/17/19 06/29/20 History aspirin 81 mg PO DAILY 08/17/19 06/29/20 History multivitamin 1 tab PO DAILY 08/17/19 06/29/20 History quetiapine [Seroquel] 25 mg PO BID 08/17/19 06/29/20 History albuterol sulfate 2 inh INHALATION Q6H PRN 06/29/20 06/29/20 History bisacodyl 10 mg FL DAILY PRN 06/29/20 06/29/20 History carbidopa-levodopa 1 tab PO DAILY@1400 06/29/20 06/29/20 History cholecalciferol (vitamin D3) 25 mcg PO DAILY 06/29/20 06/29/20 History escitalopram oxalate 10 mg PO HS 06/29/20 06/29/20 History finasteride 5 mg PO DAILY 06/29/20 06/29/20 History magnesium hydroxide [Milk of 30 ml PO DAILY PRN 06/29/20 06/29/20 History Magnesia] quetiapine 75 mg PO HS 06/29/20 06/29/20 History sodium phosphates [Fleet Enema] 118 ml FL HS PRN 06/29/20 06/29/20 History Patient History Medical History Aortic stenosis Bilateral sensorineural hearing loss CKD (chronic kidney disease), stage III Dementia Dyslipidemia Esophageal reflux HTN (hypertension) Hx of malignant melanoma Mild coronary artery disease Osteoarthritis Parkinsons disease Paroxysmal atrial fibrillation Rosacea Surgical History H/O aortic valve replacement "bioprosthetic" H/O arthroscopic knee surgery H/O exploratory laparotomy H/O inguinal hernia repair H/O total hip arthroplasty History of appendectomy History of cataract surgery S/P appendectomy S/P AVR (aortic valve replacement) S/P cardiac cath S/P ear surgery Family History (Updated 06/29/20 @ 15:12 by JARON Ortez) Father Hypertension Social History Smoking Status: Former smoker Tobacco Cessation Education Requested by Patient: No Hx Alcohol Use: Yes Alcohol type: wine and hard liquor Hx Substance Use: No Preferred Language: Thai Communication Ability: Impaired Communication Ability Comment: intubated Prenatal Teacher Required: No Beliefs That Will Affect Care: None Current Living Situation: Intermediate Feels Safe at Home: Yes Review of Systems Review of Systems: Unobtainable due to endotracheal tube Physical Exam Constitutional: well developed, well nourished and + mechanically ventilated Eyes: PERRL, conjunctivae normal, anicteric sclerae ENMT: Ears: no external ear abnormality Nose: no external nose abnormality Endotracheal tube in place Neck: normal visual inspection Respiratory: normal respiratory effort, lungs clear to auscultation Auscultation: no crackles, no rhonchi and no wheezes Cardiovascular: Rate/Rhythm: + tachycardic Gastrointestinal (Abdomen): normal bowel sounds, soft, nontender, no hepatosplenomegaly Musculoskeletal: Extremities: no cyanosis and no clubbing Skin: no rashes, warm and dry Neurologic: Sedated. No obvious neurologic deficits. Results & Data Results & [facility] ([facility]) Vital Signs (Past 12 Hours) Vital Signs Temp Pulse Pulse Resp BP BP Pulse Ox 06/29/20 16:00 141 H 16 91 06/29/20 14:16 36.7 C 129 H 20 120/80 94 06/29/20 14:01 132 H 24 144/110 H 90 06/29/20 14:00 98 H 18 93 06/29/20 13:43 89 L 06/29/20 13:31 119 H 22 89 L 06/29/20 13:30 138 H 15 164/120 H 90 06/29/20 13:00 125 H 23 93 06/29/20 12:30 100 H 18 95 06/29/20 12:00 87 16 140/111 H 86 L 06/29/20 11:31 66 18 91 06/29/20 11:30 78 16 128/85 91 06/29/20 11:15 83 14 113/77 06/29/20 11:14 84 15 06/29/20 10:30 87 19 150/92 H 90 06/29/20 10:00 95 H 12 145/103 H 90 06/29/20 09:52 36.8 C 100 H 18 155/90 H 95 06/29/20 09:40 90 14 06/29/20 09:36 86 15 155/90 H Resident Activity Tracking Resident Involvement: Resident Care Provided Care Provided: Adult Hospital Medicine (1) Aspiration pneumonia Aspiration pneumonia type: unspecified Laterality: bilateral Lung location: unspecified part of lung Qualified Code(s): J69.0 - Pneumonitis due to inhalation of food and vomit
[2020-06-29] MEDS ORDERED: METOPROLOL TARTRATE 1 MG/ML VIAL IV STA (16:39)
[2020-06-29] MEDS ORDERED: AMIODARONE / D5W 150 MG/100 ML BAG IV STA (16:44)
[2020-06-29] MEDS ORDERED: 0.2 MICRON FILTER SET 1 EA IV ONE (16:44)
[2020-06-29] MEDS ORDERED: AMIODARONE IV BOLUS & DRIP IV STA (16:44)
[2020-06-29] MEDS ORDERED: AMIODARONE / D5W 360 MG/200 ML BAG IV ONE (17:00)
[2020-06-29] MEDS: SODIUM CHLORIDE 0.9% 1000ML 1,000 ML IV SCH (17:01)
[2020-06-29] MEDS ORDERED: MIDAZOLAM HCL 1 MG/ML 2ML VIAL IV PRN (17:17)
[2020-06-29] MEDS: HEPARIN SOD 5,000 UNIT/0.5 ML VIAL SQ SCH ×2 (17:39→21:48)
[2020-06-29] MEDS: DEXMEDETOMIDINE HCL 200 MCG in SODIUM CHLORIDE 0.9% 48 ML IV SCH ×2 (18:02→19:36)
[2020-06-29] MEDS: CARBIDOPA/LEVODOPA 25/100MG TAB PO SCH ×2 (19:09→21:45)
[2020-06-29] MEDS: PHENYLEPHRINE HCL 20 MG in DEXTROSE 5% 500 ML IV SCH (19:14)
[2020-06-29] MEDS: AMPICILLIN/SULBACTAM SOD 3,000 MG in 0.9 % SODIUM CHLORIDE 100 ML IV SCH (19:53)
--- NOTE | 2020-06-29 20:25 | XRay Report ---
XR chest 1V portable CLINICAL HISTORY: intubation COMPARISON STUDY: Chest radiograph June 29, 2020 at 10:53 AM. FINDINGS: The tip of the endotracheal tube is 4.5 cm above the patricio. Nasogastric tube is coiled wit hin the stomach. Tip is within the fundus. Median sternotomy wires and prosthetic aortic valve are no evy. No pneumothorax is identified. There are small bilateral pleural effusions. Extensive bibasilar consolidation has significantly increased since prior examination. IMPRESSION: 1. Satisfactory positioning of the endotracheal tube. 2. Significant increase in bibasilar airspace opacities which favor pneumonia or aspiration pneumonit is. 3. Small bilateral pleural effusions. ACT 112: Negative or not required by law. Electronically signed by: Ermias Pardo M.D. 06/29/2020 8:24 PM
[2020-06-29] MEDS: DEXMEDETOMIDINE HCL 400 MCG in 0.9 % SODIUM CHLORIDE 96 ML IV SCH (20:32)
[2020-06-29] MEDS ORDERED: ESCITALOPRAM OXALATE 10 MG TAB PO SCH (21:00)
[2020-06-29] MEDS ORDERED: QUEtiapine FUMARATE 25 MG TABLET PO SCH (21:00)
[2020-06-29] MEDS: DOXAZosin MESYLATE 4 MG TAB PO SCH (21:44)
[2020-06-29] MEDS: QUEtiapine FUMARATE 25 MG TABLET PO SCH (21:44)
[2020-06-29] MEDS: METOPROLOL TARTRATE 25 MG TAB PO SCH (21:44)
[2020-06-29] MEDS: ACETAMINOPHEN 325 MG TAB PO SCH (21:45)
[2020-06-29] MEDS: AMIODARONE / D5W 360 MG/200 ML BAG IV SCH (23:05)
[2020-06-30] MEDS: SODIUM CHLORIDE 0.9% 1000ML 1,000 ML IV SCH ×3 (00:20→16:42)
[2020-06-30] MEDS: PHENYLEPHRINE HCL 20 MG in DEXTROSE 5% 500 ML IV SCH ×3 (00:20→10:05)
[2020-06-30] MEDS: AMPICILLIN/SULBACTAM SOD 3,000 MG in 0.9 % SODIUM CHLORIDE 100 ML IV SCH ×4 (01:47→19:59)
[2020-06-30] MEDS: DEXMEDETOMIDINE HCL 400 MCG in 0.9 % SODIUM CHLORIDE 96 ML IV SCH ×2 (01:47→18:17)
[2020-06-30 05:21] LABS: Hematocrit (blood only) 39.5 % (42-52); Hemoglobin 12.9 g/dL (14.0-18.0); Mean Corpuscular Hemoglobin 31.7 pg (25-34); Mean Corpuscular Hgb Conc 32.7 g/dL (32-36); Mean Corpuscular Volume 97.1 fL (80-100); Mean Platelet Volume 10.2 fL (7.4-10.4); Platelet Count 261 K/uL (130-400); RDW Coefficient of Variation 14.8 % (11.5-14.5); Red Blood Count 4.07 M/uL (4.7-6.1); White Blood Count 18.97 K/uL (4.8-10.8)
[2020-06-30] MEDS: HEPARIN SOD 5,000 UNIT/0.5 ML VIAL SQ SCH ×3 (05:34→22:08)
[2020-06-30 05:52] LABS: BUN Creatinine Ratio 20.6 (10-20); Creatinine Clr Calc Pharmacy 37.7 ml/min; Est GFR (African American) 43.3; Est GFR (Non-African American) 37.4; Magnesium 2.1 mg/dl (1.8-2.4); Potassium 4.8 mmol/L (3.5-5.1)
--- NOTE | 2020-06-30 08:02 | Critical Care Progress Note ---
Date of Service June 30, 2020 Assessment & Plan (1) Aspiration pneumonia: Reason Critically Ill: 89-year-old male here with a PMHx significant for mild CAD, paroxysmal atrial fibrillation not anticoagulated secondary to fall risk and thrombocytopenia, hypertension, aortic stenosis status post bioprosthetic aortic valve replacement, dementia, Parkinson's, CKD stage III who presented with concerns of food bolus and possible aspiration. Neuro - [facility]: UNABLE TO ASSESS Sedation: Precedex and Versed Analgesia: Fentanyl - Will extubate patient and wean sedation Cardiac - - Patient with h/o paroxysmal afib. In afib with RVR on arrival to ICU. Amiodarone bolus given and gtt started. - Bradycardic today, plan to stop dexmedetomidine - Patient remains on levophed and somewhat hypotensive so will start Midodrine 5mg PO TID Respiratory - - Extubated successfully this AM, saturating well. GI - - Food bolus removed during EGD and mild esophagitis noted. IV PPI per GI recommendations. - Plan to trial PO today--spoke to patient's son over the phone who is agreeable to this in the setting of risk of aspiration and a DNR/DNI RENAL/LYTES - - CKD III. No significant electrolyte derangement. - Replace lytes as needed. - Creatinine increased today and patient oliguric, will give Normosol 500cc bolus - - No concerns at this time. ENDO - - BSGs per unit protocol. SSI --> Insulin gtt per unit protocol HEME - - Stable H&H. ID - - Concern for aspiration pneumonitis. Continue Unasyn 3 g IV every 6 hours. - Monitor fever curve. LINES/IV ACCESS - PIVs intact. DVT PROPHYLAXIS - - Heparin 5000 units subcu every 8 hours Thank you for allowing us to be part of this patient's care. Please refer to Dr. Mesa's documentation for any further recommendations. (2) Paroxysmal atrial fibrillation: (3) Acute respiratory failure with hypoxia: (4) Dementia: (5) DVT prophylaxis: Admission and Anticipated Discharge Date Admission Date: June 29, 2020 Supervising Physician Co-Signing Physician Notes Dr. Goodwin was resident physician during care of patient. I separately evaluated patient for guevara portions of the history and the exam. I was present during the critical portion of medical decision making, and I discussed the case with the resident. I generally agree with the findings and plan. Patient was successfully liberated from the ventilator today later had vasoactive medications turned off. Critically ill Subjective Patient remains intubated this AM. His sedation has been weaned down some. He has been moving and reacting to his ETT. Not responsive to voice commands. Reacts to painful stimuli. Has been bradycardic in the 50s this AM, oliguric as well. Review of Systems Review of Systems: Unobtainable due to endotracheal tube Physical Exam Constitutional: + mechanically ventilated; no acute distress Eyes: PERRL, conjunctivae normal, anicteric sclerae ENMT: Ears: no external ear abnormality Nose: no external nose abnormality endotracheal tube in place, MMM Respiratory: Auscultation: + rhonchi (right side); no crackles and no wheezes Intubated Cardiovascular: Rate/Rhythm: + bradycardic Heart Sounds: normal S1 and normal S2; no gallop, no murmur and no cardiac rub Gastrointestinal (Abdomen): normal bowel sounds, soft, nontender, no hepatosplenomegaly Musculoskeletal: Extremities: no cyanosis and no clubbing Skin: no rashes, warm and dry Neurologic: Sedated Results & Data Results & Data ([facility]) Vital Signs (Past 12 Hours) Vital Signs Temp Pulse Resp BP Pulse Ox 06/30/20 05:30 62 110/61 91 06/30/20 05:00 54 L 113/69 90 06/30/20 04:45 56 L 106/67 89 L 06/30/20 04:30 37.0 C 06/30/20 04:21 58 L 101/59 L 91 06/30/20 04:00 63 110/66 93 06/30/20 03:45 53 L 103/65 92 06/30/20 03:41 59 L 20 92 06/30/20 03:30 54 L 104/63 92 06/30/20 03:15 59 L 108/68 91 06/30/20 03:00 66 96/63 L 92 06/30/20 02:45 58 L 108/71 93 06/30/20 02:30 62 112/70 93 06/30/20 02:26 64 113/73 93 06/30/20 02:00 58 L 130/80 94 06/30/20 01:00 65 117/74 93 06/30/20 00:30 58 L 112/70 93 06/30/20 00:15 64 109/71 93 06/30/20 00:00 36.9 C 62 108/70 92 06/29/20 23:45 67 105/67 92 06/29/20 23:30 63 103/67 91 06/29/20 23:29 60 20 92 06/29/20 23:21 67 06/29/20 23:00 67 103/63 91 06/29/20 22:00 66 100/64 90 06/29/20 21:04 36.9 C 06/29/20 21:00 71 108/70 91 06/29/20 20:45 66 125/80 100 06/29/20 20:30 72 121/73 100 06/29/20 20:15 72 105/67 100 Critical Care Time Critical Care Time: Yes Total Critical Care Time: 40 Resident Activity Tracking Resident Involvement: Resident Care Provided Care Provided: Adult Hospital Medicine (1) Aspiration pneumonia Aspiration pneumonia type: unspecified Laterality: bilateral Lung location: unspecified part of lung Qualified Code(s): J69.0 - Pneumonitis due to inhalation of food and vomit
--- NOTE | 2020-06-30 08:04 | XRay Report ---
XR chest 1V portable CLINICAL HISTORY: Respiratory failure COMPARISON STUDY: 06/29/2020 FINDINGS: The heart is enlarged. There are postsurgical changes of aortic valve replacement and midli ne sternotomy. There is an enteric tube which passes into the stomach. There is an endotracheal tube positioned approximately 2.5 cm above the patricio.[There are bilateral lower lung zone airspace opacit ies. There are small pleural effusions. IMPRESSION: Persistent lower lung zone airspace opacities with small bilateral pleural effusions. ACT 112: Negative or not required by law. Electronically signed by: Nadir Dias M.D. 06/30/2020 8:03 AM
[2020-06-30] MEDS: FINASTERIDE 5 MG TAB PO SCH (08:12)
[2020-06-30] MEDS: lisinopril 20 MG TAB PO SCH (08:13)
[2020-06-30] MEDS: METOPROLOL TARTRATE 25 MG TAB PO SCH (08:14)
[2020-06-30] MEDS: METOPROLOL TARTRATE 50 MG TAB PO SCH (08:15)
[2020-06-30] MEDS: CHOLECALCIFEROL 1,000 UNITS 25 MCG TAB PO SCH (08:16)
[2020-06-30] MEDS: QUEtiapine FUMARATE 25 MG TABLET PO SCH ×3 (08:16→20:02)
[2020-06-30] MEDS: CARBIDOPA/LEVODOPA 25/100MG TAB PO SCH ×3 (08:16→20:02)
[2020-06-30] MEDS: ACETAMINOPHEN 325 MG TAB PO SCH ×3 (08:17→20:02)
[2020-06-30] MEDS: ROSUVASTATIN CALCIUM 10 MG TAB PO SCH (08:43)
[2020-06-30] MEDS ORDERED: MULTIVITAMIN TAB PO SCH (09:00)
[2020-06-30] MEDS ORDERED: FERROUS SULFATE 325 MG TAB PO SCH (09:00)
[2020-06-30] MEDS ORDERED: NON-FORMULARY MEDICATION (Omeprazole 20 mg capsule,delayed release(DR/EC)) PO SCH (09:00)
[2020-06-30] MEDS ORDERED: ASPIRIN 81 MG ECTAB PO SCH (09:00)
[2020-06-30] MEDS ORDERED: NORMOSOL-R 500 ML IV ONE (09:51)
[2020-06-30] MEDS: AMIODARONE / D5W 360 MG/200 ML BAG IV SCH (11:09)
[2020-06-30] MEDS: MULTI VIT W/MINERALS LIQUID 15 ML UDP PO SCH (11:09)
[2020-06-30] MEDS: FERROUS SULFATE 325 MG/7.4 ML UDP PO SCH (11:10)
[2020-06-30] MEDS: PANTOprazole 40 MG in SYRINGE 0 ML IV SCH (11:11)
--- NOTE | 2020-06-30 11:23 | Billing Data ---
Date of Service June 29, 2020 Coding Level of Care Code Critical Care 1st - mins
[2020-06-30] MEDS: MIDODRINE HCL 2.5 MG TAB PO SCH ×2 (13:46→16:42)
--- NOTE | 2020-06-30 17:53 | Hospitalist Progress Note ---
Date of Service June 30, 2020 Assessment & Plan (1) Aspiration pneumonia: (2) Acute respiratory failure with hypoxia: Presented from [facility] for cough and difficulty swallowing due to food bolus in the esophagus Found to be hypoxic on room air at 86% CXR showed interstitial airspace opacities are suggested in both lungs, left greater than right. EGD done on 06/30 with successful removal of food in the middle to lower third of the esophagus with mild esophagitis noted in this area of the esophagus post removal. Pt was intubated for the procedure and was sent to ICU post procedure Normal stomach and duodenum GI recommended IV PPI for 24hr Pt is very high risk for aspiration Speech consulted - recommended puree diet with nectar thick liquid , ICU resident discussed with son and POA, accepts risk w/ aspiration Continue Unasyn IV for now (3) Paroxysmal atrial fibrillation: After the procedure pt was in Afib with RVR IV amiodarone was started in ICU Not anticoagulated secondary to fall risk and history of thrombocytopenia Continue metoprolol PO as pt can now take PO Continue aspirin (4) HTN (hypertension): BP low started on midodrine by ICU given he can take PO now (5) CKD (chronic kidney disease), stage III: Baseline creatinine runs in the low 1's Avoid nephrotoxic agents when able, monitor renal functions (6) Parkinsons disease: Continue carbidopa - levodopa (7) Dementia: Continue home meds (8) DVT prophylaxis: SQ heparin Admission and Anticipated Discharge Date Admission Date: June 29, 2020 Subjective Patient seen in follow-up of esophageal obstruction, aspiration Patient underwent EGD yesterday, remained intubated and was transferred to ICU This morning patient was extubated, he sitting up in bed, does not appear in distress however he is somnolent and not answering questions He was bradycardic this morning, started on IV amiodarone yesterday due to A. fib with RVR Blood pressure on lower side as well, on phenylephrine, passed speech evaluation, and was started on p.o. midodrine Continue IV Unasyn Review of systems not obtainable, care per ICU team Patient son was updated by me over the phone yesterday Review of Systems Review of Systems: Unobtainable due to cognitive status Physical Exam Physical Exam: Constitutional: elderly male, WD/WN, vitals as above + ill appearing, somnolent Eyes: PERRL, conjunctivae normal, anicteric sclerae ENMT: Ears: no external ear abnormality Nose: no external nose abnormality Respiratory: normal respiratory effort and + cough; no respiratory distress and does not use accessory muscles Cardiovascular: Bradycardic this AM, Vessels: normal peripheral pulses Extremities: + edema (+1 pitting edema BLE) Gastrointestinal (Abdomen): normal bowel sounds, soft, nontender Musculoskeletal: no cyanosis or clubbing, extremities motor strength 5/5 Skin: no rashes, warm and dry Neurologic: somnolent, was extubated this AM, does not answer questions much, appears fatigued (baseline oriented to himself only d/t dementia) Results & Data Results & Data ([facility]) Vital Signs (Past 12 Hours) Vital Signs Temp Pulse Resp BP Pulse Ox 06/30/20 16:31 107 H 117/75 06/30/20 16:30 106 H 06/30/20 16:15 88 94/48 L 06/30/20 16:00 36.8 C 84 97/49 L 06/30/20 15:45 97 H 103/61 06/30/20 15:30 105 H 107/66 06/30/20 15:15 110 H 109/79 06/30/20 15:00 122 H 107/65 89 L 06/30/20 14:45 107 H 112/65 91 06/30/20 14:30 111 H 110/73 94 06/30/20 14:15 109 H 119/69 92 06/30/20 14:00 37.0 C 123 H 131/72 89 L 06/30/20 13:45 75 106/68 95 06/30/20 13:30 80 113/68 95 06/30/20 13:15 78 115/59 L 96 06/30/20 13:00 74 114/60 95 06/30/20 12:45 79 113/56 L 06/30/20 12:31 80 94 06/30/20 12:30 80 102/65 06/30/20 12:15 84 99/60 L 94 06/30/20 12:00 37.2 C 72 96/58 L 66 L 06/30/20 11:45 67 106/62 93 06/30/20 11:31 64 95 06/30/20 11:30 61 93/54 L 95 06/30/20 11:15 70 98/61 L 95 06/30/20 11:08 66 105/64 95 06/30/20 11:00 37.0 C 101 H 130/100 92 06/30/20 10:45 63 107/64 92 06/30/20 10:31 57 L 94 06/30/20 10:30 58 L 114/62 94 06/30/20 10:15 61 97/67 L 95 06/30/20 10:01 64 92 06/30/20 10:00 58 L 90/60 L 92 06/30/20 09:45 51 L 88/52 L 94 06/30/20 09:30 54 L 87/66 L 94 06/30/20 09:15 50 L 97/57 L 95 06/30/20 09:00 37.2 C 55 L 90/55 L 93 06/30/20 08:45 52 L 95/60 L 95 06/30/20 08:30 51 L 14 96/62 L 92 06/30/20 08:15 60 97/65 L 92 06/30/20 08:00 60 18 98/59 L 91 06/30/20 07:45 50 L 94/60 L 91 06/30/20 07:30 57 L 90/56 L 92 06/30/20 07:15 57 L 108/66 91 06/30/20 07:00 52 L 100/62 91 06/30/20 06:45 58 L 103/66 92 06/30/20 06:30 54 L 108/63 91 06/30/20 06:15 59 L 108/68 91 06/30/20 06:00 54 L 108/62 91 Laboratory Results 06/30/20 06/30/20 06/29/20 Range/Units 04:38 04:38 23:43 WBC 18.97 H (4.8-10.8) K/uL RBC 4.07 L (4.7-6.1) M/uL Hgb 12.9 L (14.0-18.0) g/dL Hct 39.5 L (42-52) % MCV 97.1 (80-100) fL MCH 31.7 (25-34) pg MCHC 32.7 (32-36) g/dL RDW Std Deviation 53.0 H (36.4-46.3) fL RDW Coeff of Arthur 14.8 H (11.5-14.5) % Plt Count 261 (130-400) K/uL MPV 10.2 (7.4-10.4) fL Sodium 139 (136-145) mmol/L Potassium 4.8 (3.5-5.1) mmol/L Chloride 109 H (98-107) mmol/L Carbon Dioxide 25 (21-32) mmol/L Anion Gap 5.0 (3-11) BUN 33 H (7-18) mg/dl Creatinine 1.61 H (0.6-1.4) mg/dl Est Cr Clr Drug Dosing 37.7 ml/min Est GFR ( Amer) 43.3 Est GFR (Non-Af Amer) 37.4 BUN/Creatinine Ratio 20.6 H (10-20) Glucose 124 H (70-99) mg/dl POC Glucose 116 H (70-99) mg/dl Calcium 8.0 L (8.5-10.1) mg/dl Phosphorus 4.0 (2.5-4.9) mg/dl Magnesium 2.1 (1.8-2.4) mg/dl Nasal Screen MRSA (PCR) (Negative) 06/29/20 Range/Units 18:09 WBC (4.8-10.8) K/uL RBC (4.7-6.1) M/uL Hgb (14.0-18.0) g/dL Hct (42-52) % MCV (80-100) fL MCH (25-34) pg MCHC (32-36) g/dL RDW Std Deviation (36.4-46.3) fL RDW Coeff of Arthur (11.5-14.5) % Plt Count (130-400) K/uL MPV (7.4-10.4) fL Sodium (136-145) mmol/L Potassium (3.5-5.1) mmol/L Chloride (98-107) mmol/L Carbon Dioxide (21-32) mmol/L Anion Gap (3-11) BUN (7-18) mg/dl Creatinine (0.6-1.4) mg/dl Est Cr Clr Drug Dosing ml/min Est GFR ( Amer) Est GFR (Non-Af Amer) BUN/Creatinine Ratio (10-20) Glucose (70-99) mg/dl POC Glucose (70-99) mg/dl Calcium (8.5-10.1) mg/dl Phosphorus (2.5-4.9) mg/dl Magnesium (1.8-2.4) mg/dl Nasal Screen MRSA (PCR) Negative (Negative) Medications Administered Current Inpatient Medications Acetaminophen (Acetaminophen 325 Mg Tab) 650 mg PO BID [facility] Stop: 07/29/20 20:59 Last Admin: 06/30/20 08:44 Dose: Not Given Documented by: Aspirin (Aspirin 81 Mg Chew) 81 mg PO DAILY [facility] Stop: 07/31/20 08:59 Bisacodyl (Bisacodyl 10 Mg Supp) 10 mg ME DAILY PRN PRN Reason: Constipation Stop: 07/29/20 16:23 Carbidopa/Levodopa (Carbidopa/Levodopa 25/100mg Tab) 2 tab PO BID [facility] Stop: 07/29/20 20:59 Last Admin: 06/30/20 08:16 Dose: 2 tab Documented by: Carbidopa/Levodopa (Carbidopa/Levodopa 25/100mg Tab) 1 tab PO DAILY@1400 [facility] Stop: 07/29/20 16:23 Last Admin: 06/30/20 13:48 Dose: 1 tab Documented by: Doxazosin Mesylate (Doxazosin Mesylate 4 Mg Tab) 4 mg PO HS [facility] Stop: 07/29/20 20:59 Last Admin: 06/29/20 21:44 Dose: Not Given Documented by: Escitalopram Oxalate (Escitalopram Oxalate Oral Soln 10 Mg/10 Ml Udp) 10 mg PO HS [facility] Stop: 07/30/20 20:59 Ferrous Sulfate (Ferrous Sulfate 325 Mg/7.4 Ml Udp) 325 mg PO DAILY@1200 [facility] Stop: 07/30/20 11:59 Last Admin: 06/30/20 11:10 Dose: Not Given Documented by: Finasteride (Finasteride 5 Mg Tab) 5 mg PO DAILY [facility] Stop: 07/30/20 08:59 Last Admin: 06/30/20 08:12 Dose: Not Given Documented by: Heparin Sodium (Porcine) (Heparin Sod 5,000 Unit/0.5 Ml Vial) 5,000 units SQ Q8 [facility] Stop: 07/29/20 16:23 Last Admin: 06/30/20 13:47 Dose: 5,000 units Documented by: Ampicillin Sodium/Sulbactam Sodium 3,000 mg/ Sodium Chloride 108 mls @ 200 mls/hr IV Q6H [facility]; Protocol Stop: 07/06/20 19:59 Last Infusion: 06/30/20 14:44 Dose: Infused Documented by: Sodium Chloride (Nss 1000ml) 1,000 mls @ 100 mls/hr IV .Q10H [facility] Stop: 07/29/20 16:23 Last Admin: 06/30/20 16:42 Dose: 100 mls/hr Documented by: Pantoprazole Sodium 40 mg/ (Syringe) 10 mls @ 5 mls/min IV DAILY@1100 [facility] Stop: 07/30/20 10:59 Last Admin: 06/30/20 11:11 Dose: 5 mls/min Documented by: Amiodarone HCl/Dextrose (Nexterone / D5w) 360 mg in 200 mls @ 16.667 mls/hr IV .Q12H [facility] Stop: 06/30/20 22:59 Last Admin: 06/30/20 11:09 Dose: 0.5 mg/min, 16.7 mls/hr Documented by: Phenylephrine HCl 20 mg/ (Dextrose) 502 mls @ 0 mls/hr IV .Q0M [facility]; Protocol Stop: 07/29/20 17:29 Last Titration: 06/30/20 13:48 Dose: 0 mcg/kg/min, 0 mls/hr Documented by: Lisinopril (Lisinopril 20 Mg Tab) 20 mg PO DAILY [facility] Stop: 07/30/20 08:59 Last Admin: 06/30/20 08:13 Dose: Not Given Documented by: Magnesium Hydroxide (Magnesium Hydroxide Susp 30 Ml Udc) 30 ml PO Q6H PRN PRN Reason: Constipation Stop: 07/29/20 16:23 Metoprolol Tartrate (Metoprolol Tartrate 50 Mg Tab) 50 mg PO QAM [facility] Stop: 07/30/20 08:59 Last Admin: 06/30/20 08:15 Dose: Not Given Documented by: Metoprolol Tartrate (Metoprolol Tartrate 25 Mg Tab) 25 mg PO QPM [facility] Stop: 07/29/20 20:59 Last Admin: 06/30/20 08:14 Dose: Not Given Documented by: Midodrine (Midodrine Hcl 2.5 Mg Tab) 5 mg PO TID@0800,1200,1700 O[facility] Stop: 07/30/20 11:59 Last Admin: 06/30/20 16:42 Dose: 5 mg Documented by: Miscellaneous (Icu Protocol For Hyperglycemia) 1 ea N/A PRN PRN; Protocol PRN Reason: Hyperglycemia Protocol Stop: 07/01/20 16:23 Multivitamins/Minerals (Multi Vit W/Minerals Liquid 15 Ml Udp) 15 ml PO DAILY@1200 OG Stop: 07/30/20 11:59 Last Admin: 06/30/20 11:09 Dose: Not Given Documented by: Polyethylene Glycol (Polyethylene (Miralax) 17 Gm Pack) 17 gm PO DAILY PRN PRN Reason: Constipation Stop: 07/29/20 16:23 Quetiapine Fumarate (Quetiapine Fumarate 25 Mg Tablet) 75 mg PO HS [facility] Stop: 07/29/20 20:59 Last Admin: 06/29/20 21:44 Dose: Not Given Documented by: Quetiapine Fumarate (Quetiapine Fumarate 25 Mg Tablet) 25 mg PO BID@0900,1400 OG Stop: 07/30/20 08:59 Last Admin: 06/30/20 13:47 Dose: 25 mg Documented by: Rosuvastatin Calcium (Rosuvastatin Calcium 10 Mg Tab) 10 mg PO DAILY OG Stop: 07/30/20 08:59 Last Admin: 06/30/20 08:43 Dose: Not Given Documented by: Vitamin D (Cholecalciferol 1,000 Units 25 Mcg Tab) 1,000 units PO DAILY OG Stop: 07/30/20 08:59 Last Admin: 06/30/20 08:16 Dose: 1,000 units Documented by: (1) Aspiration pneumonia Aspiration pneumonia type: unspecified Laterality: bilateral Lung location: unspecified part of lung Qualified Code(s): J69.0 - Pneumonitis due to inhalation of food and vomit
[2020-06-30] MEDS: DOXAZosin MESYLATE 4 MG TAB PO SCH (20:03)
[2020-06-30] MEDS: ESCITALOPRAM OXALATE ORAL SOLN 10 MG/10 ML UDP PO SCH (20:03)
[2020-07-01] MEDS ORDERED: ALBUMIN 25% 12.5 GM/50 ML VIAL IV ONE (00:21)
[2020-07-01] MEDS: AMPICILLIN/SULBACTAM SOD 3,000 MG in 0.9 % SODIUM CHLORIDE 100 ML IV SCH ×4 (01:29→19:59)
[2020-07-01] MEDS: SODIUM CHLORIDE 0.9% 1000ML 1,000 ML IV SCH (01:39)
[2020-07-01 05:09] LABS: Basophils # (auto) 0.02 K/uL (0-0.2); Basophils % (auto) 0.2 %; Eosinophils # (auto) 0.15 K/uL (0-0.5); Eosinophils % (auto) 1.3 %; Hematocrit (blood only) 31.6 % (42-52); Hemoglobin 10.3 g/dL (14.0-18.0); Immature Granulocytes # (auto) 0.03 K/uL (0.00-0.02); Immature Granulocytes % (auto) 0.3 %; Lymphocytes # (auto) 1.39 K/uL (1.2-3.4); Lymphocytes % (auto) 12.5 %; Mean Corpuscular Hemoglobin 31.4 pg (25-34); Mean Corpuscular Hgb Conc 32.6 g/dL (32-36); Mean Corpuscular Volume 96.3 fL (80-100); Mean Platelet Volume 9.8 fL (7.4-10.4); Monocytes # (auto) 0.96 K/uL (0.11-0.59); Monocytes % (auto) 8.6 %; Neutrophils # (auto) 8.59 K/uL (1.4-6.5); Neutrophils % (auto) 77.1 %; Platelet Count 219 K/uL (130-400); RDW Coefficient of Variation 15.3 % (11.5-14.5); RDW Standard Deviation 53.8 fL (36.4-46.3); Red Blood Count 3.28 M/uL (4.7-6.1); White Blood Count 11.14 K/uL (4.8-10.8)
[2020-07-01 05:26] LABS: Alanine Aminotransferase < 6 U/L (12-78); Albumin Level 2.7 gm/dl (3.4-5.0); Alkaline Phosphatase 86 U/L (45-117); Aspartate Aminotransferase 16 U/L (15-37); BUN Creatinine Ratio 24.8 (10-20); Bilirubin Direct 0.2 mg/dl (0-0.2); Bilirubin,Total 0.4 mg/dl (0.2-1); Blood Urea Nitrogen 38 mg/dl (7-18); Calcium 7.9 mg/dl (8.5-10.1); Carbon Dioxide 25 mmol/L (21-32); Chloride 112 mmol/L (98-107); Creatinine Clr Calc Pharmacy 39.1 ml/min; Est GFR (African American) 45.3; Est GFR (Non-African American) 39.1; Glucose 89 mg/dl (70-99); Magnesium 2.2 mg/dl (1.8-2.4); Phosphorus 2.8 mg/dl (2.5-4.9); Potassium 3.8 mmol/L (3.5-5.1); Sodium 142 mmol/L (136-145); Total Protein 5.7 gm/dl (6.4-8.2)
[2020-07-01] MEDS: HEPARIN SOD 5,000 UNIT/0.5 ML VIAL SQ SCH ×3 (06:42→20:04)
[2020-07-01] MEDS: ACETAMINOPHEN 325 MG TAB PO SCH ×2 (07:59→20:02)
[2020-07-01] MEDS: QUEtiapine FUMARATE 25 MG TABLET PO SCH ×3 (07:59→20:01)
[2020-07-01] MEDS: CARBIDOPA/LEVODOPA 25/100MG TAB PO SCH ×3 (07:59→20:02)
[2020-07-01] MEDS: MIDODRINE HCL 2.5 MG TAB PO SCH ×3 (08:01→17:24)
[2020-07-01] MEDS: FINASTERIDE 5 MG TAB PO SCH (08:01)
[2020-07-01] MEDS: METOPROLOL TARTRATE 50 MG TAB PO SCH (08:01)
[2020-07-01] MEDS: ASPIRIN 81 MG CHEW PO SCH (08:02)
[2020-07-01] MEDS: lisinopril 20 MG TAB PO SCH (08:02)
[2020-07-01] MEDS: ROSUVASTATIN CALCIUM 10 MG TAB PO SCH (08:02)
[2020-07-01] MEDS: CHOLECALCIFEROL 1,000 UNITS 25 MCG TAB PO SCH (08:03)
--- NOTE | 2020-07-01 08:03 | XRay Report ---
XR chest 1V portable CLINICAL HISTORY: Pneumonia COMPARISON STUDY: 06/30/2020 FINDINGS: There are postsurgical changes of a midline sternotomy and aortic valve replacement. The he art remains enlarged. There are trace bilateral pleural effusions. There is been interval removal of the endotracheal tube and enteric tube. There are persistent bilateral pulmonary airspace opacities w ith slight improvement at the right lung base and perhaps minimal worsening within the left midlung z one.[ IMPRESSION: 1. Bilateral pulmonary airspace opacities with trace pleural effusions 2. Interval removal of the endotracheal tube and enteric tube. ACT 112: Negative or not required by law. Electronically signed by: Nadir Dias M.D. 07/01/2020 8:02 AM
--- NOTE | 2020-07-01 08:07 | Critical Care Progress Note ---
Date of Service July 01, 2020 Assessment & Plan (1) Aspiration pneumonia: Reason Critically Ill: 89-year-old male here with a PMHx significant for mild CAD, paroxysmal atrial fibrillation not anticoagulated secondary to fall risk and thrombocytopenia, hypertension, aortic stenosis status post bioprosthetic aortic valve replacement, dementia, Parkinson's, CKD stage III who presented with concerns of food bolus and possible aspiration. Neuro - [facility] ICU: UNABLE TO ASSESS Sedation: None - Patient extubated and sedation weaned yesterday. - Severely demented at baseline and does not respond to questions/prompts appropriately but is alert and no obvious deficits. - No current neuro concerns. Cardiac - - Patient with h/o paroxysmal afib. In afib with RVR on arrival to ICU. Amiodarone bolus and gtt received. Converted to NSR. - Patient hemodynamically stable on Midodrine 5mg PO TID, has not required levophed Respiratory - - Extubated successfully this AM, saturating well. GI - - Food bolus removed during EGD and mild esophagitis noted. IV PPI per GI recommendations. - Tolerating PO meds-- patient's son agreeable to continuing PO and accepts risk of aspiration RENAL/LYTES - - CKD III. No significant electrolyte derangement. - Replace lytes as needed. - Creatinine trending down, VERONIKA improving - - No concerns at this time. ENDO - - BSGs per unit protocol. SSI --> Insulin gtt per unit protocol HEME - - Stable H&H. ID - - Concern for aspiration pneumonitis. Continue Unasyn 3 g IV every 6 hours. - Monitor fever curve. LINES/IV ACCESS - PIVs intact. DVT PROPHYLAXIS - - Heparin 5000 units subcu every 8 hours Dispo: Stable for downgrade from ICU Thank you for allowing us to be part of this patient's care. Please refer to Dr. Mesa's documentation for any further recommendations. (2) CKD (chronic kidney disease), stage III: (3) Acute respiratory failure with hypoxia: (4) Dementia: (5) Paroxysmal atrial fibrillation: Admission and Anticipated Discharge Date Admission Date: June 29, 2020 Supervising Physician Co-Signing Physician Notes Dr. Goodwin was resident physician during care of patient. I separately evaluated patient for guevara portions of the history and the exam. I was present during the critical portion of medical decision making, and I discussed the case with the resident. I generally agree with the findings and plan. Patient DNR/DNI, off pressors as of yesterday stable for downgrade out of ICU. Willing to accept aspiration per family discussion. Subjective Patient sleepy this AM but wakes up when prompted. Not very communicative. Mumbles to questions and does not answer appropriately. Per previous conversations with patient's son, he does have significant dementia at baseline. Review of Systems Review of Systems: Unobtainable due to cognitive status Physical Exam Constitutional: + obese and comfortable; no acute distress Eyes: PERRL, conjunctivae normal, anicteric sclerae ENMT: external ear and nose normal, oropharynx normal Neck: normal visual inspection Respiratory: normal respiratory effort, lungs clear to auscultation Auscultation: no crackles, no rhonchi and no wheezes Cardiovascular: RRR, no murmur, no edema Heart Sounds: normal S1 and normal S2 Gastrointestinal (Abdomen): normal bowel sounds, soft, nontender, no hepatosplenomegaly Musculoskeletal: Extremities: no cyanosis and no clubbing Skin: no rashes, warm and dry Neurologic: Patient not cooperative to prompts. No obvious neurologic deficits and passive ROM in extremities is adequate. Psychiatric: Orientation: alert; + not oriented to person, + not oriented to place and + not oriented to time Results & Data Results & Data ([facility]) Vital Signs (Past 12 Hours) Vital Signs Temp Pulse Resp BP Pulse Ox 07/01/20 06:00 96 H 18 107/72 92 07/01/20 05:00 61 17 110/63 91 07/01/20 04:00 64 16 118/68 96 07/01/20 03:58 36.5 C 07/01/20 03:00 82 18 102/62 96 07/01/20 02:00 69 17 96/53 L 87 L 07/01/20 01:00 72 18 96/49 L 97 07/01/20 00:40 77 18 102/51 L 92 07/01/20 00:21 78 20 80/61 L 92 06/30/20 23:45 85 17 86/46 L 96 06/30/20 23:40 82 06/30/20 23:37 37.0 C 06/30/20 23:21 86 21 83/45 L 94 06/30/20 22:03 105 H 24 93/55 L 94 06/30/20 21:00 131 H 18 105/57 L 91 Resident Activity Tracking Resident Involvement: Resident Care Provided Care Provided: Adult Hospital Medicine (1) Aspiration pneumonia Aspiration pneumonia type: unspecified Laterality: bilateral Lung location: unspecified part of lung Qualified Code(s): J69.0 - Pneumonitis due to inhalation of food and vomit
--- NOTE | 2020-07-01 08:45 | Billing Data ---
Date of Service June 30, 2020 Coding Level of Care Code Critical Care 04 25- mins
[2020-07-01] MEDS ORDERED: FERROUS SULFATE 325 MG/7.4 ML UDP PO SCH (09:00)
[2020-07-01] MEDS ORDERED: MULTI VIT W/MINERALS LIQUID 15 ML UDP PO SCH (09:00)
--- NOTE | 2020-07-01 09:11 | Billing Data ---
Date of Service July 01, 2020 Coding Level of Care Code 33943 Subseq Hosp Care Lvl 2
--- NOTE | 2020-07-01 11:31 | Hospitalist Progress Note ---
Date of Service July 01, 2020 Assessment & Plan (1) Aspiration pneumonia: (2) Acute respiratory failure with hypoxia: Presented from [facility] for cough and difficulty swallowing due to food bolus in the esophagus Found to be hypoxic on room air at 86%, saturating well on 2 L of oxygen via nasal cannula CXR showed interstitial airspace opacities are suggested in both lungs, left greater than right. EGD done on 06/30 with successful removal of food in the middle to lower third of the esophagus with mild esophagitis noted in this area of the esophagus post removal. Pt was intubated for the procedure and was sent to ICU post procedure and was intubated later Normal stomach and duodenum GI recommended IV PPI for 24hr Pt is very high risk for aspiration Speech on board that recommended puree diet with nectar thick liquid Case discussed with son that want him to be as much as comfortable Permissive aspiration as per family Will consult family for goals of care WBC elevated at 11K Continue unasyn IV for now (3) Paroxysmal atrial fibrillation: After the procedure pt was in Afib with RVR IV amiodarone was started that was discontinued Not anticoagulated secondary to fall risk and history of thrombocytopenia Continue metoprolol PO Rate control currently Continue aspirin Cardiology was consulted (4) HTN (hypertension): BP stable continue lisinopril and metoprolol (5) CKD (chronic kidney disease), stage III: Baseline creatinine runs in the low 1's Creatine 1.5 today Avoid nephrotoxic agents when able, monitor renal functions (6) Parkinsons disease: Continue carbidopa-levodopa (7) Dementia: Continue home meds (8) DVT prophylaxis: SQ heparin Disposition Will transfer to [facility] Admission and Anticipated Discharge Date Admission Date: June 29, 2020 Subjective Pt was seen and examined for follow up of dysphagia Lying in bed with no distress Pt has severe dementia as per papi Parada and seems to be at his baseline Any question that I asked him and pt said that i don't know I spoke to papi Parada who is a radiologist and provided with update Son does not want any heroic management Son would like cardiology eval for the afib Review of Systems Review of Systems: All systems reviewed & are unremarkable except as noted in Subjective Physical Exam Physical Exam: General- No acute distress Head- atraumatic Eyes- PERRL, EOMI, ENT- oropharynx clear Neck- supple, no JVD Lungs- diminished BS Heart- irregular rhythm Abdomen- normal bowel sounds, soft, nontender Extremities- no calf tenderness Neuro- alert, awake, PERRL, confused Skin- warm & dry Results & Data Results & Data ([facility]) Vital Signs (Past 12 Hours) Vital Signs Temp Pulse Resp BP Pulse Ox 07/01/20 10:23 83 07/01/20 10:00 62 19 104/68 94 07/01/20 09:00 84 18 100/69 96 07/01/20 08:00 85 17 131/68 100 07/01/20 07:30 36.9 C 07/01/20 07:00 65 18 132/68 100 07/01/20 06:00 96 H 18 107/72 92 07/01/20 05:00 61 17 110/63 91 07/01/20 04:00 64 16 118/68 96 07/01/20 03:58 36.5 C 07/01/20 03:00 82 18 102/62 96 07/01/20 02:00 69 17 96/53 L 87 L 07/01/20 01:00 72 18 96/49 L 97 07/01/20 00:40 77 18 102/51 L 92 07/01/20 00:21 78 20 80/61 L 92 06/30/20 23:45 85 17 86/46 L 96 06/30/20 23:40 82 06/30/20 23:37 37.0 C (1) Aspiration pneumonia Aspiration pneumonia type: unspecified Laterality: bilateral Lung location: unspecified part of lung Qualified Code(s): J69.0 - Pneumonitis due to inhalation of food and vomit
[2020-07-01] MEDS: PANTOprazole 40 MG in SYRINGE 0 ML IV SCH (12:02)
[2020-07-01] MEDS: FERROUS SULFATE 325 MG/7.4 ML UDP PO SCH (12:08)
[2020-07-01] MEDS: MULTI VIT W/MINERALS LIQUID 15 ML UDP PO SCH (12:08)
[2020-07-01] MEDS ORDERED: METOPROLOL TARTRATE 1 MG/ML VIAL IV PRN (17:50)
[2020-07-01] MEDS: METOPROLOL TARTRATE 25 MG TAB PO SCH (20:01)
[2020-07-01] MEDS: DOXAZosin MESYLATE 4 MG TAB PO SCH (20:03)
[2020-07-01] MEDS: ESCITALOPRAM OXALATE ORAL SOLN 10 MG/10 ML UDP PO SCH (20:03)
--- NOTE | 2020-07-01 20:37 | Cardiology Consultation ---
Date of Consultation July 01, 2020 Assessment & Plan (1) Paroxysmal atrial fibrillation: (2) Dementia: (3) Aspiration pneumonia: CXR performed 07/01/20 reveals bilateral pulmonary airspace opacities with trace pleural effusions. Patient currently in atrial fibrillation, rates ranging from 100 to 120 bpm while I was interviewing him. His elevated rates are likely in part driven by his pneumonia process. Continue metoprolol. I have changed the blood pressure hold parameter to a hold for blood pressure less than 95 mm hg. I do not think a rhythm control strategy is going to be feasible especially if he has been deemed to be a poor candidate for anticoagulation on a chronic basis. His thrombocytopenia does not seem to be an issue, however, I do not think that adding anticoagulation would change his trajectory. Will continue to follow . History of Present Illness Attending Physician: Nilda Haile MD History of Present Illness Mr Granados is an 89 year old male seen in cardiology consultation per the request of Dr Haile for the evaluation of atrial fibrillation. Patient's primary hand plug shaper is Dr. Caballero of our practice with most recent visit in December 2018. Patient had presented on 06/29/2020 with aspiration. An EGD performed under general anesthesia with endotracheal intubation revealed impacted food bolus part of which was removed and part of which was pushed into the stomach. EKG performed on hospital day #1 revealed atrial fibrillation at 96 bpm with age- indeterminate septal infarction pattern, poor R wave progression in leads V2 and V3. Compared to a prior tracing dating back to May 2016, atrial fibrillation had replaced sinus rhythm in the poor R wave progression pattern was new. Per review of telemetry, he is remained in sinus rhythm throughout this hospital stay. Transient bradycardia was observed in the research director hours of 06/30/2020. Per review of the chart, it appears he had a short course on amiodarone infusion, but remained in atrial fibrillation this was discontinued. He is on oral metoprolol. He is able to take crushed / disolved pills, however it appears he has missed several doses of metoprolol due to systolic blood pressures of under 100 mmHg. He is currently on an oxime mask with a flow rate of 2 L nasal cannula and is saturating 94%. He has a baseline history of Parkinson's with dementia. He is oriented to person, but otherwise not oriented. Not following commands. Cardiac History as obtained from outpatient record: Severe aortic stenosis for which the patient underwent bioprosthetic aortic valve replacement in 2009, normal bioprosthetic valve function per echocardiogram November, Paroxysmal atrial fibrillation for which patient underwent direct-current cardioversion, May 2016 -Deemed to not be a long-term anticoagulation candidate at that time due to fall risk and chronic thrombocytopenia Allergies Allergy/AdvReac Type Severity Reaction Status Date / Time No Known Allergies Allergy Unknown Verified 06/29/20 10:35 Home Medications Medication Instructions Recorded Confirmed Type carbidopa-levodopa [Sinemet] 2 tab PO BID 03/26/19 06/29/20 History doxazosin [Cardura] 4 mg PO HS 03/26/19 06/29/20 History ferrous sulfate 325 mg PO DAILY 03/26/19 06/29/20 History lisinopril 20 mg PO DAILY 03/26/19 06/29/20 History metoprolol tartrate 25 mg PO QPM 03/26/19 06/29/20 History metoprolol tartrate 50 mg PO QAM 03/26/19 06/29/20 History omeprazole 20 mg PO QAM 03/26/19 06/29/20 History rosuvastatin 10 mg PO DAILY 03/26/19 06/29/20 History acetaminophen [Tylenol 8 Hour] 650 mg PO BID 08/17/19 06/29/20 History acetaminophen [Tylenol] 650 mg PO Q4H PRN 08/17/19 06/29/20 History aspirin 81 mg PO DAILY 08/17/19 06/29/20 History multivitamin 1 tab PO DAILY 08/17/19 06/29/20 History quetiapine [Seroquel] 25 mg PO BID 08/17/19 06/29/20 History albuterol sulfate 2 inh INHALATION Q6H PRN 06/29/20 06/29/20 History bisacodyl 10 mg [place] DAILY PRN 06/29/20 06/29/20 History carbidopa-levodopa 1 tab PO DAILY@1400 06/29/20 06/29/20 History cholecalciferol (vitamin D3) 25 mcg PO DAILY 06/29/20 06/29/20 History escitalopram oxalate 10 mg PO HS 06/29/20 06/29/20 History finasteride 5 mg PO DAILY 06/29/20 06/29/20 History magnesium hydroxide [Milk of 30 ml PO DAILY PRN 06/29/20 06/29/20 History Magnesia] quetiapine 75 mg PO HS 06/29/20 06/29/20 History sodium phosphates [Fleet Enema] 118 ml [place] HS PRN 06/29/20 06/29/20 History Patient History Medical History Aortic stenosis Bilateral sensorineural hearing loss CKD (chronic kidney disease), stage III Dementia Dyslipidemia Esophageal reflux HTN (hypertension) Hx of malignant melanoma Mild coronary artery disease Osteoarthritis Parkinsons disease Paroxysmal atrial fibrillation Rosacea Surgical History H/O aortic valve replacement "bioprosthetic" H/O arthroscopic knee surgery H/O exploratory laparotomy H/O inguinal hernia repair H/O total hip arthroplasty History of appendectomy History of cataract surgery S/P appendectomy S/P AVR (aortic valve replacement) S/P cardiac cath S/P ear surgery Family History Father Hypertension Social History Smoking Status: Former smoker Hx Alcohol Use: Yes Alcohol type: wine and hard liquor Hx Substance Use: No Preferred Language: Lebanese Communication Ability: Unable Finisher Accordion Required: No Beliefs That Will Affect Care: None Current Living Situation: [facility] Feels Safe at Home: Yes Assistive Devices: Oxygen - Continuous Physical Exam Physical Exam: Temp Pulse Resp BP Pulse Ox 36.9 C 83 19 104/68 94 07/01/20 07:30 07/01/20 10:23 07/01/20 10:00 07/01/20 10:00 07/01/20 10:00 Constitutional: Elderly, frail Respiratory: Coarse breath sounds at the apices Cardiovascular: Rate/Rhythm: + tachycardic and + irregularly irregular Heart Sounds: + murmur (I/ SM) Gastrointestinal (Abdomen): normal bowel sounds, soft, nontender, no hepatosplenomegaly Neurologic: Unable to follow commands Results & Data ([facility]) Vital Signs (Past 12 Hours) Vital Signs Pulse Resp BP Pulse Ox 07/01/20 10:23 83 07/01/20 10:00 62 19 104/68 94 07/01/20 09:00 84 18 100/69 96 Laboratory Results Cardiac Enzymes 07/01/20 Range/Units 04:18 AST 16 (15-37) U/L CBC 07/01/20 Range/Units 04:18 WBC 11.14 H (4.8-10.8) K/uL RBC 3.28 L (4.7-6.1) M/uL Hgb 10.3 L (14.0-18.0) g/dL Hct 31.6 L (42-52) % Plt Count 219 (130-400) K/uL Neut # (Auto) 8.59 H (1.4-6.5) K/uL Lymph # (Auto) 1.39 (1.2-3.4) K/uL [place] # (Auto) 0.96 H (0.11-0.59) K/uL Eos # (Auto) 0.15 (0-0.5) K/uL Baso # (Auto) 0.02 (0-0.2) K/uL Comprehensive Metabolic Panel 07/01/20 Range/Units 04:18 Sodium 142 (136-145) mmol/L Potassium 3.8 D (3.5-5.1) mmol/L Chloride 112 H (98-107) mmol/L Carbon Dioxide 25 (21-32) mmol/L BUN 38 H (7-18) mg/dl Creatinine 1.55 H (0.6-1.4) mg/dl Glucose 89 (70-99) mg/dl Calcium 7.9 L (8.5-10.1) mg/dl Direct Bilirubin 0.2 (0-0.2) mg/dl AST 16 (15-37) U/L ALT < 6 L (12-78) U/L Alkaline Phosphatase 86 (45-117) U/L Total Protein 5.7 L (6.4-8.2) gm/dl Albumin 2.7 L (3.4-5.0) gm/dl Intake and Output 07/01/20 07/01/20 07/01/20 06:59 14:59 22:59 Intake Total 1253 / 3553.927 158 / 1266 1108 / 1266 Output Total 265 / 860 400 / 400 Balance 988 / 2693.927 -242 / 866 1108 / 866 Intake: IV 1253 / 3253.927 108 / 1216 1108 / 1216 ALBUMIN 25% 12.5 gm In 50 ml @ 50 / 50 50 mls/hr IV ONE ONE Rx#: [id number] NEXTERONE / D5W 360 mg In 200 200 / 271.967 ml @ 0.5 MG/MIN 16.667 mls/hr IV .Q12H OG Rx#:[id number] Unasyn 3,000 mg In Sodium 108 / 432 108 / 216 108 / 216 Chloride 100 ml @ 200 mls/hr IV Q6H OG Rx#:[id number] Nss 1000ML 1,000 ml @ 100 mls/ 895 / 6257.775 2269 / 1000 hr IV .Q10H OG Rx#:[id number] Oral 50 / 50 Output: Urine 400 / 400 Urine Amount (Catheter) 265 / 860 [place]/Indwelling 265 / 860 Other: Weight 101.1 kg Weight Measurement Method Built in [facility] (1) Aspiration pneumonia Aspiration pneumonia type: unspecified Laterality: bilateral Lung location: unspecified part of lung Qualified Code(s): J69.0 - Pneumonitis due to inhalation of food and vomit
--- NOTE | 2020-07-01 21:08 | Communication Note ---
Date of Service: July 01, 2020 I called and updated patient's son, Tal , by phone .
[2020-07-02] MEDS: AMPICILLIN/SULBACTAM SOD 3,000 MG in 0.9 % SODIUM CHLORIDE 100 ML IV SCH ×4 (01:22→21:55)
[2020-07-02 04:57] LABS: Basophils # (auto) 0.05 K/uL (0-0.2); Basophils % (auto) 0.5 %; Eosinophils # (auto) 0.22 K/uL (0-0.5); Eosinophils % (auto) 2.2 %; Hematocrit (blood only) 33.4 % (42-52); Immature Granulocytes # (auto) 0.02 K/uL (0.00-0.02); Immature Granulocytes % (auto) 0.2 %; Lymphocytes # (auto) 1.31 K/uL (1.2-3.4); Lymphocytes % (auto) 12.9 %; Mean Corpuscular Hemoglobin 31.6 pg (25-34); Mean Corpuscular Hgb Conc 32.9 g/dL (32-36); Monocytes # (auto) 0.77 K/uL (0.11-0.59); Monocytes % (auto) 7.6 %; Neutrophils # (auto) 7.77 K/uL (1.4-6.5); Neutrophils % (auto) 76.6 %; Platelet Count 243 K/uL (130-400); Red Blood Count 3.48 M/uL (4.7-6.1); White Blood Count 10.14 K/uL (4.8-10.8)
[2020-07-02 05:30] LABS: BUN Creatinine Ratio 26.9 (10-20); Creatinine Clr Calc Pharmacy 47.4 ml/min; Est GFR (African American) 56.1; Est GFR (Non-African American) 48.4; Potassium 4.2 mmol/L (3.5-5.1)
[2020-07-02] MEDS: HEPARIN SOD 5,000 UNIT/0.5 ML VIAL SQ SCH ×3 (06:01→22:02)
[2020-07-02] MEDS: SODIUM CHLORIDE 0.9% 1000ML 1,000 ML IV SCH (08:16)
--- NOTE | 2020-07-02 09:07 | XRay Report ---
XR chest 1V portable CLINICAL HISTORY: intubation COMPARISON STUDY: Chest radiograph July 01, 2020. FINDINGS: No endotracheal tube is identified. There are median sternotomy wires and prosthetic cardia c valve. Cardiomegaly is noted. Mild interstitial thickening has slightly improved. There are trace b ilateral pleural effusions. Bibasilar opacities persist. Perihilar opacities have slightly improved. Old distal left clavicular fracture is incidentally noted. IMPRESSION: 1. Interval improvement in interstitial thickening and perihilar opacities which favor pulmonary tatiana a. 2. Persistent bibasilar opacities which may reflect consolidation or atelectasis. 3. Trace bilateral pleural effusions. ACT 112: Negative or not required by law. Electronically signed by: Ermias Pardo M.D. 07/02/2020 9:05 AM
[2020-07-02] MEDS: CHOLECALCIFEROL 1,000 UNITS 25 MCG TAB PO SCH (09:09)
[2020-07-02] MEDS: QUEtiapine FUMARATE 25 MG TABLET PO SCH ×3 (09:09→21:59)
[2020-07-02] MEDS: ROSUVASTATIN CALCIUM 10 MG TAB PO SCH (09:09)
[2020-07-02] MEDS: PANTOprazole 40 MG TAB PO SCH (09:09)
[2020-07-02] MEDS: METOPROLOL TARTRATE 50 MG TAB PO SCH (09:09)
[2020-07-02] MEDS: MIDODRINE HCL 2.5 MG TAB PO SCH ×3 (09:09→17:56)
[2020-07-02] MEDS: CARBIDOPA/LEVODOPA 25/100MG TAB PO SCH ×3 (09:10→22:00)
[2020-07-02] MEDS: ACETAMINOPHEN 325 MG TAB PO SCH ×2 (09:10→22:01)
[2020-07-02] MEDS: lisinopril 20 MG TAB PO SCH (09:11)
[2020-07-02] MEDS: FINASTERIDE 5 MG TAB PO SCH (09:11)
[2020-07-02] MEDS: ASPIRIN 81 MG CHEW PO SCH (09:11)
--- NOTE | 2020-07-02 11:11 | Palliative Care Consultation ---
Date of Consultation July 02, 2020 Assessment & Plan (1) Palliative care encounter: This individual is an 89 year old male who presented to the [facility] from [facility] after coughing and dysphagia was noticed while eating. He has a comple medical history including advanced senile degeneration of the brain and Parkinson's Disease. Additionally he has a history of malignant melanoma, HLD, pAF, CAD s/p AVR, and OA. A food bolus was identified by GI through an EGD. Speech Therapy has evaluated this individual and suggested he is a high risk for aspiration and pureed, nectar thickened liquid diet was recommended. Palliative Care was consulted to discuss goals of care. I met with Manish in room 111. He is now telemetry status, awaiting a bed. He has a one on one patient sitter at the bedside as he becomes agitated and tries to get out of bed. He is an increased fall risk with poor reorientation due to his advanced dementia and parkinson's disease. He does not focus his eye contact, and only mumbles incomprehensible, nonsensical verbage. FAST stage all of 6 and up to 7c. Speech Therapy has seen this individual as listed above. I called his son, Se at [phone] and left a non descriptive voicemail. Received notification through nursing, VILMA is the son, Tal who was not listed in the contact tab. He is now and was contacted at [phone]. Per Tal, Manish doesn't know his son, Tal. He does not know his Milagros for the past year. Tal hasn't had any positive visitation due to him being confined and with the covid precautions. He says that at baseline he is only oriented to person only. 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 He started a [employer] as well with the family. Tal states that he would want to focus on quality of life. We discussed hospice and was willing to have a referral placed to hospice, which he certainly would qualify for with a hospice diagnosis of Senile Degeneration of the Brain Tal is adamant that he would not want his father to have a PEG tube and would not want to be resuscitated. We did complete a POLST form over the phone indicating DNR/DNI, comfort measures only, trial abx and no artificial nutrition or hydration. Both original and copy placed on chart. After discussing hospice, he thinks this is what his father has been missing out on. He is going to talk to his mother, but would like to move forward with the referral process. I was able to talk to his , Milagros, on the phone at [phone] and discussed the above. She was also in support of the transition back to [facility] with Hospice support. Discussed the above with the RN, Hospitalist and case management. (2) Senile degeneration of brain: (3) Dysphagia: (4) Parkinsons disease: (5) POLST (Physician Orders for Life-Sustaining Treatment): We did complete a POLST form over the phone indicating DNR/DNI, comfort measures only, trial abx and no artificial nutrition or hydration. Both original and copy placed on chart. History of Present Illness Reason for Consultation: Goals of care Requesting Physician: Dr. Haile Attending Physician: Nilda Haile MD History of Present Illness This individual is an 89 year old male who presented to the [facility] from [facility] after coughing and dysphagia was noticed while eating. He has a complex medical history including advanced senile degeneration of the brain and Parkinson's Disease. Additionally he has a history of malignant melanoma, HLD, pAF, CAD s/p AVR, and OA. A food bolus was identified by GI through an EGD. Speech Therapy has evaluated this individual and suggested he is a high risk for aspiration and pureed, nectar thickened liquid diet was recommended. Palliative Care was consulted to discuss goals of care. Please see A/P for further details. Thanks for involving palliative medicine with this individual. Allergies Allergy/AdvReac Type Severity Reaction Status Date / Time No Known Allergies Allergy Unknown Verified 06/29/20 10:35 Home Medications Medication Instructions Recorded Confirmed Type carbidopa-levodopa [Sinemet] 2 tab PO BID 03/26/19 06/29/20 History doxazosin [Cardura] 4 mg PO HS 03/26/19 06/29/20 History ferrous sulfate 325 mg PO DAILY 03/26/19 06/29/20 History lisinopril 20 mg PO DAILY 03/26/19 06/29/20 History metoprolol tartrate 25 mg PO QPM 03/26/19 06/29/20 History metoprolol tartrate 50 mg PO QAM 03/26/19 06/29/20 History omeprazole 20 mg PO QAM 03/26/19 06/29/20 History rosuvastatin 10 mg PO DAILY 03/26/19 06/29/20 History acetaminophen [Tylenol 8 Hour] 650 mg PO BID 08/17/19 06/29/20 History acetaminophen [Tylenol] 650 mg PO Q4H PRN 08/17/19 06/29/20 History aspirin 81 mg PO DAILY 08/17/19 06/29/20 History multivitamin 1 tab PO DAILY 08/17/19 06/29/20 History quetiapine [Seroquel] 25 mg PO BID 08/17/19 06/29/20 History albuterol sulfate 2 inh INHALATION Q6H PRN 06/29/20 06/29/20 History bisacodyl 10 mg [place] DAILY PRN 06/29/20 06/29/20 History carbidopa-levodopa 1 tab PO DAILY@1400 06/29/20 06/29/20 History cholecalciferol (vitamin D3) 25 mcg PO DAILY 06/29/20 06/29/20 History escitalopram oxalate 10 mg PO HS 06/29/20 06/29/20 History finasteride 5 mg PO DAILY 06/29/20 06/29/20 History magnesium hydroxide [Milk of 30 ml PO DAILY PRN 06/29/20 06/29/20 History Magnesia] quetiapine 75 mg PO HS 06/29/20 06/29/20 History sodium phosphates [Fleet Enema] 118 ml MT HS PRN 06/29/20 06/29/20 History Patient History Medical History (Updated 07/02/20 @ 14:36 by JARON Ambrocio) Aortic stenosis Bilateral sensorineural hearing loss CKD (chronic kidney disease), stage III Dementia Dyslipidemia Dysphagia Esophageal reflux HTN (hypertension) Hx of malignant melanoma Mild coronary artery disease Osteoarthritis Palliative care encounter Parkinsons disease Paroxysmal atrial fibrillation POLST (Physician Orders for Life-Sustaining Treatment) Rosacea Senile degeneration of brain Surgical History H/O aortic valve replacement "bioprosthetic" H/O arthroscopic knee surgery H/O exploratory laparotomy H/O inguinal hernia repair H/O total hip arthroplasty History of appendectomy History of cataract surgery S/P appendectomy S/P AVR (aortic valve replacement) S/P cardiac cath S/P ear surgery Family History Father Hypertension Social History Smoking Status: Former smoker Hx Alcohol Use: Yes Alcohol type: wine and hard liquor Hx Substance Use: No Preferred Language: Malay Communication Ability: Unable Tailings Man Required: No Beliefs That Will Affect Care: None Current Living Situation: [facility] Feels Safe at Home: Yes Assistive Devices: Oxygen - Continuous Review of Systems Review of Systems: Mobile System Assessment Scale: Tiredness: 0/3 By OBS Shortness of breath: 1/3 by OBS Anxiety: 1/3 by OBS Pain: 1/3 by OBS Palliative Performance Scale: 30% Physical Exam Constitutional: + obese, + disheveled, + combative and + lethargic ENMT: Nose: + dry nasal mucous membranes Neck: trachea midline, no thyromegaly Respiratory: + cough (expiratory wheezing) Auscultation: + rhonchi Cardiovascular: Heart Sounds: normal S1, normal S2, + click and + murmur Extremities: normal capillary refill; no edema Gastrointestinal (Abdomen): normal bowel sounds, soft, nontender, no hepatosplenomegaly Skin: + dry skin and + pallor Psychiatric: A+Ox3, euthymic affect Orientation: alert Insight: + severely impaired insight Judgement: + severely impaired judgement [facility] Vital Signs (Past 12 Hours) Vital Signs Temp Pulse Resp BP BP Pulse Ox 07/02/20 07:58 37.1 C 115 H 20 162/84 H 96 07/02/20 04:00 37 C 79 18 135/75 98 07/02/20 00:00 37.2 C 91 H 20 151/82 H 95 PG Care Time/CCT Total # of Minutes Spent Total Time Spent with Patient: Total time spent is greater than 50% in coordination of care (as documented) at patient's floor/unit and/or counseling patient: 100 minutes with > 50% of that time spent assessing the patient, discussing goals of care and collaborating with IDT Coding Level of Care Code 05551 Inpt Consult Level 4 Diagnoses Palliative care encounter Z51.5 Senile degeneration of brain G31.1 Dysphagia R13.10 Parkinsons disease G20 POLST (Physician Orders for Life-Sustaining Treatment) Z78.9 Time Spent (min) 100
[2020-07-02] MEDS: FERROUS SULFATE 325 MG/7.4 ML UDP PO SCH (12:07)
[2020-07-02] MEDS: MULTI VIT W/MINERALS LIQUID 15 ML UDP PO SCH (12:07)
--- NOTE | 2020-07-02 12:13 | Cardiology Progress Note ---
Date of Service July 02, 2020 Assessment & Plan (1) Paroxysmal atrial fibrillation: (2) Acute diastolic (congestive) heart failure: (3) Dementia: (4) Aspiration pneumonia: Mild volume overload noted. Recommend Lasix 20 mg IV x1 now. Monitor fluid balance, daily weight, GFR, and electrolytes. Continue metoprolol 50 mg in a.m., 25 mg in the evening as previously ordered. Rate control strategy recommended. He is a poor candidate for long-term anticoagulation. Will continue to follow . Admission and Anticipated Discharge Date Admission Date: June 29, 2020 Subjective Patient seen and examined at the bedside. Poor historian due to underlying dementia. Telemetry reveals rate controlled atrial fibrillation this morning. (Tabular trend unavailable due to telemetry malfunction). Patient denies chest pain or shortness of breath. Nursing reports cough with scant sputum production. Fluid balance +540 cc. Review of Systems Review of Systems: Unobtainable due to cognitive status Physical Exam Constitutional: well developed and well nourished; no acute distress Respiratory: no respiratory distress and no labored breathing Auscultation: + crackles (Right base); no rales, no rhonchi and no wheezes Cardiovascular: Rate/Rhythm: regular rhythm Heart Sounds: normal S1, normal S2 and + murmur Gastrointestinal (Abdomen): Inspection/Auscultation: normal bowel sounds; abdomen not distended Percussion/Palpation: abdomen nontender and abdomen not rigid Skin: no rashes, warm and dry Results & Data ([facility]) Vital Signs (Past 12 Hours) Vital Signs Temp Pulse Pulse Resp BP BP Pulse Ox 07/02/20 11:11 37.0 C 72 19 165/93 H 93 07/02/20 08:00 74 07/02/20 07:58 37.1 C 115 H 20 162/84 H 96 07/02/20 04:00 37 C 79 18 135/75 98 (1) Aspiration pneumonia Aspiration pneumonia type: unspecified Laterality: bilateral Lung location: unspecified part of lung Qualified Code(s): J69.0 - Pneumonitis due to inhalation of food and vomit
[2020-07-02] MEDS ORDERED: FUROSEMIDE 20 MG in SYRINGE 0 ML IV ONE (12:30)
--- NOTE | 2020-07-02 17:51 | Hospitalist Progress Note ---
Date of Service July 02, 2020 Assessment & Plan (1) Aspiration pneumonia: (2) Acute respiratory failure with hypoxia: Presented from [facility] for cough and difficulty swallowing due to food bolus in the esophagus Found to be hypoxic on room air at 86%, saturating well on 2 L of oxygen via nasal cannula CXR showed interstitial airspace opacities are suggested in both lungs, left greater than right. EGD done on 06/30 with successful removal of food in the middle to lower third of the esophagus with mild esophagitis noted in this area of the esophagus post removal. Pt was intubated for the procedure and was sent to ICU post procedure and was intubated later Normal stomach and duodenum GI recommended IV PPI for 24hr Pt is very high risk for aspiration Speech on board that recommended puree diet with nectar thick liquid Case discussed with son that want him to be as much as comfortable Permissive aspiration as per family WBC trending down 10K palliative care on board for goal of care palliative care team discussed with son and pt will transition to hospice on discharge Continue unasyn IV for now while inpatient (3) Paroxysmal atrial fibrillation: After the procedure pt was in Afib with RVR IV amiodarone was started that was discontinued Not anticoagulated secondary to fall risk and history of thrombocytopenia Continue metoprolol PO Rate control currently Continue aspirin Cardiology was on board (4) HTN (hypertension): BP stable continue lisinopril and metoprolol (5) CKD (chronic kidney disease), stage III: Baseline creatinine runs in the low 1's Creatine 1.3 today Avoid nephrotoxic agents when able, monitor renal functions (6) Parkinsons disease: Continue carbidopa-levodopa (7) Dementia: Continue home meds Acute diastolic (congestive) heart failure: CXR showed Interval improvement in interstitial thickening and perihilar opacities which favor pulmonary edema. Lasix 20mg IV x1 given by cardiology Continue oxygen supplement Continue monitor (8) DVT prophylaxis: SQ heparin Disposition Plan to disharge to [facility] on Hospice Admission and Anticipated Discharge Date Admission Date: June 29, 2020 Subjective Pt was seen and examined for follow up aspiration Lying in bed with no distress due to his confusion pt required 1 to 1 observation he does not seem to be in any acute distress Denies any chest pain, palpitation and fever Review of Systems Review of Systems: All systems reviewed & are unremarkable except as noted in Subjective Physical Exam Physical Exam: General- No acute distress Head- atraumatic Eyes- PERRL, EOMI, ENT- oropharynx clear Neck- supple, no JVD Lungs- diminished BS Heart- irregular rhythm Abdomen- normal bowel sounds, soft, nontender Extremities- no calf tenderness Neuro- alert, awake, PERRL, confused Skin- warm & dry Results & Data Results & [facility] ([facility]) Vital Signs (Past 12 Hours) Vital Signs Temp Pulse Pulse Resp BP Pulse Ox 07/02/20 14:50 37.2 C 106 H 18 94 07/02/20 11:11 37.0 C 72 19 165/93 H 93 07/02/20 08:00 74 07/02/20 07:58 37.1 C 115 H 20 162/84 H 96 (1) Aspiration pneumonia Aspiration pneumonia type: unspecified Laterality: bilateral Lung location: unspecified part of lung Qualified Code(s): J69.0 - Pneumonitis due to inhalation of food and vomit
[2020-07-02] MEDS: DOXAZosin MESYLATE 4 MG TAB PO SCH (21:59)
[2020-07-02] MEDS: METOPROLOL TARTRATE 25 MG TAB PO SCH (22:00)
[2020-07-02] MEDS: ESCITALOPRAM OXALATE ORAL SOLN 10 MG/10 ML UDP PO SCH (22:00)
[2020-07-03] MEDS: AMPICILLIN/SULBACTAM SOD 3,000 MG in 0.9 % SODIUM CHLORIDE 100 ML IV SCH ×2 (03:18→08:20)
[2020-07-03 04:37] LABS: Basophils # (auto) 0.03 K/uL (0-0.2); Basophils % (auto) 0.3 %; Eosinophils # (auto) 0.07 K/uL (0-0.5); Eosinophils % (auto) 0.7 %; Hematocrit (blood only) 33.2 % (42-52); Hemoglobin 10.9 g/dL (14.0-18.0); Immature Granulocytes # (auto) 0.02 K/uL (0.00-0.02); Immature Granulocytes % (auto) 0.2 %; Lymphocytes # (auto) 1.09 K/uL (1.2-3.4); Lymphocytes % (auto) 11.1 %; Mean Corpuscular Hemoglobin 31.5 pg (25-34); Mean Corpuscular Hgb Conc 32.8 g/dL (32-36); Mean Platelet Volume 9.8 fL (7.4-10.4); Monocytes # (auto) 0.91 K/uL (0.11-0.59); Monocytes % (auto) 9.3 %; Neutrophils # (auto) 7.67 K/uL (1.4-6.5); Neutrophils % (auto) 78.4 %; Platelet Count 240 K/uL (130-400); RDW Standard Deviation 52.7 fL (36.4-46.3); Red Blood Count 3.46 M/uL (4.7-6.1); White Blood Count 9.79 K/uL (4.8-10.8)
[2020-07-03 04:52] LABS: BUN Creatinine Ratio 21.7 (10-20); Calcium 8.3 mg/dl (8.5-10.1); Creatinine Clr Calc Pharmacy 44.2 ml/min; Est GFR (African American) 51.7; Est GFR (Non-African American) 44.6; Potassium 4.1 mmol/L (3.5-5.1)
[2020-07-03] MEDS: HEPARIN SOD 5,000 UNIT/0.5 ML VIAL SQ SCH (05:34)
[2020-07-03] MEDS: ACETAMINOPHEN 325 MG TAB PO SCH (08:14)
[2020-07-03] MEDS: CARBIDOPA/LEVODOPA 25/100MG TAB PO SCH (08:14)
[2020-07-03] MEDS: MIDODRINE HCL 2.5 MG TAB PO SCH ×2 (08:15→12:04)
[2020-07-03] MEDS: CHOLECALCIFEROL 1,000 UNITS 25 MCG TAB PO SCH (08:15)
[2020-07-03] MEDS: PANTOprazole 40 MG TAB PO SCH (08:15)
[2020-07-03] MEDS: ASPIRIN 81 MG CHEW PO SCH (08:16)
[2020-07-03] MEDS: lisinopril 20 MG TAB PO SCH (08:16)
[2020-07-03] MEDS: ROSUVASTATIN CALCIUM 10 MG TAB PO SCH (08:16)
[2020-07-03] MEDS: FINASTERIDE 5 MG TAB PO SCH (08:16)
[2020-07-03] MEDS: METOPROLOL TARTRATE 50 MG TAB PO SCH (08:17)
[2020-07-03] MEDS: QUEtiapine FUMARATE 25 MG TABLET PO SCH (08:17)
--- NOTE | 2020-07-03 11:38 | Hospitalist Progress Note ---
Date of Service July 03, 2020 Assessment & Plan (1) Aspiration pneumonia: (2) Acute respiratory failure with hypoxia: Presented from [facility] for cough and difficulty swallowing due to food bolus in the esophagus Found to be hypoxic on room air at 86%, saturating well on 2 L of oxygen via nasal cannula CXR showed interstitial airspace opacities are suggested in both lungs, left greater than right. EGD done on 06/30 with successful removal of food in the middle to lower third of the esophagus with mild esophagitis noted in this area of the esophagus post removal. Pt was intubated for the procedure and was sent to ICU post procedure and was intubated later Normal stomach and duodenum GI recommended IV PPI for 24hr Pt is very high risk for aspiration Speech on board that recommended puree diet with nectar thick liquid Case discussed with son that want him to be as much as comfortable Permissive aspiration as per family WBC continues trending down to 9K Palliative care on board for goal of care palliative care team discussed with son and pt will transition to hospice on discharge Has been on Unasyn IV since 06/29/20, Will discontinue abx on discharge (3) Paroxysmal atrial fibrillation: After the procedure pt was in Afib with RVR IV amiodarone was started that was discontinued Not anticoagulated secondary to fall risk and history of thrombocytopenia Continue metoprolol PO Rate control currently Continue aspirin Cardiology was on board (4) HTN (hypertension): BP stable continue lisinopril and metoprolol (5) CKD (chronic kidney disease), stage III: Baseline creatinine runs in the low 1's Creatine 1.3 today Avoid nephrotoxic agents when able, monitor renal functions (6) Parkinsons disease: Continue carbidopa-levodopa (7) Dementia: Continue home meds Acute diastolic (congestive) heart failure: CXR showed Interval improvement in interstitial thickening and perihilar opacities which favor pulmonary edema. Will give additional Lasix 20mg IV x1 today since pt is +5K liter Continue oxygen supplement Continue monitor (8) DVT prophylaxis: SQ heparin Disposition Plan to disharge to [facility] on Hospice today Admission and Anticipated Discharge Date Admission Date: June 29, 2020 Subjective Pt was seen and examined for follow up aspiration Lying in bed with no distress with RN assisting with feeding He continues to be confused due to his dementia plan to transfer to [facility] with hospice today Review of Systems Review of Systems: All systems reviewed & are unremarkable except as noted in Subjective Physical Exam Physical Exam: General- No acute distress Head- atraumatic Eyes- PERRL, EOMI, ENT- oropharynx clear Neck- supple, no JVD Lungs- diminished BS Heart- irregular rhythm Abdomen- normal bowel sounds, soft, nontender Extremities- no calf tenderness Neuro- alert, awake, PERRL, confused Skin- warm & dry Results & Data Results & Data ([facility]) Vital Signs (Past 12 Hours) Vital Signs Temp Pulse Pulse Resp BP BP Pulse Ox 07/03/20 07:45 36.9 C 70 20 137/95 137/95 96 07/03/20 03:08 36.9 C 76 20 149/91 H 98 (1) Aspiration pneumonia Aspiration pneumonia type: unspecified Laterality: bilateral Lung location: unspecified part of lung Qualified Code(s): J69.0 - Pneumonitis due to inhalation of food and vomit
[2020-07-03] MEDS: MULTI VIT W/MINERALS LIQUID 15 ML UDP PO SCH (12:04)
[2020-07-03] MEDS: FERROUS SULFATE 325 MG/7.4 ML UDP PO SCH (12:04)
--- NOTE | 2020-07-03 12:30 | Cardiology Progress Note ---
Date of Service July 03, 2020 Assessment & Plan (1) Paroxysmal atrial fibrillation: (2) Acute diastolic (congestive) heart failure: (3) Dementia: (4) Aspiration pneumonia: Volume status improved with single dose of intravenous diuretic therapy. Hold Lasix today. Rate control strategy recommended. Continue metoprolol 50 mg in a.m., 25 mg in the evening. He is a poor candidate for long-term anticoagulation. Monitor telemetry. Will continue to follow . Admission and Anticipated Discharge Date Admission Date: June 29, 2020 Subjective Patient seen examined at the bedside. Arousable to verbal stimuli. Somewhat confused. Fluid balance -1 0.2 L with IV diuretic therapy. Telemetry demonstrates atrial fibrillation with average heart rate of 75 beats per minute. Renal function remains stable. No concerns reported by nursing. Review of Systems Review of Systems: Unobtainable due to cognitive status Physical Exam Constitutional: well developed and well nourished; no acute distress Respiratory: no respiratory distress and no labored breathing Auscultation: + crackles (Right base); no rales, no rhonchi and no wheezes Cardiovascular: Rate/Rhythm: regular rhythm Heart Sounds: normal S1, normal S2 and + murmur Gastrointestinal (Abdomen): Inspection/Auscultation: normal bowel sounds; abdomen not distended Percussion/Palpation: abdomen nontender and abdomen not rigid Skin: no rashes, warm and dry Results & Data ([facility]) Vital Signs (Past 12 Hours) Vital Signs Temp Pulse Pulse Resp BP BP Pulse Ox 07/03/20 12:05 36.5 C 76 90 25 H 137/95 119/59 L 98 07/03/20 11:48 36.5 C 90 25 H 119/59 L 98 07/03/20 07:45 36.9 C 70 20 137/95 137/95 96 07/03/20 03:08 36.9 C 76 20 149/91 H 98 (1) Aspiration pneumonia Aspiration pneumonia type: unspecified Laterality: bilateral Lung location: unspecified part of lung Qualified Code(s): J69.0 - Pneumonitis due to inhalation of food and vomit
--- NOTE | 2020-07-06 08:37 | Discharge Summary ---
Date of Service July 03, 2020 Admission HPI Per Admitting Provider 89-year-old male with PMH mild CAD, paroxysmal atrial fibrillation not anticoagulated secondary to fall risk and thrombocytopenia, HTN, aortic stenosis s/p bioprosthetic aortic valve replacement, dementia, Parkinson's, CKD stage III, and other problems listed below who presents the ED from [facility] for evaluation of cough and difficulty swallowing. Due to patient's underlying dementia, history is unobtainable from him. I discussed with the staff at [facility]. This morning while at breakfast, patient was noted to be persistently coughing. Patient was given a small amount of nectar thickened liquids and was unable to swallow it. There was also some report of patient coughing throughout the night as well. Patient was then sent to the ED for further evaluation. While in the ED, patient was found to be hypoxic on room air at 86%. CXR is suggestive of pneumonitis. Patient was given IV Zofran, SL nitro, IV lorazepam, glucagon, GI cocktail, and IV Unasyn. Patient continues to have difficulty swallowing, requiring frequent suctioning by nursing. Nursing reports suctioning a piece of undigested ham. Patient was evaluated by GI in the ED and will have endoscopy performed for suspected food bolus. Admission Exam Per Admitting Provider Constitutional: WD/WN, vitals as above + ill appearing (audible gurgling) Eyes: PERRL, conjunctivae normal, anicteric sclerae ENMT: Ears: no external ear abnormality Nose: no external nose abnormality Mouth: + oropharynx abnormality (increased secretions) Respiratory: normal respiratory effort and + cough; no respiratory distress and does not use accessory muscles Cardiovascular:regular rate and + irregularly irregular Vessels: normal peripheral pulses Extremities: + edema (+2 pitting edema BLE) Gastrointestinal: normal bowel sounds, soft, nontender, no hepatosplenomegaly Musculoskeletal: no cyanosis or clubbing, extremities motor strength 5/5 Skin: no rashes, warm and dry Neurologic: PERRL, EOMI, accommodation nl, no face palsy, no dysarthria Psychiatric: Orientation: alert and oriented to person; + not oriented to place and + not oriented to time Affect: euthymic affect Insight: + limited insight Principal Diagnosis (1) Aspiration pneumonia: (2) Acute respiratory failure with hypoxia: (3) Paroxysmal atrial fibrillation (4) HTN (hypertension): (5) CKD (chronic kidney disease), stage III: (6) Parkinsons disease: (7) Dementia: Discharge Exam General- No acute distress Head- atraumatic Eyes- PERRL, EOMI, ENT- oropharynx clear Neck- supple, no JVD Lungs- diminished BS Heart- irregular rhythm Abdomen- normal bowel sounds, soft, nontender Extremities- no calf tenderness Neuro- alert, awake, PERRL, confused Skin- warm & dry Discharge Data Allergies Allergy/AdvReac Type Severity Reaction Status Date / Time No Known Allergies Allergy Unknown Verified 06/29/20 10:35 Consultations 06/29/20 12:14 ED Decision to Admit Stat 06/29/20 15:13 Consult Candle Cutter Routine 07/01/20 11:52 Consult Palliative Care Routine 07/01/20 11:58 Consult Cardiology Routine Procedures Performed Operation Date: 06/29/20 08:20 Actual Procedures p Esophagogastroduodenoscopy(Not Applicable) - Melly Jimenez MD Ordered Studies XR chest 1V portable CLINICAL HISTORY: intubation COMPARISON STUDY: Chest radiograph July 01, 2020. FINDINGS: No endotracheal tube is identified. There are median sternotomy wires and prosthetic cardiac valve. Cardiomegaly is noted. Mild interstitial thickening has slightly improved. There are trace bilateral pleural effusions. Bibasilar opacities persist. Perihilar opacities have slightly improved. Old distal left clavicular fracture is incidentally noted. IMPRESSION: 1. Interval improvement in interstitial thickening and perihilar opacities which favor pulmonary edema. 2. Persistent bibasilar opacities which may reflect consolidation or atelectasis. 3. Trace bilateral pleural effusions. ACT 112: Negative or not required by law. Electronically signed by: Ermias Pardo M.D. 07/02/2020 9:05 AM Dictated: 07/02/20 0903Transcribed: 07/02/20 0903 XR chest 1V portable CLINICAL HISTORY: Pneumonia COMPARISON STUDY: 06/30/2020 FINDINGS: There are postsurgical changes of a midline sternotomy and aortic valve replacement. The heart remains enlarged. There are trace bilateral pleural effusions. There is been interval removal of the endotracheal tube and enteric tube. There are persistent bilateral pulmonary airspace opacities with slight improvement at the right lung base and perhaps minimal worsening within the left midlung zone.[ IMPRESSION: 1. Bilateral pulmonary airspace opacities with trace pleural effusions 2. Interval removal of the endotracheal tube and enteric tube. ACT 112: Negative or not required by law. Electronically signed by: Nadir Dias M.D. 07/01/2020 8:02 AM Dictated: 07/01/20 08Transcribed: 07/01/20 08 XR chest 1V portable CLINICAL HISTORY: Respiratory failure COMPARISON STUDY: 06/29/2020 FINDINGS: The heart is enlarged. There are postsurgical changes of aortic valve replacement and midline sternotomy. There is an enteric tube which passes into the stomach. There is an endotracheal tube positioned approximately 2.5 cm above the patricio.[There are bilateral lower lung zone airspace opacities. There are small pleural effusions. IMPRESSION: Persistent lower lung zone airspace opacities with small bilateral pleural effusions. ACT 112: Negative or not required by law. Electronically signed by: Nadir Dias M.D. 06/30/2020 8:03 AM Dictated: 06/30/20 08Transcribed: 06/30/20 08 XR chest 1V portable CLINICAL HISTORY: intubation COMPARISON STUDY: Chest radiograph June 29, 2020 at 10:53 AM. FINDINGS: The tip of the endotracheal tube is 4.5 cm above the patricio. Nasogastric tube is coiled within the stomach. Tip is within the fundus. Median sternotomy wires and prosthetic aortic valve are noted. No pneumothorax is identified. There are small bilateral pleural effusions. Extensive bibasilar consolidation has significantly increased since prior examination. IMPRESSION: 1. Satisfactory positioning of the endotracheal tube. 2. Significant increase in bibasilar airspace opacities which favor pneumonia or aspiration pneumonitis. 3. Small bilateral pleural effusions. ACT 112: Negative or not required by law. Electronically signed by: Ermias Pardo M.D. 06/29/2020 8:24 PM Dictated: 06/29/202020Transcribed: 06/29/202020 XR soft tissue neck CLINICAL HISTORY: dysphagia COMPARISON STUDY: CT scan dated 08/17/2019 FINDINGS: There is an ununited odontoid fracture. The retropharyngeal soft tissues appear unremarkable. The epiglottis appears normal. There are prominent carotid bulb calcifications. There is soft tissue prominence of the superior mediastinum, likely secondary to tortuous/ectatic great vessels. IMPRESSION: 1. 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 Normal-appearing epiglottis. No prevertebral soft tissue widening ACT 112: Negative or not required by law. Electronically signed by: Nadir Dias M.D. 06/29/2020 11:30 AM Dictated: 06/29/20 1128Transcribed: 06/29/20 1128 SINGLE VIEW CHEST CLINICAL HISTORY: Dysphagia. FINDINGS: An AP, portable, upright chest radiograph is compared to study dated 06/07/2016 and correlated with chest CT dated 06/02/2016. The examination is degraded by portable technique and patient rotation. The patient is status post midline sternotomy. There are calcified right hilar lymph nodes. The heart is enlarged noting atherosclerotic calcification of the thoracic aorta. The pulmonary vasculature is noncongested. Chronic interstitial thickening is similar to previous. Interstitial airspace opacities are suggested throughout both lungs, left greater than right. There is bibasilar scarring/atelectasis. No pneumothorax is seen. The skeletal structures are osteopenic. The bony thorax is grossly intact. IMPRESSION: 1. Cardiomegaly without radiographic evidence of congestive failure. 2. Interstitial airspace opacities are suggested in both lungs, left greater than right. Correlate clinically for evidence of an infectious/inflammatory pneumonitis. Radiographic follow-up to resolution is recommended. ACT 112: Negative or not required by law. Electronically signed by: Ricky Sanchez M.D. 06/29/2020 11:17 AM Dictated: 06/29/20 1114Transcribed: 06/29/20 1114 Hospital Course (1) Aspiration pneumonia: (2) Acute respiratory failure with hypoxia: Presented from [facility] for cough and difficulty swallowing due to food bolus in the esophagus Found to be hypoxic on room air at 86% CXR showed interstitial airspace opacities are suggested in both lungs, left greater than right. EGD done on 06/30 with successful removal of food in the middle to lower third of the esophagus with mild esophagitis noted in this area of the esophagus post removal. Pt was intubated for the procedure and was sent to ICU post procedure Normal stomach and duodenum GI recommended IV PPI for 24hr Pt is very high risk for aspiration Speech consulted - recommended puree diet with nectar thick liquid , ICU resident discussed with son and POA, accepts risk w/ aspiration Continue Unasyn IV for now (3) Paroxysmal atrial fibrillation: After the procedure pt was in Afib with RVR IV amiodarone was started in ICU Not anticoagulated secondary to fall risk and history of thrombocytopenia Continue metoprolol PO as pt can now take PO Continue aspirin (4) HTN (hypertension): BP low started on midodrine by ICU given he can take PO now (5) CKD (chronic kidney disease), stage III: Baseline creatinine runs in the low 1's Avoid nephrotoxic agents when able, monitor renal functions (6) Parkinsons disease: Continue carbidopa - levodopa (7) Dementia: Continue home meds (8) DVT prophylaxis: SQ heparin Total Time Total Time Spent Total Time Spent (In Minutes): 35 minutes Total Time Includes: Examination of the Patient, Discharge Planning, Medication Reconciliation, Communication With Other Providers and Other Discharge Plan Discharge Items Patient Disposition: Hospice - Medical Facility Reason For Visit: Aspiration, possible food bolus Discharge Diagnosis: (1) Aspiration pneumonia: (2) Acute respiratory failure with hypoxia: (3) Paroxysmal atrial fibrillation (4) HTN (hypertension): (5) CKD (chronic kidney disease), stage III: (6) Parkinsons disease: (7) Dementia: Activity: Resume your previous activity Non-emergency contact: Primary Care Provider Call non-emergency contact if: you have any medication questions Follow-up/Referrals: Taylor Ware at [place] [Primary Care Provider] - Diet: Other - See Diet Comment Diet Texture: Pureed (blended smooth) Liquid Consistency: [place] thick Addtl Attending Provider Instructions: Discharge to [facility] Continue aspiration precaution. Pt will need assistance with feeding Follow up a puree diet with nectar thick liquid (SLIPPERY, small frequent meals, No straws) Continue oxygen supplement for comfort Fall precaution Pending Studies at Discharge: No Stand-Alone Forms: My [facility] Skilled Items Patient informed of condition?: Yes DNR: No Discharge Level of Care: Skilled Communicable Disease: No Discharge Prognosis: Other Lines: None Urinary Catheter: No Medications and DC Order Prescriptions: Continued lisinopril 20 mg tablet 20 mg PO DAILY RF: 0 ferrous sulfate 325 mg (65 mg iron) Tablet 325 mg PO DAILY RF: 0 omeprazole 20 mg capsule,delayed release(DR/EC) 20 mg PO QAM RF: 0 doxazosin [Cardura] 4 mg tablet 4 mg PO HS RF: 0 carbidopa-levodopa [Sinemet] 25-100 mg tablet 2 tab PO BID RF: 0 rosuvastatin 10 mg tablet 10 mg PO DAILY RF: 0 metoprolol tartrate 25 mg tablet 50 mg PO QAM RF: 0 metoprolol tartrate 25 mg tablet 25 mg PO QPM RF: 0 aspirin 81 mg Tablet,Delayed Release (Dr/Ec) 81 mg PO DAILY RF: 0 multivitamin Tablet 1 tab PO DAILY RF: 0 quetiapine [Seroquel] 25 mg Tablet 25 mg PO BID RF: 0 acetaminophen [Tylenol 8 Hour] 650 mg Tablet Extended Release 650 mg PO BID RF: 0 acetaminophen [Tylenol] 325 mg Tablet 650 mg PO Q4H PRN (Reason: pain/fever) RF: 0 magnesium hydroxide [Milk of Magnesia] 400 mg/5 mL Suspension 30 ml PO DAILY PRN (Reason: Constipation) RF: 0 bisacodyl 10 mg Suppository 10 mg MD DAILY PRN (Reason: Constipation) RF: 0 Fleet Enema 19-7 gram/118 mL Enema 118 ml MD HS PRN (Reason: Constipation) RF: 0 carbidopa-levodopa 25-100 mg Tablet 1 tab PO DAILY@1400 RF: 0 finasteride 5 mg Tablet 5 mg PO DAILY RF: 0 escitalopram oxalate 10 mg Tablet 10 mg PO HS RF: 0 quetiapine 50 mg Tablet 75 mg PO HS RF: 0 cholecalciferol (vitamin D3) 25 mcg (1,000 unit) Tablet 25 mcg PO DAILY RF: 0 albuterol sulfate 90 mcg/actuation Aerosol Powdr Breath Activated 2 inh INHALATION Q6H PRN (Reason: Wheezing) RF: 0 Discharge Orders: Discharge Order (Routine); Ordered 07/03/20 Ordered By: Nilda Haile Admission Data Admit Date/Time: 06/29/20 12:24 Attending Provider: Nilda Haile Admit Provider: Arun Acevedo Primary Care Provider: Taylor Ware [facility] Other Providers: Taylor Ware [facility] ; Arun Acevedo ; [place] ; Haylie Lovell ; Abhishek [place] Other Interventions: Discharge Summary Assessment (RN) Last Done: 07/03/20 12:05
== END 2020-07-03 13:33 | disposition hospice, inpatient (51) | DRG 208 ==
LOC: ED 09:30 → SUATTDRO 12:24 → OR 14:00 → 1E 16:03